=== PATIENT | male | born 1935 | race Caucasian/White ===

== ENCOUNTER 2019-05-18 15:23 | Inpatient (IN) | payer MEDICARE, OTHER ==
[~2019-05-18] VITALS: Ht 170.2 cm; Wt 64.9 kg
[2019-05-18] MEDS ORDERED: Sodium Chloride 2,200 ML IVLG ONE (15:45)
--- NOTE | 2019-05-18 15:45 | Emergency Room Report ---
History of Present Illness General Chief Complaint: Syncope Source: Patient Present Illness HPI Disclaimer: Please note that this report is being documented using DRAGON technology. This can lead to erroneous entry secondary to incorrect interpretation by the dictating instrument. HPI: Patient is an 83-year-old primarily Congolese-speaking male with a reported history of an unknown "blood cancer" presenting for lightheadedness. The patient reports recent cough he states that for the first time today he felt lightheaded while in the bathroom. He nearly lost his balance but was able to catch himself and denies any head injury or full loss of consciousness. He denies recent fever but does report a nonproductive cough and feeling generally weak. He denies any recent vomiting, diarrhea, rash, chest pain, shortness of breath. He denies any swelling, heart disease, kidney or liver issues. Denies any drug or alcohol use. He is somewhat of a poor historian and does not know what medications he is supposed to be taking. He states he gets his medical care for his cancer at [facility]. He has not had any chemotherapy, no radiation, no other treatment for his cancer yet according to him. PMH: Unspecified cancer PSH: Denies Allergies: Denies Social Hx: Denies drug, alcohol or tobacco use Allergies: Coded Allergies: No Known Allergies (Unverified , 05/18/19) Nursing Documentation-PMH Past Medical History: No History, Except For Hx Cardiac Problems: Yes Hx Hypertension: Yes Hx Cancer: Yes - blood cancer Review of Systems All Other Systems: negative except mentioned in HPI Physical Exam Vital Signs Date Time Temp Pulse Resp B/P (MAP) Pulse Ox O2 Delivery O2 Flow Rate FiO2 05/18/19 15:28 98.2 100 18 125/76 (92) 99 Room Air General: Awake and alert, appears fatigued and rundown, afebrile HEENT: NC/AT. EOMI. dry mucous membranes Cardiovascular: Tachycardic. S1 and S2 normal. No murmur appreciated Resp: Tachypnea. Increased in the work of breathing. No cough, wheezing or crackles appreciated Abdomen: Abdomen is soft, nondistended. Nontender Skin: Intact. No abrasions, laceration or rash over the exposed skin MSK: Normal tone and bulk. Moving all extremities. No obvious deformity. No lower extremity edema Neuro: Awake and alert. Mentating appropriately and following commands though is a poor historian Medical Decision Making Diagnostic Impression: Primary Impression: Upper respiratory infection Additional Impressions: Pneumonia Dehydration Electrolyte abnormality CHF (congestive heart failure) ER Course This an 83-year-old male presenting for evaluation of an episode of lightheadedness occurring prior to arrival. He is a poor historian but states he does have a history of cancer and complains of a recent cough without fever or other symptoms. He is currently denying any complaints aside from feeling fatigued and worn out over the past few days. He arrives tachycardic and slightly hypotensive with systolic pressures in the high 80s. He is tachypneic and appears to be having increased work of breathing. I am concerned that there may be a infectious process occurring at this time given his recent fatigue and therefore we will start a broad infectious work-up though we will also send cardiac markers and tox screen. We will attempt to obtain records from [facility] as well. He is somewhat ill-appearing and I believe he require admission. Laboratory Tests Test 05/18/19 15:40 05/18/19 16:17 05/18/19 16:26 White Blood Count 3.2 K/UL (4.8-10.8) L Red Blood Count 3.95 M/UL (4.70-6.10) L Hemoglobin 11.6 G/DL (14.2-18.0) L Hematocrit 33.8 % (42.0-52.0) L Mean Corpuscular Volume 85 FL (80-99) Mean Corpuscular Hemoglobin 29.4 PG (27.0-31.0) Mean Corpuscular Hemoglobin Concent 34.4 G/DL (32.0-36.0) Red Cell Distribution Width 14.0 % (11.6-14.8) Platelet Count 91 K/UL (150-450) L Mean Platelet Volume 6.9 FL (6.5-10.1) Neutrophils (%) (Auto) % (45.0-75.0) Lymphocytes (%) (Auto) % (20.0-45.0) Monocytes (%) (Auto) % (1.0-10.0) Eosinophils (%) (Auto) % (0.0-3.0) Basophils (%) (Auto) % (0.0-2.0) Differential Total Cells Counted 100 Neutrophils % (Manual) 71 % (45-75) Lymphocytes % (Manual) 22 % (20-45) Monocytes % (Manual) 3 % (1-10) Eosinophils % (Manual) 0 % (0-3) Basophils % (Manual) 0 % (0-2) Band Neutrophils 4 % (0-8) Platelet Estimate Decreased L Platelet Morphology Normal Red Blood Cell Morphology Normal Sodium Level 134 MMOL/L (136-145) L Potassium Level 3.2 MMOL/L (3.5-5.1) L Chloride Level 100 MMOL/L (98-107) Carbon Dioxide Level 24 MMOL/L (21-32) Anion Gap 10 mmol/L (5-15) Blood Urea Nitrogen 22 mg/dL (7-18) H Creatinine 1.2 MG/DL (0.55-1.30) Estimate Glomerular Filtration Rate mL/min (>60) Glucose Level 132 MG/DL (74-106) H Lactic Acid Level 2.10 mmol/L (0.4-2.0) H Calcium Level 8.0 MG/DL (8.5-10.1) L Phosphorus Level 1.1 MG/DL (2.5-4.9) L Magnesium Level 1.6 MG/DL (1.8-2.4) L Total Bilirubin 1.2 MG/DL (0.2-1.0) H Direct Bilirubin 0.7 MG/DL (0.0-0.3) H Aspartate Amino Transferase (AST) 81 U/L (15-37) H Alanine Aminotransferase (ALT) 97 U/L (12-78) H Alkaline Phosphatase 363 U/L (46-116) H Total Creatine Kinase 14 U/L (26-308) L Creatine Kinase MB < 0.5 NG/ML (0.0-3.6) Creatine Kinase MB Relative Index 3.5 Troponin I 0.000 ng/mL (0.000-0.056) Pro-B-Type Natriuretic Peptide 2933 pg/mL (0-125) H Total Protein 4.6 G/DL (6.4-8.2) L Albumin 1.9 G/DL (3.4-5.0) L Globulin 2.7 g/dL Albumin/Globulin Ratio 0.7 (1.0-2.7) L Serum Alcohol < 3 mg/dL Arterial Blood pH 7.517 (7.350-7.450) Arterial Blood Partial Pressure CO2 28.4 mmHg (35.0-45.0) L Arterial Blood Partial Pressure O2 74.9 mmHg (75.0-100.0) L Arterial Blood HCO3 22.5 mmol/L (22.0-26.0) Arterial Blood Oxygen Saturation 95.3 % (95-100) Arterial Blood Base Excess 0.3 (-2-2) Mir Test Positive Urine Color Pale yellow Urine Appearance Clear Urine pH 6 (4.5-8.0) Urine Specific [place] 1.005 (1.005-1.035) Urine Protein Negative (NEGATIVE) Urine Glucose (UA) Negative (NEGATIVE) Urine Ketones Negative (NEGATIVE) Urine Blood Negative (NEGATIVE) Urine Nitrite Negative (NEGATIVE) Urine Bilirubin Negative (NEGATIVE) Urine Urobilinogen Normal MG/DL (0.0-1.0) Urine Leukocyte Esterase Negative (NEGATIVE) Urine Opiates Screen Negative (NEGATIVE) Urine Barbiturates Screen Negative (NEGATIVE) Phencyclidine (PCP) Screen Negative (NEGATIVE) Urine Amphetamines Screen Negative (NEGATIVE) Urine Benzodiazepines Screen Negative (NEGATIVE) Urine Cocaine Screen Negative (NEGATIVE) Urine Marijuana (THC) Screen Negative (NEGATIVE) Microbiology Date/Time Source Procedure Growth Status 05/18/19 15:50 Nasal Nares - Final Complete 05/18/19 15:50 Nasal Nares - Final Complete EKG Diagnostic Results EKG Time: 15:58 Rate: tachycardiac Rhythm: NSR ST Segments: no acute changes Other Impression Sinus tachycardia, left axis deviation, normal intervals, no ST segment changes. Rhythm Strip Diag. Results Rhythm Strip Time: 15:58 EP Interpretation: yes Rate: 100s Rhythm: NSR, no PVC's, no ectopy Chest X-Ray Diagnostic Results Chest X-Ray Diagnostic Results : # of Views/Limited/Complete: 1 View Indication: Shortness of Breath EP Interpretation: Yes Interpretation: no effusion, no pneumothorax, other - Possible consolidation of the right lower lobe in the left middle lobe Impression: Other - Bilateral haziness, possible infiltrates Electronically Signed by: Electronically signed by Dr. Terrell Slaughter Reevaluation Time: 18:08 Last Vital Signs Date Time Temp Pulse Resp B/P (MAP) Pulse Ox O2 Delivery O2 Flow Rate FiO2 05/18/19 15:28 98.2 100 18 125/76 (92) 99 Room Air Reevaluation Impression Labs show hyponatremia, hypokalemia, slightly elevated lactate at 2.1, hypomagnesemia and phosphatemia. His peptide is slightly elevated but troponin is negative. Questionable infiltrates on chest x-ray but treated with ceftriaxone and azithromycin. I discussed this with his PMD, Dr. Mcneill, who is requesting the patient be admitted to [facility]. He states that because of his CML he had a similar presentation several months ago where it became septic from severe pneumonia. He was requesting that the patient be transferred to [facility] which we will arrange. He is stable for transfer.. 2100: Could not arrange transfer to [facility]. The patient will be admitted to our center and then possibly transferred as an inpatient. Remains in stable condition will be admitted to telemetry. Disposition: ADMITTED INPATIENT Condition: Serious Terrell Slaughter MD May 18, 2019 15:45
[2019-05-18 15:58] VITALS: BP 89/56
--- NOTE | 2019-05-18 16:00 | NUR ---
ED Nurse Note:pt. was BIBA from home with syncopal epysode today, pt. fell without head injury, A/Ox3 blood and cultures sent to labs, given IV fluids,
[2019-05-18 16:06] LABS: HEMATOCRIT 33.8 % (42.0-52.0); HEMOGLOBIN 11.6 G/DL (14.2-18.0); MEAN CORPUSCULAR VOLUME 85 FL (80-99); PLATELET COUNT 91 K/UL (150-450); RED BLOOD COUNT 3.95 M/UL (4.70-6.10); WHITE BLOOD COUNT 3.2 K/UL (4.8-10.8)
[2019-05-18 16:17] LABS: ANION GAP 10 mmol/L (5-15); BLOOD UREA NITROGEN 22 mg/dL (7-18); CARBON DIOXIDE 24 MMOL/L (21-32); CHLORIDE 100 MMOL/L (98-107); CREATININE 1.2 MG/DL (0.55-1.30); POTASSIUM 3.2 MMOL/L (3.5-5.1); SODIUM 134 MMOL/L (136-145)
[2019-05-18] MEDS ORDERED: SULFAMETHOXAZO1 EAC1 ORAL (16:23)
[2019-05-18] MEDS ORDERED: AVODART0.5 MG ORAL (16:23)
[2019-05-18] MEDS ORDERED: FAMOTIDINE20 MG ORAL (16:23)
[2019-05-18] MEDS ORDERED: FLOMAX0.4 MG ORAL (16:23)
[2019-05-18] MEDS ORDERED: RENA-VITE RX T1 EAC1 PO (16:23)
[2019-05-18] MEDS ORDERED: SODIUM BICARBO650 MG PO (16:23)
[2019-05-18] MEDS ORDERED: NEXIUM40 MG ORAL (16:23)
[2019-05-18 16:24] LABS: PHOSPHORUS 1.1 MG/DL (2.5-4.9)
[2019-05-18 16:33] LABS: ALANINE AMINOTRANSFERASE 97 U/L (12-78); ALBUMIN 1.9 G/DL (3.4-5.0); ALBUMIN/GLOBULIN RATIO 0.7 (1.0-2.7); ALKALINE PHOSPHATASE 363 U/L (46-116); ASPARTATE AMINO TRANSFERASE 81 U/L (15-37); BILIRUBIN,TOTAL 1.2 MG/DL (0.2-1.0); CKMB < 0.5 NG/ML (0.0-3.6); CREATINE KINASE 14 U/L (26-308)
--- NOTE | 2019-05-18 16:33 | NUR ---
ED Nurse Note:urine sent to labs, continue to monitor
[2019-05-18 16:35] VITALS: BP 113/73
[2019-05-18 16:35] LABS: BILIRUBIN,DIRECT 0.7 MG/DL (0.0-0.3)
[2019-05-18 16:53] LABS: APPEARANCE,URINE CLEAR; BILIRUBIN, URINE NEGATIVE (NEGATIVE); COLOR,URINE PALE YELLOW; GLUCOSE, URINE (UA) NEGATIVE (NEGATIVE); KETONES,URINE NEGATIVE (NEGATIVE); LEUKOCYTE ESTERASE ,URINE NEGATIVE (NEGATIVE); NITRITE,URINE NEGATIVE (NEGATIVE); PH,URINE 6 (4.5-8.0); PROTEIN,URINE NEGATIVE (NEGATIVE); UROBILINOGEN,URINE NORMAL MG/DL (0.0-1.0)
--- NOTE | 2019-05-18 17:07 | Diagnostic Imaging Report ---
Indication: Shortness of breath Technique: One view of the chest Comparison: none Findings: There is equivocal minimal interstitial prominence. Lungs and pleural spaces are clear otherwise. The heart size is normal. There is torturous ectatic and calcified. Upper mediastinum is unremarkable. Impression: Equivocal minimal interstitial prominence, could indicate mild interstitial edema. Correlate with clinical findings No acute process otherwise
[2019-05-18] MEDS ORDERED: Azithromycin 500 MG in NS 275 ML IV ONE (17:15)
[2019-05-18] MEDS ORDERED: cefTRIAXone 1 GM in NS 55 ML IVPB ONE (17:15)
--- NOTE | 2019-05-18 18:02 | NUR ---
ED Nurse Note:sent lactic reflax to labs
[2019-05-18 19:12] VITALS: BP 98/60
--- NOTE | 2019-05-18 19:38 | NUR ---
ER Nurse Note: Was reported that repeat lactic acid reflex was hemolyzed by lab; redrew and sent to lab. Pt stable, no signs of distress; calm and resting in bed. SLIV RT AC; patent. Awaiting admission orders; will conitinue to jake.
[2019-05-18 20:43] VITALS: BP 100/58
--- NOTE | 2019-05-18 20:44 | NUR ---
ER Nurse Note: Pt asleep, easily arousable, no signs of distress. Pt VSS, 2L NC at 98% O2, denies pain. SLIV RT AC; patent. All orders completed per ERMD orders. All safety measures met; will continue to montior.
[2019-05-18 23:00] VITALS: BP 110/64
--- NOTE | 2019-05-18 23:00 | NUR ---
ER Nurse Note: Report given to CAITY Sylvester for continuity of care. Pt stable, no signs of distress.
[2019-05-19] VITALS: BP 107/63
--- NOTE | 2019-05-19 00:18 | NUR ---
NURSE NOTES: Received pt from CAITY Perez. Pt awake, alert, and talkative (Icelandic speaking only). Bed in lowest position. Call light within reach. Skin intact. Nova Ratio bottle inspector utilized. Called and left a message with Dr. Lezama, he called back with the following orders: - continue home meds - regular diet - cbc, bmp daily - ekg in am - continue abx from ER - scd dvt proph - troponin - blood culture, urine culture - mg 2gm iv - k phos 60 mv - prn zofran Will input vitals and will continue to monitor.
[2019-05-19] MEDS ORDERED: Potassium Phosphate 30 MM in NS 275 ML IV ONE ×3 (02:30→15:00)
[2019-05-19] MEDS ORDERED: traMADol 50mg tab ORAL PRN (02:30)
[2019-05-19] MEDS: NS w/KCl 20mEq 1000ml 1,000 ML IV SCH ×2 (02:30→15:50)
[2019-05-19] MEDS ORDERED: ASPIR 8181 MG ORAL (02:50)
[2019-05-19 04:00] VITALS: BP 101/58
--- NOTE | 2019-05-19 07:30 | NUR ---
NURSE NOTES: Received report from CAITY bryan. patient aox3 , easlily roused adn breathing easily with no sign of cardiac or respiratory distress. Bed in lowest, locked position and bed alarm on. IVF running. patient reluctant to eat despite family encouragement at bedside and this RN multiple attempts to encourage po fluids and protein. Lung sounds diminished but clear on auscultation and bowel sounds faint but present. Skin intact clean and dry with no signs of breakdown . patient can reposition self, but assisting with turn and position q2Hr for patient skin safety since patient appears sleepy. Call berman and urinal in reach. Spoke with teri at bedside and gave her phone # to CM/SW. This RN spoke with Sue in who stated no transfer orders placed now, therefore patient staying on 2E today.
[2019-05-19 07:32] LABS: HEMATOCRIT 30.2 % (42.0-52.0); HEMOGLOBIN 10.3 G/DL (14.2-18.0); MEAN CORPUSCULAR VOLUME 86 FL (80-99); PLATELET COUNT 93 K/UL (150-450); RED BLOOD COUNT 3.52 M/UL (4.70-6.10); RED CELL DISTRIBUTION WIDTH 15.1 % (11.6-14.8); WHITE BLOOD COUNT 2.9 K/UL (4.8-10.8)
--- NOTE | 2019-05-19 07:50 | NUR ---
HAND-OFF: Report given to CAITY Solano. Pt stable.
[2019-05-19 07:53] LABS: ANION GAP 8 mmol/L (5-15); BLOOD UREA NITROGEN 17 mg/dL (7-18); CALCIUM 7.5 MG/DL (8.5-10.1); CARBON DIOXIDE 25 MMOL/L (21-32); CHLORIDE 104 MMOL/L (98-107); POTASSIUM 3.1 MMOL/L (3.5-5.1); SODIUM 136 MMOL/L (136-145)
[2019-05-19 08:00] VITALS: BP 103/62
[2019-05-19] MEDS: Tamsulosin 0.4mg cap ORAL SCH (09:00)
[2019-05-19] MEDS: Bactrim SS Tab ORAL SCH (09:00)
[2019-05-19] MEDS: Aspirin EC 81mg tab ORAL SCH (09:00)
[2019-05-19] MEDS: Sodium Bicarbonate 650mg Tab ORAL SCH ×2 (09:00→18:00)
[2019-05-19 12:00] VITALS: BP 104/61
--- NOTE | 2019-05-19 14:39 | History & Physical ---
History and Physical History & Physicial DICT # [id number] Greyson Lezama MD May 19, 2019 14:39
--- NOTE | 2019-05-19 14:54 | Infectious Diseases Prog Note ---
Assessment/Plan Problems: (1) Pneumonia Assessment & Plan: with cough productive , will screen him for influenza , place on droplets isolation , continue zithromax and switch ceftriaxone to cefepime , CT chest to further evaluate his lungs (2) H/O pneumocystis pneumonia Assessment & Plan: continue bactrim SS daily for snf suppression since on rituxan , with H/O PCP pneumonia (3) CLL (chronic lymphocytic leukemia) Assessment & Plan: on rituxan monthly , follow up with oncology (4) Dehydration Assessment & Plan: continue IVF , monitor renal function Subjective Allergies: Coded Allergies: No Known Allergies (Unverified , 05/18/19) Objective Vital Signs Last 24 Hour Vital Signs Date Time Temp Pulse Resp B/P (MAP) Pulse Ox O2 Delivery O2 Flow Rate FiO2 05/19/19 12:00 80 05/19/19 12:00 97.2 81 104/61 (75) 95 05/19/19 09:00 Room Air 05/19/19 08:00 97.3 90 103/62 (76) 95 05/19/19 08:00 75 05/19/19 04:00 76 05/19/19 04:00 75 101/58 (72) 94 05/19/19 01:49 Nasal Cannula 2.0 05/19/19 00:00 96.0 60 16 107/63 (78) 97 05/19/19 00:00 79 05/18/19 23:00 98.2 78 21 110/64 97 Nasal Cannula 2.0 05/18/19 23:00 98.2 76 18 110/64 98 Nasal Cannula 2.0 05/18/19 20:43 99.0 81 21 100/58 98 Nasal Cannula 2.0 05/18/19 19:12 86 20 98/60 98 Nasal Cannula 2.0 05/18/19 16:35 99.0 89 25 113/73 99 Room Air 05/18/19 15:58 99.0 97 18 89/56 99 Room Air 05/18/19 15:28 98.2 100 18 125/76 (92) 99 Room Air Height (Feet): 5 Height (Inches): 7.00 Weight (Pounds): 160 Microbiology Date/Time Source Procedure Growth Status 05/18/19 15:50 Nasal Nares - Final Complete 05/18/19 15:50 Nasal Nares - Final Complete Laboratory Tests Test 05/18/19 15:40 05/18/19 16:17 05/18/19 16:26 05/18/19 19:35 White Blood Count 3.2 K/UL (4.8-10.8) L Red Blood Count 3.95 M/UL (4.70-6.10) L Hemoglobin 11.6 G/DL (14.2-18.0) L Hematocrit 33.8 % (42.0-52.0) L Mean Corpuscular Volume 85 FL (80-99) Mean Corpuscular Hemoglobin 29.4 PG (27.0-31.0) Mean Corpuscular Hemoglobin Concent 34.4 G/DL (32.0-36.0) Red Cell Distribution Width 14.0 % (11.6-14.8) Platelet Count 91 K/UL (150-450) L Mean Platelet Volume 6.9 FL (6.5-10.1) Neutrophils (%) (Auto) % (45.0-75.0) Lymphocytes (%) (Auto) % (20.0-45.0) Monocytes (%) (Auto) % (1.0-10.0) Eosinophils (%) (Auto) % (0.0-3.0) Basophils (%) (Auto) % (0.0-2.0) Differential Total Cells Counted 100 Neutrophils % (Manual) 71 % (45-75) Lymphocytes % (Manual) 22 % (20-45) Monocytes % (Manual) 3 % (1-10) Eosinophils % (Manual) 0 % (0-3) Basophils % (Manual) 0 % (0-2) Band Neutrophils 4 % (0-8) Platelet Estimate Decreased L Platelet Morphology Normal Red Blood Cell Morphology Normal Sodium Level 134 MMOL/L (136-145) L Potassium Level 3.2 MMOL/L (3.5-5.1) L Chloride Level 100 MMOL/L (98-107) Carbon Dioxide Level 24 MMOL/L (21-32) Anion Gap 10 mmol/L (5-15) Blood Urea Nitrogen 22 mg/dL (7-18) H Creatinine 1.2 MG/DL (0.55-1.30) Estimat Glomerular Filtration Rate mL/min (>60) Glucose Level 132 MG/DL (74-106) H Lactic Acid Level 2.10 mmol/L (0.4-2.0) H 0.80 mmol/L (0.66-2.22) Calcium Level 8.0 MG/DL (8.5-10.1) L Phosphorus Level 1.1 MG/DL (2.5-4.9) L Magnesium Level 1.6 MG/DL (1.8-2.4) L Total Bilirubin 1.2 MG/DL (0.2-1.0) H Direct Bilirubin 0.7 MG/DL (0.0-0.3) H Aspartate Amino Transf (AST/SGOT) 81 U/L (15-37) H Alanine Aminotransferase (ALT/SGPT) 97 U/L (12-78) H Alkaline Phosphatase 363 U/L (46-116) H Total Creatine Kinase 14 U/L (26-308) L Creatine Kinase MB < 0.5 NG/ML (0.0-3.6) Creatine Kinase MB Relative Index 3.5 Troponin I 0.000 ng/mL (0.000-0.056) Pro-B-Type Natriuretic Peptide 2933 pg/mL (0-125) H Total Protein 4.6 G/DL (6.4-8.2) L Albumin 1.9 G/DL (3.4-5.0) L Globulin 2.7 g/dL Albumin/Globulin Ratio 0.7 (1.0-2.7) L Serum Alcohol < 3 mg/dL Arterial Blood pH 7.517 (7.350-7.450) Arterial Blood Partial Pressure CO2 28.4 mmHg (35.0-45.0) L Arterial Blood Partial Pressure O2 74.9 mmHg (75.0-100.0) L Arterial Blood HCO3 22.5 mmol/L (22.0-26.0) Arterial Blood Oxygen Saturation 95.3 % (95-100) Arterial Blood Base Excess 0.3 (-2-2) Mir Test Positive Urine Color Pale yellow Urine Appearance Clear Urine pH 6 (4.5-8.0) Urine Specific [place] 1.005 (1.005-1.035) Urine Protein Negative (NEGATIVE) Urine Glucose (UA) Negative (NEGATIVE) Urine Ketones Negative (NEGATIVE) Urine Blood Negative (NEGATIVE) Urine Nitrite Negative (NEGATIVE) Urine Bilirubin Negative (NEGATIVE) Urine Urobilinogen Normal MG/DL (0.0-1.0) Urine Leukocyte Esterase Negative (NEGATIVE) Urine Opiates Screen Negative (NEGATIVE) Urine Barbiturates Screen Negative (NEGATIVE) Phencyclidine (PCP) Screen Negative (NEGATIVE) Urine Amphetamines Screen Negative (NEGATIVE) Urine Benzodiazepines Screen Negative (NEGATIVE) Urine Cocaine Screen Negative (NEGATIVE) Urine Marijuana (THC) Screen Negative (NEGATIVE) Test 05/19/19 06:54 White Blood Count 2.9 K/UL (4.8-10.8) L Red Blood Count 3.52 M/UL (4.70-6.10) L Hemoglobin 10.3 G/DL (14.2-18.0) L Hematocrit 30.2 % (42.0-52.0) L Mean Corpuscular Volume 86 FL (80-99) Mean Corpuscular Hemoglobin 29.2 PG (27.0-31.0) Mean Corpuscular Hemoglobin Concent 34.0 G/DL (32.0-36.0) Red Cell Distribution Width 15.1 % (11.6-14.8) H Platelet Count 93 K/UL (150-450) L Mean Platelet Volume 6.6 FL (6.5-10.1) Neutrophils (%) (Auto) % (45.0-75.0) Lymphocytes (%) (Auto) % (20.0-45.0) Monocytes (%) (Auto) % (1.0-10.0) Eosinophils (%) (Auto) % (0.0-3.0) Basophils (%) (Auto) % (0.0-2.0) Differential Total Cells Counted 100 Neutrophils % (Manual) 76 % (45-75) H Lymphocytes % (Manual) 14 % (20-45) L Monocytes % (Manual) 9 % (1-10) Eosinophils % (Manual) 1 % (0-3) Basophils % (Manual) 0 % (0-2) Band Neutrophils 0 % (0-8) Platelet Estimate Decreased L Platelet Morphology Normal Anisocytosis 1+ Sodium Level 136 MMOL/L (136-145) Potassium Level 3.1 MMOL/L (3.5-5.1) L Chloride Level 104 MMOL/L (98-107) Carbon Dioxide Level 25 MMOL/L (21-32) Anion Gap 8 mmol/L (5-15) Blood Urea Nitrogen 17 mg/dL (7-18) Creatinine 1.0 MG/DL (0.55-1.30) Estimat Glomerular Filtration Rate mL/min (>60) Glucose Level 112 MG/DL (74-106) H Calcium Level 7.5 MG/DL (8.5-10.1) L Troponin I 0.018 ng/mL (0.000-0.056) Current Medications Medications (Trade) Dose Ordered Sig/Tony Route PRN Reason Start Time Stop Time Status Last Admin Dose Admin Aspirin (Ecotrin) 81 mg DAILY ORAL 05/19/19 09:00 06/18/19 08:59 05/19/19 09:00 Azithromycin 500 mg/Dextrose 275 ml @ 275 mls/hr Q24HRS IV 05/19/19 17:00 05/25/19 17:59 Ceftriaxone Sodium 1 gm/ Dextrose 55 ml @ 110 mls/hr Q24H IVPB 05/19/19 18:00 05/26/19 17:59 Docusate Sodium (Colace) 100 mg BEDTIME ORAL 05/19/19 21:00 06/18/19 20:59 Famotidine (Pepcid) 20 mg DAILY ORAL 05/19/19 09:00 06/18/19 08:59 05/19/19 09:00 Finasteride (Proscar) 5 mg DAILY ORAL 05/19/19 09:00 06/18/19 08:59 05/19/19 09:00 Ondansetron HCl (Zofran) 4 mg Q6H PRN IVP Nausea & Vomiting 05/19/19 03:15 06/18/19 03:14 Potassium Chloride/Sodium Chloride 1,000 ml @ 75 mls/hr [id number] IV 05/19/19 02:30 06/18/19 02:29 05/19/19 02:30 Potassium Phosphate 30 mm/ Sodium Chloride 285 ml @ 47.5 mls/hr ONCE ONCE IV 05/19/19 15:00 05/19/19 20:59 Sodium Bicarbonate (NaHCO3) 650 mg BID ORAL 05/19/19 09:00 06/18/19 08:59 05/19/19 09:00 Tamsulosin HCl (Flomax) 0.4 mg DAILY ORAL 05/19/19 09:00 06/18/19 08:59 05/19/19 09:00 Tramadol HCl (Ultram) 50 mg Q6H PRN ORAL for pain 05/19/19 02:30 05/26/19 02:29 Trimethoprim/ Sulfamethoxazole (Bactrim Single Strength) 1 tab DAILY ORAL 05/19/19 09:00 05/26/19 08:59 05/19/19 09:[address] M.D. May 19, 2019 14:54
[2019-05-19 15:50] LABS: ALANINE AMINOTRANSFERASE 89 U/L (12-78); ALBUMIN 1.5 G/DL (3.4-5.0); ALBUMIN/GLOBULIN RATIO 0.7 (1.0-2.7); ALKALINE PHOSPHATASE 314 U/L (46-116); ANION GAP 11 mmol/L (5-15); ASPARTATE AMINO TRANSFERASE 68 U/L (15-37); BLOOD UREA NITROGEN 16 mg/dL (7-18); CALCIUM 7.3 MG/DL (8.5-10.1); CARBON DIOXIDE 21 MMOL/L (21-32); CHLORIDE 106 MMOL/L (98-107); CREATININE 0.9 MG/DL (0.55-1.30); POTASSIUM 4.1 MMOL/L (3.5-5.1); SODIUM 138 MMOL/L (136-145)
[2019-05-19 16:00] VITALS: BP 119/72
[2019-05-19] MEDS: Cefepime HCl 2 GM in D5W 55 ML IVPB SCH ×2 (16:00→23:09)
--- NOTE | 2019-05-19 16:02 | NUR ---
Social Service Note SW spoke with patient's step-dgt Dr. Danay Santiago [phone]. Step-dgt is requesting transfer to [facility] as this is where patient has received all medical care. SW explained process of transfer. SW also address impending dc plan. Family is requesting dc to [facility]. SW notified Dr. Calderon. Will continue to monitor and assist as needed.
[2019-05-19] MEDS: Azithromycin 500 MG in D5W 275 ML IV SCH (17:00)
--- NOTE | 2019-05-19 17:11 | Cardiology Report ---
APPROVED REPORT EXAM: Two-dimensional and M-mode echocardiogram with Doppler and color Doppler. INDICATION Dyspnea M-Mode DIMENSIONS IVSd1.1 (0.7-1.1cm) LVDd3.5 (3.5-5.6cm) PWd1.0 (0.7-1.1cm) IVSs1.6 cm LVDs2.3 (2.5-4.0cm) PWs1.2 cm Technically difficult study due to poor acoustical windows. Study quality precludes accurate assessment of regional wall motion and or valve pathology Normal left ventricular chamber size, systolic function and wall motion to extent visualized. Left ventricular ejection fraction estimated to be 55-60%. No evidence left ventricular hypertrophy. No pericardial effusion. All other cardiac chamber sizes are within normal limits. Aortic valve calcification with normal cusp excursion . Mildly thickened mitral valve leaflets with normal excursion. Mild mitral annulus and aortic root calcification. Pulmonic valve not well visualized. IVC at normal size with physiologic collapse . A color flow and spectral Doppler study was performed and revealed: No aortic insufficiency . Mitral diastolic velocities suggest reduced left ventricular relaxation c/w mild LV diastolic dysfunction (Grade I ) Trace mitral regurgitation. Mild tricuspid regurgitation. Tricuspid systolic velocities suggests peak right ventricular systolic pressure of 20mmHg.
[2019-05-19] MEDS ORDERED: Phospha 250 Neutral tab ORAL SCH (17:45)
--- NOTE | 2019-05-19 17:47 | Cardiology Report ---
APPROVED REPORT EKG Measurement Heart [id number] Sinus rhythm with premature supraventricular complexes and with occasional premature ventricular complexes Low voltage QRS Prolonged QT Abnormal ECG
--- NOTE | 2019-05-19 17:51 | Cardiology Report ---
APPROVED REPORT EKG Measurement Heart [id number] Normal sinus rhythm Nonspecific ST abnormality Abnormal ECG
[2019-05-19] MEDS ORDERED: cefTRIAXone 1 GM in D5W 55 ML IVPB SCH (18:00)
--- NOTE | 2019-05-19 19:02 | Cardiology Progress Note ---
Assessment/Plan Assessment/Plan [id number] Objective Last 24 Hour Vital Signs Date Time Temp Pulse Resp B/P (MAP) Pulse Ox O2 Delivery O2 Flow Rate FiO2 05/19/19 16:00 98.4 88 119/72 (88) 95 05/19/19 12:00 80 05/19/19 12:00 97.2 81 104/61 (75) 95 05/19/19 09:00 Room Air 05/19/19 08:00 97.3 90 103/62 (76) 95 05/19/19 08:00 75 05/19/19 04:00 76 05/19/19 04:00 75 101/58 (72) 94 05/19/19 01:49 Nasal Cannula 2.0 05/19/19 00:00 96.0 60 16 107/63 (78) 97 05/19/19 00:00 79 05/18/19 23:00 98.2 78 21 110/64 97 Nasal Cannula 2.0 05/18/19 23:00 98.2 76 18 110/64 98 Nasal Cannula 2.0 05/18/19 20:43 99.0 81 21 100/58 98 Nasal Cannula 2.0 05/18/19 19:12 86 20 98/60 98 Nasal Cannula 2.0 Intake and Output 05/18/19 05/19/19 19:00 07:00 Intake Total 2530 ml Output Total 100 ml Balance 2430 ml IV Total 2530 ml Output Urine Total 100 ml # Voids 1 Laboratory Tests Test 05/18/19 19:35 05/19/19 06:54 05/19/19 14:20 Lactic Acid Level 0.80 mmol/L (0.66-2.22) White Blood Count 2.9 K/UL (4.8-10.8) L Red Blood Count 3.52 M/UL (4.70-6.10) L Hemoglobin 10.3 G/DL (14.2-18.0) L Hematocrit 30.2 % (42.0-52.0) L Mean Corpuscular Volume 86 FL (80-99) Mean Corpuscular Hemoglobin 29.2 PG (27.0-31.0) Mean Corpuscular Hemoglobin Concent 34.0 G/DL (32.0-36.0) Red Cell Distribution Width 15.1 % (11.6-14.8) H Platelet Count 93 K/UL (150-450) L Mean Platelet Volume 6.6 FL (6.5-10.1) Neutrophils (%) (Auto) % (45.0-75.0) Lymphocytes (%) (Auto) % (20.0-45.0) Monocytes (%) (Auto) % (1.0-10.0) Eosinophils (%) (Auto) % (0.0-3.0) Basophils (%) (Auto) % (0.0-2.0) Differential Total Cells Counted 100 Neutrophils % (Manual) 76 % (45-75) H Lymphocytes % (Manual) 14 % (20-45) L Monocytes % (Manual) 9 % (1-10) Eosinophils % (Manual) 1 % (0-3) Basophils % (Manual) 0 % (0-2) Band Neutrophils 0 % (0-8) Platelet Estimate Decreased L Platelet Morphology Normal Anisocytosis 1+ Sodium Level 136 MMOL/L (136-145) 138 MMOL/L (136-145) Potassium Level 3.1 MMOL/L (3.5-5.1) L 4.1 MMOL/L (3.5-5.1) Chloride Level 104 MMOL/L (98-107) 106 MMOL/L (98-107) Carbon Dioxide Level 25 MMOL/L (21-32) 21 MMOL/L (21-32) Anion Gap 8 mmol/L (5-15) 11 mmol/L (5-15) Blood Urea Nitrogen 17 mg/dL (7-18) 16 mg/dL (7-18) Creatinine 1.0 MG/DL (0.55-1.30) 0.9 MG/DL (0.55-1.30) Estimat Glomerular Filtration Rate mL/min (>60) mL/min (>60) Glucose Level 112 MG/DL (74-106) H 119 MG/DL (74-106) H Calcium Level 7.5 MG/DL (8.5-10.1) L 7.3 MG/DL (8.5-10.1) L Troponin I 0.018 ng/mL (0.000-0.056) Total Bilirubin 1.0 MG/DL (0.2-1.0) Aspartate Amino Transf (AST/SGOT) 68 U/L (15-37) H Alanine Aminotransferase (ALT/SGPT) 89 U/L (12-78) H Alkaline Phosphatase 314 U/L (46-116) H Total Protein 3.6 G/DL (6.4-8.2) L Albumin 1.5 G/DL (3.4-5.0) L Globulin 2.1 g/dL Albumin/Globulin Ratio 0.7 (1.0-2.7) L Thyroid Stimulating Hormone (TSH) 1.332 uiU/mL (0.358-3.740) Microbiology Date/Time Source Procedure Growth Status 05/18/19 15:50 Nasal Nares - Final Complete 05/18/19 15:50 Nasal Nares - Final Complete Frank Alaniz MD May 19, 2019 19:02
--- NOTE | 2019-05-19 19:30 | NUR ---
NURSE NOTES: Received patient from CAITY Gaitan. Patient resting in bed comfortably, no signs of distress or pain noted. Patient is Gambian speaking and able to make needs known. IV sit checked, patent and intact, no signs of redness, bleeding, or infiltration. Bed in lowest position, brakes on, side rails up x2, and call light within reach. Will continue with plan of care.
[2019-05-19 20:00] VITALS: BP 103/67
--- NOTE | 2019-05-19 20:12 | NUR ---
NURSE NOTES: Report given to CAITY Grey.
--- NOTE | 2019-05-19 20:30 | History and Physical Report ---
DATE OF ADMISSION: 05/18/2019 REASON FOR ADMISSION: Lightheadedness. HISTORY OF PRESENT ILLNESS: The patient is an 83-year-old male with history of CKD stage 3, chronic urinary retention with indwelling Mandujano catheter, CLL, PCP pneumonia in the past, septic shock, CHF with systolic dysfunction, prior enterococcal UTI, CAD, GERD who presented with lightheadedness. No loss of consciousness. No fall. No chest pain. No fevers or chills. No nausea, vomiting, diarrhea, or constipation. In the ER, his temperature was 99. His vitals were stable though they transiently dropped to 80s and he has been saturating well on room air at 2 L. Laboratory evaluation was significant for baseline pancytopenia. ABG was 7.51/28/74/92/95, and troponin was negative initially and then 0.018. Urinalysis was unremarkable. Urine tox screen was unremarkable and the remainder of the laboratory workup was unremarkable except for mild transaminitis and elevated alkaline phosphatase. The patient himself feels markedly improved, but per report, he is eating minimal, though he denies this. PAST MEDICAL HISTORY: 1. CLL. 2. CAD. 3. CKD. 4. GERD. 5. PCP pneumonia in the past. 6. BPH. 7. Chronic indwelling Mandujano catheter. 8. History of septic shock in the past with glabrata fungemia. 9. History of multiple UTIs in the past. ALLERGIES: No known drug allergies. MEDICATIONS: Prior to admission medications reviewed. Current medications reviewed. SOCIAL HISTORY: He was at rehabilitation center until recently, now he is at home. No tobacco, alcohol, or drug use. FAMILY HISTORY: Noncontributory. REVIEW OF SYSTEMS: Negative on history of present illness. PHYSICAL EXAMINATION: VITAL SIGNS: Temperature 97.3, pulse 90, blood pressure 103/62, respiratory rate 20. GENERAL: He is well-developed, well-nourished, elderly male, in no acute distress. Awake, alert, and oriented x3. HEENT: Normocephalic and atraumatic. Oropharynx is clear with moist mucous membranes. NECK: Supple without lymphadenopathy or jugular venous distention. CHEST: Clear to auscultation bilaterally. HEART: Regular rate and rhythm. ABDOMEN: Soft, nontender, and nondistended. EXTREMITIES: No cyanosis, clubbing, or edema ANCILLARY DATA: Sodium 134, potassium 3.2, chloride 100, bicarb 20, BUN 22, creatinine 1.2, glucose 132. Lactic acid initially 2.1 and then 0.8, calcium 8, phosphorus 1.1, magnesium 1.6. Total bilirubin 1.2, direct bilirubin 0.7, AST 81, ALT , alkaline phosphatase 363. CK 14. Troponin 0.00 and then 0.018. BNP 2933. Total protein 4.6, albumin 1.9. Urinalysis negative. Urine tox negative. Alcohol negative. Rapid flu negative. Chest x-ray in the emergency department shows some mild interstitial prominence, otherwise ASSESSMENT: The patient is an 83-year-old male with a history of CAD, CKD, GERD, CLL, prior PCP pneumonia, BPH, urinary Mandujano, protein-calorie malnutrition, deconditioning, presenting with a presyncopal episode and concern initially for sepsis, now hemodynamically stable. PROBLEM LIST: 1. Presyncopal episode, possibly vasovagal versus dehydration. 2. Lactic acidosis, resolved. 3. Possible underlying infectious process, though no obvious source. 4. Abnormal LFTs. 5. History of PCP pneumonia in the past. 6. CAD. 7. CKD. 8. GERD. 9. CLL. 10. Pancytopenia. TREATMENT PLAN: 1. Continue telemetry. 2. Check echo, CT brain, carotid duplex. 3. Monitor volumes and renal function, maintenance IV fluids, replete electrolytes, renal evaluation. 4. Continue Rocephin and azithromycin for now (day 2), follow up cultures, though I doubt the patient is infected and with likely curtailed in next 1 to 2 days, Infectious Diseases evaluation. 5. Monitor LFTs, check lipase, check abdominal ultrasound. 6. Continue Bactrim for PCP prophylaxis. 7. Continue prior to admission medications. 8. DVT prophylaxis, SCDs. 9. The patient is a Full Code. 10. Continue to discuss goals of care. 11. PT/OT. Greyson Lezama M.D. DR: Brian JOB#: [id number] CC:
[2019-05-19] MEDS: Docusate 100mg cap ORAL SCH (21:37)
[2019-05-19] MEDS: Potassium Phosphate 15 MEQ in 1/2 NS 1000ml 1,000 ML IV SCH (21:37)
--- NOTE | 2019-05-19 22:30 | Consultation ---
DATE OF CONSULTATION: 05/19/2019 INFECTIOUS DISEASE CONSULTATION CONSULTING PHYSICIAN: Lionel Lane M.D. REQUESTING PHYSICIAN: Greyson Lezama M.D. REASON FOR CONSULTATION: Pneumonia in an immunocompromised patient, who is on Rituxan for his CLL. Recommendation for antibiotics treatment with history of recent fungemia. HISTORY OF PRESENT ILLNESS: The patient is an 83-year-old, [place] Verdean speaking male with past medical history significant for CLL on monthly Rituxan, PCP pneumonia in December of 2018, septic shock due to Earline glabrata fungemia from infected Port-A-Cath in January of 2019, status post removal of Port-A-Cath, and E. faecalis urinary tract infection in January of 2019, presented to [facility] emergency room with syncopal episode and productive cough. His cough has been there for 7 days almost was dry at the beginning, now productive of phlegm, unclear what color his phlegm is, but no blood in his sputum. Denied any recent travel or sick contact. Denied any shortness of breath or chest pain. The patient has been taking his Bactrim and daily suppression dose since he was diagnosed with PCP pneumonia since December of this year as per his report. In the emergency room, chest x-ray showed interstitial infiltration concerning for pneumonia. So, he was started on ceftriaxone and Zithromax and admitted to the medical/tele monitor unit and an Infectious Disease consultation was requested for antibiotics guidance and further management. As of note, the patient is a Cape Verdean speaker mainly. History was obtained by [place] Verdean assembling inspector at the bedside. REVIEW OF SYSTEM: A 14-point of system reviewed were all negative apart from the one I mentioned above in my History and Physical. PAST MEDICAL HISTORY: Significant for CLL, PCP pneumonia, anemia due to infected Port-A-Cath status post removal, and urinary tract infection due to E. faecalis. PAST SURGICAL HISTORY: He has a Port-A-Cath placement and removal in January of this year due to fungemia. MEDICATIONS: The patient is currently on, 1. Ceftriaxone 1 g IV q.24 hours. 2. Azithromycin 500 mg q.24 hours. 3. Bactrim single-strength 1 tablet oral daily. For the rest of his medication, please refer to MARs. ALLERGIES: He has no known drug allergy. SOCIAL HISTORY: The patient lives at home with family. Denied using any drugs, tobacco, or alcohol. LABORATORY DATA: Laboratories showed white count of 2.9, hemoglobin of 10.3, hematocrit of 30.2, and platelet count of 93,000. BUN of 17 and creatinine of 1. AST of 81 and ALT of 97 with alkaline phosphatase of 363. Urinalysis negative for infection. IMAGING: Chest x-ray showed equivocal minimal interstitial prominence, could indicate mild interstitial edema. PHYSICAL EXAMINATION: VITAL SIGNS: Temperature 97.2, pulse 80, respirations 16, blood pressure 104/61, and saturation 95% on room air. GENERAL: An elderly male, lying in bed, awake, alert, oriented, and hard of hearing. Cape Verdean speaker mainly not in acute distress. HEENT: Normocephalic and atraumatic. Pupils are reactive to light equally. Pale sclerae. Dry oral mucosa. No exudate or thrush. No ulceration. NECK: Supple. No lymphadenopathy. CARDIOVASCULAR: Regular rate and rhythm. No murmur. No gallop. LUNGS: He had diminished breathing sounds at the bases with mild wheezing. No rales. No crackles. Normal in respiratory efforts. ABDOMEN: Soft, nontender, and nondistended. Normal bowel sounds. No hepatosplenomegaly or ascites. EXTREMITY: No edema or cyanosis. SKIN: No rash. No hives. GENITOURINARY: Normal inspection. No Mandujano. ASSESSMENT AND RECOMMENDATIONS: 1. Pneumonia with productive cough and interstitial infiltration. We will screen the patient for influenza and place him on droplet isolation for now. Continue Zithromax and switch ceftriaxone to cefepime empiric coverage for now. We will order CT chest to further evaluate his lungs and to rule out other pathology. We will send sputum for culture. 2. History of Pneumocystis pneumonia. Continue Bactrim single strength daily for long-term suppression since he is on Rituxan with history of PCP pneumonia in the past. 3. CLL. On Rituxan monthly. Followup with oncology. He was previously on steroid, but that was discontinued. 4. History of Earline glabrata fungemia due to infected Port-A-Cath status post micafungin treatment and removal of his Port-A-Cath in January of 2019. 5. Dehydration. Continue intravenous fluids. Monitor renal function. Thank you for the consult. ID will continue to follow. Please feel free to call with any question. Lionel Lane M.D. DR: NILA JOB#: [id number] CC:
--- NOTE | 2019-05-19 23:00 | Consultation ---
DATE OF CONSULTATION: 05/19/2019 CARDIOLOGY CONSULTATION CONSULTING PHYSICIAN: Frank Alaniz M.D. REFERRING PHYSICIAN: Greyson Lezama M.D. REASON FOR REFERRAL: Syncope. HISTORY OF PRESENT ILLNESS: This is an elderly gentleman who is Sudanese-speaking only. Unfortunately, no Sudanese lock maintenance supervisor is available at the present time and I have tried to contact the patient's family members and I have not been able to get a hold of anybody that speaks Sudanese. In either case, information is obtained from review of the patient's present chart and at [facility] as well as my examination of the patient. The emergency room physician indicates a history of the patient presenting with lightheadedness . States that for the first time today, he felt lightheaded while in the bathroom. He nearly lost his balance, but was able to catch himself. Denied any head injury or loss of consciousness. He denied any recent fevers, but reported that he has a nonproductive cough and feeling generally weak. Denied any vomiting, diarrhea, rash, chest pain, or shortness of breath. He denied any swelling either. The patient is admitted to the hospital. It was told by the emergency room physician that the patient was somewhat of a poor historian and did not know his medications either. His records from [facility], which I had a chance to review. He is usually followed by Dr. Oakes. PAST MEDICAL HISTORY: Positive for physical deconditioning, chronic urinary retention with an indwelling Mandujano catheter, benign prostatic hypertrophy, history of PCP pneumonia that he has recently completed therapy, has chronic systolic heart failure, chronic kidney disease stage 3, coronary artery disease, gastroesophageal reflux disease, chronic lymphocytic leukemia, sepsis secondary to Earline fungemia that resolved, history of urinary tract infection, acute toxic metabolic encephalopathy, and respiratory failure are listed as diagnoses. He also carries a diagnoses of sensory hearing loss, tympanosclerosis, laryngopharyngeal reflux disease, respiratory failure, lung infiltrates, septic shock, abnormal liver function tests. He has had a history of lumbar kyphoplasty. He has had pulmonary fiberoptic bronchoscopy. ALLERGIES: He is not allergic to any medications. SOCIAL HISTORY: He is . Never smoked. No alcohol use. REVIEW OF SYSTEMS: Really not able to obtain because of the language barrier. PHYSICAL EXAMINATION: VITAL SIGNS: Blood pressure is anywhere between 101/58 to 119/72, heart rates in the 70s to 80s range, temperature maximum he has been documented here is 99 degrees when he was in the first 3 hours of his admission. GENERAL: Shows to be elderly gentleman, in no respiratory distress. NECK: Supple. No jugular venous distention. LUNGS: Some crackles on the left base. CARDIAC: Regular rate and rhythm. No heaves or thrills noted. ABDOMEN: Soft, nontender. Positive bowel sounds. LABORATORY VALUES: His laboratories, his white count is 2.9 down from 3.2 with hemoglobin 10.3, and platelet count of 93,000. Blood gases pH of 7.5, pCO2 of 28, pO2 of 75, bicarb of 23. Sodium 138, potassium 4.1, chloride 106, bicarb 21, BUN of 16, creatinine 0.9, glucose of 112 to 119. Lactic acid level was 2.1 on admission and subsequently 0.8. His calcium is 7.3. Liver function tests - AST and ALT minimally elevated at 68 and 89 and alkaline phosphatase elevated at 314. Troponin 0.00 and subsequently 0.018. His albumin is 1.5. TSH of 1.32. Tox screen is negative. Urinalysis is fairly unremarkable. Chest x-ray shows equivocal minimal atelectasis, interstitial prominence, could be mild interstitial edema. Clinical correlation is recommended. An echocardiogram was performed today. It is a technically difficult study with ejection fraction of 55 to 60% to the extent visualized. No significant valvular regurgitation was noted. His echocardiogram at [facility] had shown mildly depressed EF of 41% previously back in January of 2019 and mild diastolic relaxation abnormalities at that time. His telemetry data shows sinus rhythm, some premature ventricular complexes are noted. No significant bradycardia or tachycardia. EKG showed sinus rhythm, normal QRS axis, and some premature ventricular complexes are noted on that EKG as well. EKG from home shows no evidence of bradycardia either. ASSESSMENT AND PLAN: 1. Near syncopal episode. 2. Questionable pneumonia. 3. Benign prostatic hypertrophy with urinary retention. 4. History of recent pneumonia back in January of 2019. 5. Chronic kidney disease. 6. Chronic systolic heart failure. 7. Reported history of coronary artery disease. 8. Gastroesophageal reflux disease. 9. Chronic lymphocytic leukemia. This patient was admitted to the hospital because of near syncopal episode. His laboratory values are significantly abnormal. His hemoglobin level of 11.6 down to 10.3 with some hydration and his bicarb was 25, now 21. A set of orthostatic vitals will be performed. His echocardiogram was technically difficult. The ejection fraction estimated was normal here as compared to the one that he had at [facility] in January of 2019. Liver function tests are mildly abnormal. His IVC was not significantly dilated suggestive of passive congestion. Other etiology to be evaluated. Further recommendations if more detailed information about the episode of near syncope becomes available. For his CLL, he is taking Rituxan at home and is followed by Dr. San on chronic basis. He has some low levels of thrombocytopenia, which is likely secondary to CLL, otherwise no other significant abnormalities noted. We will continue to monitor on telemetry. Provide necessary recommendations as needed. Frank Alaniz M.D. DR: BRONSON JOB#: [id number] CC:
--- NOTE | 2019-05-19 23:30 | Consultation ---
DATE OF CONSULTATION: 05/19/2019 NEPHROLOGY CONSULTATION CONSULTING PHYSICIAN: Edmar Gutiérrez M.D. REASON FOR CONSULTATION: Electrolyte imbalance. HISTORY OF PRESENT ILLNESS: The patient presented to the hospital on 05/18/2019 with syncope. Apparently, there was some dizziness and lightheadedness, but no full loss of consciousness. He is a poor historian. There is a history of chronic lymphocytic leukemia and prior electrolyte imbalance. ALLERGIES: None known. MEDICATIONS: From the computer database include aspirin 81 mg daily, Avodart 0.5 mg daily, Nexium 40 mg daily, famotidine 20 mg daily, sodium bicarbonate 650 t.i.d., Bactrim single strength b.i.d., Flomax 0.4 daily, vitamin B complex daily. Not clear of the above. SURGERIES: He denies prior surgeries. SYSTEM REVIEW: HEAD, EYES, EARS, NOSE, AND THROAT: He states his vision and hearing is good. ENDOCRINE: He is not aware of any diabetes or thyroid disease. PULMONARY: No current shortness of breath. Apparently he had a nonproductive cough that was reported. CARDIAC: He denies chest pain or palpitations, but he is concerned there maybe some sort of heart problem. He cannot identify. GASTROINTESTINAL: No nausea, vomiting, or diarrhea. GENITOURINARY: No dysuria or difficulty voiding, but he is taking prostate medicines. MUSCULOSKELETAL: No history of severe arthritis. PHYSICAL EXAMINATION: GENERAL: The patient is alert man, lying in bed, in no acute distress. VITAL SIGNS: Temperature 98.4, pulse 88, blood pressure 119/72. HEAD, EYES, EARS, NOSE, AND THROAT: Sclerae are nonicteric. Ocular motions intact in all directions. Oral mucosa slightly dry. NECK: No adenopathy or thyroid enlargement. LUNGS: Clear. HEART: Regular rhythm. I hear no murmur. ABDOMEN: Soft without organomegaly or masses. EXTREMITIES: No edema, cyanosis, or clubbing. NEUROLOGIC: He is alert and responsive. Ocular motions intact in all directions. Smile symmetric. Tongue is midline. He moves all extremities. PERTINENT LABORATORY DATA: On initial of labs 05/18/2019, sodium 134, potassium 3.2, BUN 22, and creatinine 1.2. Bilirubin 1.2. AST 81, ALT 97. CK 14. BNP 2933. Albumin of 1.9. Repeat sodium 138, potassium 4.1, albumin is 1.5. The urine dipstick negative. CBC shows a white count of 2.9, hemoglobin 10.3, 14% lymphocytes, 76% neutrophils, and platelets of 93. Drug screen is negative. A chest x-ray shows no acute process, equivocal minimal interstitial prominence. IMPRESSION: 1. Hypokalemia, etiology unclear, possibly from medications, which may not be a complete accurate outpatient list, possible GI losses. 2. Hyponatremia, mild. 3. Questionable chronic lymphocytic leukemia versus other hematologic disease. 4. History of taking medications for BPH. 5. History of taking sodium bicarbonate, presumably for metabolic acidosis, which is not present currently. PLAN: We will observe the patient and recheck electrolytes. May need further potassium replacement. I will try to review records from [facility] to get further information as he is unable to provide detailed history. Edmar Gutiérrez M.D. DR: ROBB JOB#: [id number] CC:
[2019-05-20] VITALS: BP 103/60
[2019-05-20 04:00] VITALS: BP 102/80
--- NOTE | 2019-05-20 07:15 | NUR ---
HAND-OFF: Report given to CAITY Oneal. PLan of care endorsed.
[2019-05-20 07:24] LABS: HEMATOCRIT 29.7 % (42.0-52.0); HEMOGLOBIN 10.2 G/DL (14.2-18.0); MEAN CORPUSCULAR VOLUME 85 FL (80-99); PLATELET COUNT 92 K/UL (150-450); RED BLOOD COUNT 3.48 M/UL (4.70-6.10); RED CELL DISTRIBUTION WIDTH 15.3 % (11.6-14.8); WHITE BLOOD COUNT 3.1 K/UL (4.8-10.8)
[2019-05-20 07:42] LABS: ANION GAP 10 mmol/L (5-15); BLOOD UREA NITROGEN 19 mg/dL (7-18); CALCIUM 7.5 MG/DL (8.5-10.1); CARBON DIOXIDE 22 MMOL/L (21-32); CHLORIDE 104 MMOL/L (98-107); CREATININE 1.1 MG/DL (0.55-1.30); POTASSIUM 3.6 MMOL/L (3.5-5.1); SODIUM 136 MMOL/L (136-145)
[2019-05-20 08:00] VITALS: BP 119/72
[2019-05-20 08:04] LABS: PHOSPHORUS 2.6 MG/DL (2.5-4.9)
[2019-05-20] MEDS: Tamsulosin 0.4mg cap ORAL SCH (09:00)
[2019-05-20] MEDS: Cefepime HCl 2 GM in D5W 55 ML IVPB SCH ×2 (09:44→21:21)
[2019-05-20] MEDS: Bactrim SS Tab ORAL SCH (09:46)
[2019-05-20] MEDS: Aspirin EC 81mg tab ORAL SCH (09:46)
[2019-05-20] MEDS: Magnesium Oxide 400mg tab ORAL SCH ×3 (09:46→18:00)
[2019-05-20] MEDS: Sodium Bicarbonate 650mg Tab ORAL SCH ×2 (09:46→18:00)
--- NOTE | 2019-05-20 10:12 | Pulmonology Progress Note ---
Assessment/Plan Assessment/Plan Pulmonary Progress Note. 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 No loss of consciousness. No fall. No chest pain. No fevers or chills. No nausea, vomiting, diarrhea, or constipation. Laboratory evaluation was significant for baseline pancytopenia. ABG was 7.51/28/74/92/95, and troponin was negative initially and then 0.018. Urinalysis was unremarkable. Urine tox screen was unremarkable and the remainder of the laboratory workup was unremarkable except for mild transaminitis and elevated alkaline phosphatase. The patient feels markedly improved PAST MEDICAL HISTORY: 1. CLL. 2. CAD. 3. CKD. 4. GERD. 5. PCP pneumonia in the past. 6. BPH. 7. Chronic indwelling Mandujano catheter. 8. History of septic shock in the past with glabrata fungemia. 9. History of multiple UTIs in the past. ALLERGIES: No known drug allergies. MEDICATIONS: Prior to admission medications reviewed. Current medications reviewed. SOCIAL HISTORY: He was at rehabilitation center until recently, now he is at home. No tobacco, alcohol, or drug use. FAMILY HISTORY: Noncontributory. REVIEW OF SYSTEMS: Negative on history of present illness. PHYSICAL EXAMINATION: VITAL SIGNS NOTED: GENERAL: He is well-developed, well-nourished, elderly male, in no acute distress. Awake, alert, and oriented x3. HEENT: Normocephalic and atraumatic. Oropharynx is clear with moist mucous membranes. NECK: Supple without lymphadenopathy or jugular venous distention. CHEST: Clear to auscultation bilaterally. HEART: Regular rate and rhythm. ABDOMEN: Soft, nontender, and nondistended. EXTREMITIES: No cyanosis, clubbing, or edema ANCILLARY DATA: Sodium 134, potassium 3.2, chloride 100, bicarb 20, BUN 22, creatinine 1.2, glucose 132. Lactic acid initially 2.1 and then 0.8, calcium 8, phosphorus 1.1, magnesium 1.6. Total bilirubin 1.2, direct bilirubin 0.7, AST 81, alkaline phosphatase 363. CK 14. Troponin 0.00 and then 0.018. BNP 2933. Total protein 4.6, albumin 1.9. Urinalysis negative. Urine tox negative. Alcohol negative. Rapid flu negative. Chest x-ray in the emergency department shows some mild interstitial prominence ASSESSMENT: The patient is an 83-year-old male with a history of CAD, CKD, GERD, CLL, prior PCP pneumonia, BPH, urinary Mandujano, protein-calorie malnutrition, deconditioning, presenting with a presyncopal episode and concern initially for sepsis, now hemodynamically stable. 1. Presyncopal episode, possibly vasovagal versus dehydration. 2. Lactic acidosis, resolved. 3. Possible underlying infectious process, though no obvious source. 4. Abnormal LFTs. 5. History of PCP pneumonia in the past. 6. CAD. 7. CKD. 8. GERD. 9. CLL. 10. Pancytopenia. PLAN: 1. Continue telemetry. 2. Check echo, CT brain, carotid duplex. 3. Monitor volumes and renal function, maintenance IV fluids, replete electrolytes, renal evaluation. 4. Continue Rocephin and azithromycin for now (day 2), follow up cultures, though I doubt the patient is infected and with likely curtailed in next 1 to 2 days, Infectious Diseases evaluation. 5. Monitor LFTs, check lipase, check abdominal ultrasound. 6. Continue Bactrim for PCP prophylaxis. 7. Continue prior to admission medications. 8. DVT prophylaxis, SCDs. 9. The patient is a Full Code. 10. Continue to discuss goals of care. 11. PT/OT. Subjective ROS Limited/Unobtainable: No Allergies: Coded Allergies: No Known Allergies (Unverified , 05/18/19) Objective Last 24 Hour Vital Signs Date Time Temp Pulse Resp B/P (MAP) Pulse Ox O2 Delivery O2 Flow Rate FiO2 05/20/19 04:00 80 05/20/19 04:00 97.3 99 20 102/80 (87) 100 05/20/19 00:00 97.0 92 21 103/60 (74) 91 05/20/19 00:00 94 05/19/19 21:00 92 100 122 05/19/19 21:00 Room Air 05/19/19 20:00 87 05/19/19 20:00 97.3 91 20 103/67 (79) 92 05/19/19 16:00 98.4 88 119/72 (88) 95 05/19/19 16:00 76 05/19/19 12:00 80 05/19/19 12:00 97.2 81 104/61 (75) 95 Intake and Output 05/19/19 05/20/19 19:00 07:00 Intake Total 660 ml 575 ml Output Total 400 ml Balance 660 ml 175 ml Intake Oral 660 ml 120 ml IV Total 455 ml Output Urine Total 400 ml # Voids 2 Microbiology Date/Time Source Procedure Growth Status 05/18/19 15:55 Blood Blood Culture - Preliminary NO GROWTH AFTER 24 HOURS Resulted 05/18/19 15:35 Blood Blood Culture - Preliminary NO GROWTH AFTER 24 HOURS Resulted 05/18/19 15:50 Nasal Nares - Final Complete 05/18/19 15:50 Nasal Nares - Final Complete 05/19/19 06:15 Urine,Clean Catch Urine Culture - Preliminary Mixed Gram Positive Organism Resulted Laboratory Tests 05/19/19 14:20: Sodium Level 138, Potassium Level 4.1, Chloride Level 106, Carbon Dioxide Level 21, Anion Gap 11, Blood Urea Nitrogen 16, Creatinine 0.9, Estimat Glomerular Filtration Rate , Glucose Level 119H, Calcium Level 7.3L, Total Bilirubin 1.0, Aspartate Amino Transf (AST/SGOT) 68H, Alanine Aminotransferase (ALT/SGPT) 89H, Alkaline Phosphatase 314H, Total Protein 3.6L, Albumin 1.5L, Globulin 2.1, Albumin/Globulin Ratio 0.7L, Thyroid Stimulating Hormone (TSH) 1.332 05/20/19 06:07: Sodium Level 136, Potassium Level 3.6, Chloride Level 104, Carbon Dioxide Level 22, Anion Gap 10, Blood Urea Nitrogen 19H, Creatinine 1.1, Estimat Glomerular Filtration Rate , Glucose Level 108H, Calcium Level 7.5L, White Blood Count 3.1L , Red Blood Count 3.48L, Hemoglobin 10.2L, Hematocrit 29.7L, Mean Corpuscular Volume 85, Mean Corpuscular Hemoglobin 29.4, Mean Corpuscular Hemoglobin Concent 34.3, Red Cell Distribution Width 15.3H, Platelet Count 92L, Mean Platelet Volume 5.7L, Neutrophils (%) (Auto) , Lymphocytes (%) (Auto) , Monocytes (%) (Auto) , Eosinophils (%) (Auto) , Basophils (%) (Auto) , Differential Total Cells Counted 100, Neutrophils % (Manual) 76H, Lymphocytes % (Manual) 7L, Monocytes % (Manual) 17H, Eosinophils % (Manual) 0, Basophils % ( Manual) 0, Band Neutrophils 0, Platelet Estimate DecreasedL, Platelet Morphology Normal, Phosphorus Level 2.6, Magnesium Level 2.1, Troponin I 0.016, Pro-B-Type Natriuretic Peptide 3300H Current Medications Medications (Trade) Dose Ordered Sig/Tony Route PRN Reason Start Time Stop Time Status Last Admin Dose Admin Aspirin (Ecotrin) 81 mg DAILY ORAL 05/19/19 09:00 06/18/19 08:59 05/20/19 09:46 Azithromycin 500 mg/Dextrose 275 ml @ 275 mls/hr Q24HRS IV 05/19/19 17:00 05/25/19 17:59 05/19/19 17:00 Cefepime HCl 2 gm/ Dextrose 55 ml @ 110 mls/hr EVERY 12 HOURS IVPB 05/19/19 16:00 05/26/19 15:59 05/20/19 09:44 Docusate Sodium (Colace) 100 mg BEDTIME ORAL 05/19/19 21:00 06/18/19 20:59 05/19/19 21:37 Famotidine (Pepcid) 20 mg DAILY ORAL 05/19/19 09:00 06/18/19 08:59 05/20/19 09:46 Finasteride (Proscar) 5 mg DAILY ORAL 05/19/19 09:00 06/18/19 08:59 05/20/19 09:45 Magnesium Oxide (Mag-Ox 400mg) 400 mg THREE TIMES A DAY ORAL 05/20/19 09:00 06/19/19 08:59 05/20/19 09:46 Ondansetron HCl (Zofran) 4 mg Q6H PRN IVP Nausea & Vomiting 05/19/19 03:15 06/18/19 03:14 Potassium Phosphate 15 meq/ Sodium Chloride 1,003.4091 ml @ 50 mls/hr Q20H5M IV 05/19/19 20:30 06/18/19 20:29 05/19/19 21:37 Sodium Bicarbonate (NaHCO3) 650 mg BID ORAL 05/19/19 09:00 06/18/19 08:59 05/20/19 09:46 Tamsulosin HCl (Flomax) 0.4 mg DAILY ORAL 05/19/19 09:00 06/18/19 08:59 05/19/19 09:00 Tramadol HCl (Ultram) 50 mg Q6H PRN ORAL for pain 05/19/19 02:30 05/26/19 02:29 Trimethoprim/ Sulfamethoxazole (Bactrim Single Strength) 1 tab DAILY ORAL 05/19/19 09:00 05/26/19 08:59 05/20/19 09:46 Anthony Mitchell MD May 20, 2019 10:12
--- NOTE | 2019-05-20 11:07 | Diagnostic Imaging Report ---
CT CHEST WITHOUT CONTRAST INDICATION: Shortness of breath TECHNIQUE: Continuous helical transaxial imaging of the chest was obtained. Coronal 2-D reformats were also obtained. Study obtained in a Siemens sensation [address] Automatic Exposure Control was utilized. Total Dose length Product (DLP): 741.[address] Dose Index Volume (CTDIvol): 16.1 mGy COMPARISON: Chest radiograph dated 05/18/2019 FINDINGS: Lungs and pleura: There is interstitial edema with patchy mosaic attenuation. There is diffuse pericardial thickening. There is patchy right lower lobe peribronchial consolidation. Moderate bilateral pleural effusions with associated compressive atelectasis. Heart and mediastinum: Thyroid is unremarkable. Heart is normal in size. There is a small pericardial effusion. Aortic valve is calcified. There is severe coronary artery atherosclerotic calcification. Airway: Patent. Lymph nodes: Prominent mediastinal lymph nodes. Right hilar lymph node measures up to 2 cm but is incompletely evaluated the absence of intravenous contrast. There is ill-defined right infrahilar soft tissue density posterior to the left atrium extending to the cranial to the ania measuring 4 x 4.1 cm. Vasculature: Vasculature is incompletely evaluated in the absence of intravenous contrast. Ascending aorta is enlarged, measuring up to 4.2 cm with aneurysmal dilatation extending to the arch, where measures 3.8 cm. Main pulmonary artery is normal in caliber. Upper abdomen: Splenomegaly. There is a 1.9 x 1.4 cm hypodensity in the medial aspect of the spleen. There is incompletely evaluated ascites. Gallbladder is decompressed with pericholecystic fluid. Bones and soft tissue:Bones are diffusely demineralized. There are multilevel discogenic degenerative changes of the visualized spine. IMPRESSION: 1. Right infrahilar airspace consolidation suspicious for pneumonia. 2. Pulmonary edema with bilateral moderate pleural effusions. 3. Right infrahilar/subcarinal soft tissue mass which may represent reactive subcarinal lymphadenopathy; however, evaluation is limited in the absence of intravenous contrast and neoplastic etiologies such as metastatic disease, primary pulmonary neoplasm, or esophageal neoplasm cannot be excluded. 4. Right hilar lymphadenopathy, incompletely evaluated in the absence of intravenous contrast. 5. Ascending and arch aortic aneurysms. 6. Splenomegaly with hypodense splenic lesion which is nonspecific but may represent lymphocele or hemangioma. 7. Ascites. The CT scanner at [facility] is accredited by the [employer] and the scans are performed using protocols designed to limit radiation exposure to as low as reasonably achievable to attain images of sufficient resolution adequate for diagnostic evaluation
--- NOTE | 2019-05-20 11:14 | Diagnostic Imaging Report ---
CT HEAD WITHOUT CONTRAST INDICATION: Reason For Exam: [facility] Technique: Continuous helical CT scanning of the head was performed without intravenous contrast material. Axial and coronal 5 mm sections were generated. Radiation dose was minimized using automated exposure control DOSE: Total Dose Length Product - DLP 1175.[address] Dose Index - CTDIvol(s) 62.7 mGy. COMPARISON: None available FINDINGS: There is no acute intracranial hemorrhage, mass effect or cortical edema. There are patchy periventricular and subcortical white matter hypodensities likely representing chronic ischemic microvascular disease. There is moderate cortical atrophy with commensurate dilatation of the ventricles. No hydrocephalus or cisternal effacement. The mastoid air cells and paranasal sinuses are unremarkable. No focal lesions of the bony calvarium or soft tissues of the scalp are seen. There is calcified and intracranial carotid arteries. IMPRESSION: No evidence of acute intracranial hemorrhage, mass effect or cortical edema. MRI may be obtained for more sensitive evaluation as clinically indicated. The CT scanner at [facility] is accredited by the [employer] and the scans are performed using protocols designed to limit radiation exposure to as low as reasonably achievable to attain images of sufficient resolution adequate for diagnostic evaluation.
--- NOTE | 2019-05-20 11:23 | Diagnostic Imaging Report ---
ABDOMINAL ULTRASOUND - COMPLETE INDICATION: Abdominal pain. TECHNIQUE: Multiplanar ultrasound examination of the abdomen with greyscale and doppler imaging. COMPARISON: CT chest dated 05/20/2019 FINDINGS: Liver: The liver is normal in size and demonstrates increased echogenicity. No focal abnormalities are noted. No intrahepatic biliary ductal dilatation. Gallbladder: There is no cholelithiasis. Gallbladder wall is thickened. There is no sonographic Luevano sign. Common bile duct: Normal in size, measuring 4.1 cm. Pancreas: The visualized portion of pancreas is normal in echogenicity. There are no masses. Kidneys: The kidneys are normal in size and echogenicity. There is no hydronephrosis. Spleen: The spleen is normal in size and echogenicity. Focal medial lesion seen on comparison CT chest is not visualized. Aorta: The aorta is mildly dilated, measuring approximately 2.4 cm proximally. Other findings: Bilateral pleural effusions. There is small volume ascites IMPRESSION: 1. Gallbladder wall thickening which may be reactive due to underlying ascites or systemic process as there are no other sonographic indications of acute cholecystitis. 2. Bilateral pleural effusions. Hepatic steatosis.
[2019-05-20 12:00] VITALS: BP 121/68
[2019-05-20 16:00] VITALS: BP 116/72
--- NOTE | 2019-05-20 16:18 | Infectious Diseases Prog Note ---
Assessment/Plan Problems: (1) Pneumonia Assessment & Plan: with cough productive , and right infrahilar infiltrates on CT scan suggestive of pneumonia , screening for influenza is negative , continue zithromax and cefepime empirically , aspiration precaution, swallow eval (2) H/O pneumocystis pneumonia Assessment & Plan: continue bactrim SS daily for fdc suppression since on rituxan , with H/O PCP pneumonia (3) CLL (chronic lymphocytic leukemia) Assessment & Plan: on rituxan monthly , follow up with oncology (4) Dehydration Assessment & Plan: continue IVF , monitor renal function Subjective Constitutional: Reports: fatigue HEENT: Reports: no symptoms Respiratory: Reports: dry cough Breasts: Reports: no symptoms Cardiovascular: Reports: no symptoms Gastrointestinal/Abdominal: Reports: no symptoms Genitourinary: Reports: no symptoms Neurologic: Reports: no symptoms Psychiatric: Reports: no symptoms Skin: Reports: no symptoms Endocrine: Reports: no symptoms Hematologic: Reports: no symptoms Musculoskeletal: Reports: no symptoms Allergies: Coded Allergies: No Known Allergies (Unverified , 05/18/19) Objective Vital Signs Last 24 Hour Vital Signs Date Time Temp Pulse Resp B/P (MAP) Pulse Ox O2 Delivery O2 Flow Rate FiO2 05/20/19 12:00 82 05/20/19 09:00 Room Air 05/20/19 08:00 88 05/20/19 04:00 80 05/20/19 04:00 97.3 99 20 102/80 (87) 100 05/20/19 00:00 97.0 92 21 103/60 (74) 91 05/20/19 00:00 94 05/19/19 21:00 92 100 122 05/19/19 21:00 Room Air 05/19/19 20:00 87 05/19/19 20:00 97.3 91 20 103/67 (79) 92 Height (Feet): 5 Height (Inches): 7.00 Weight (Pounds): 143 General Appearance: WD/WN, no acute distress HEENT: normocephalic, atraumatic, anicteric, mucous membranes moist, PERRL Respiratory/Chest: chest wall non-tender, no respiratory distress, no accessory muscle use, decreased breath sounds Cardiovascular: normal peripheral pulses, normal rate, regular rhythm, no gallop/murmur, no JVD Abdomen: normal bowel sounds, soft, non tender, no organomegaly, non distended , no mass, no scars Genitourinary: normal external genitalia Extremities: no cyanosis, no clubbing Skin: no rash, no lesions, no ulcers Neurologic/Psychiatric: devil tender II-XII grossly normal, alert, responsive Microbiology Date/Time Source Procedure Growth Status 05/18/19 15:55 Blood Blood Culture - Preliminary NO GROWTH AFTER 24 HOURS Resulted 05/18/19 15:35 Blood Blood Culture - Preliminary NO GROWTH AFTER 24 HOURS Resulted 05/18/19 15:50 Nasal Nares - Final Complete 05/18/19 15:50 Nasal Nares - Final Complete 05/19/19 06:15 Urine,Clean Catch Urine Culture - Preliminary Mixed Gram Positive Organism Resulted Laboratory Tests Test 05/20/19 06:07 White Blood Count 3.1 K/UL (4.8-10.8) L Red Blood Count 3.48 M/UL (4.70-6.10) L Hemoglobin 10.2 G/DL (14.2-18.0) L Hematocrit 29.7 % (42.0-52.0) L Mean Corpuscular Volume 85 FL (80-99) Mean Corpuscular Hemoglobin 29.4 PG (27.0-31.0) Mean Corpuscular Hemoglobin Concent 34.3 G/DL (32.0-36.0) Red Cell Distribution Width 15.3 % (11.6-14.8) H Platelet Count 92 K/UL (150-450) L Mean Platelet Volume 5.7 FL (6.5-10.1) L Neutrophils (%) (Auto) % (45.0-75.0) Lymphocytes (%) (Auto) % (20.0-45.0) Monocytes (%) (Auto) % (1.0-10.0) Eosinophils (%) (Auto) % (0.0-3.0) Basophils (%) (Auto) % (0.0-2.0) Differential Total Cells Counted 100 Neutrophils % (Manual) 76 % (45-75) H Lymphocytes % (Manual) 7 % (20-45) L Monocytes % (Manual) 17 % (1-10) H Eosinophils % (Manual) 0 % (0-3) Basophils % (Manual) 0 % (0-2) Band Neutrophils 0 % (0-8) Platelet Estimate Decreased L Platelet Morphology Normal Sodium Level 136 MMOL/L (136-145) Potassium Level 3.6 MMOL/L (3.5-5.1) Chloride Level 104 MMOL/L (98-107) Carbon Dioxide Level 22 MMOL/L (21-32) Anion Gap 10 mmol/L (5-15) Blood Urea Nitrogen 19 mg/dL (7-18) H Creatinine 1.1 MG/DL (0.55-1.30) Estimat Glomerular Filtration Rate mL/min (>60) Glucose Level 108 MG/DL (74-106) H Calcium Level 7.5 MG/DL (8.5-10.1) L Phosphorus Level 2.6 MG/DL (2.5-4.9) Magnesium Level 2.1 MG/DL (1.8-2.4) Troponin I 0.016 ng/mL (0.000-0.056) Pro-B-Type Natriuretic Peptide 3300 pg/mL (0-125) H Current Medications Medications (Trade) Dose Ordered Sig/Tony Route PRN Reason Start Time Stop Time Status Last Admin Dose Admin Aspirin (Ecotrin) 81 mg DAILY ORAL 05/19/19 09:00 06/18/19 08:59 05/20/19 09:46 Azithromycin 500 mg/Dextrose 275 ml @ 275 mls/hr Q24HRS IV 05/19/19 17:00 05/25/19 17:59 05/19/19 17:00 Cefepime HCl 2 gm/ Dextrose 55 ml @ 110 mls/hr EVERY 12 HOURS IVPB 05/19/19 16:00 05/26/19 15:59 05/20/19 09:44 Docusate Sodium (Colace) 100 mg BEDTIME ORAL 05/19/19 21:00 06/18/19 20:59 05/19/19 21:37 Famotidine (Pepcid) 20 mg DAILY ORAL 05/19/19 09:00 06/18/19 08:59 05/20/19 09:46 Finasteride (Proscar) 5 mg DAILY ORAL 05/19/19 09:00 06/18/19 08:59 05/20/19 09:45 Magnesium Oxide (Mag-Ox 400mg) 400 mg THREE TIMES A DAY ORAL 05/20/19 09:00 06/19/19 08:59 05/20/19 13:10 Ondansetron HCl (Zofran) 4 mg Q6H PRN IVP Nausea & Vomiting 05/19/19 03:15 06/18/19 03:14 Potassium Phosphate 15 meq/ Sodium Chloride 1,003.4091 ml @ 50 mls/hr Q20H5M IV 05/19/19 20:30 06/18/19 20:29 05/19/19 21:37 Sodium Bicarbonate (NaHCO3) 650 mg BID ORAL 05/19/19 09:00 06/18/19 08:59 05/20/19 09:46 Tamsulosin HCl (Flomax) 0.4 mg DAILY ORAL 05/19/19 09:00 06/18/19 08:59 05/20/19 09:00 Tramadol HCl (Ultram) 50 mg Q6H PRN ORAL for pain 05/19/19 02:30 05/26/19 02:29 Trimethoprim/ Sulfamethoxazole (Bactrim Single Strength) 1 tab DAILY ORAL 05/19/19 09:00 05/26/19 08:59 05/20/19 09:[address] M.D. May 20, 2019 16:18
[2019-05-20] MEDS: Potassium Phosphate 15 MEQ in 1/2 NS 1000ml 1,000 ML IV SCH (16:58)
[2019-05-20] MEDS: Azithromycin 500 MG in D5W 275 ML IV SCH (17:02)
--- NOTE | 2019-05-20 18:02 | Nephrology Progress Note ---
Assessment/Plan Problem List: (1) Hypokalemia (2) Hypomagnesemia (3) Hypophosphatemia (4) Electrolyte abnormality (5) Dehydration (6) Pneumonia (7) CLL (chronic lymphocytic leukemia) Plan phos still low 2.6, replace, abnormal lab could be from meds for CLL Subjective Constitutional: Reports: weakness HEENT: Reports: no symptoms Genitourinary: Reports: no symptoms Neurologic/Psychiatric: Reports: no symptoms Objective Objective Last 24 Hour Vital Signs Date Time Temp Pulse Resp B/P (MAP) Pulse Ox O2 Delivery O2 Flow Rate FiO2 05/20/19 16:00 84 05/20/19 12:00 82 05/20/19 09:00 Room Air 05/20/19 09:00 88 94 106 05/20/19 08:00 88 05/20/19 04:00 80 05/20/19 04:00 97.3 99 20 102/80 (87) 100 05/20/19 00:00 97.0 92 21 103/60 (74) 91 05/20/19 00:00 94 05/19/19 21:00 92 100 122 05/19/19 21:00 Room Air 05/19/19 20:00 87 05/19/19 20:00 97.3 91 20 103/67 (79) 92 Intake and Output 05/19/19 05/20/19 19:00 07:00 Intake Total 660 ml 575 ml Output Total 400 ml Balance 660 ml 175 ml Intake Oral 660 ml 120 ml IV Total 455 ml Output Urine Total 400 ml # Voids 2 Laboratory Tests 05/20/19 06:07: White Blood Count 3.1L, Red Blood Count 3.48L, Hemoglobin 10.2L, Hematocrit 29.7L, Mean Corpuscular Volume 85, Mean Corpuscular Hemoglobin 29.4, Mean Corpuscular Hemoglobin Concent 34.3, Red Cell Distribution Width 15.3H, Platelet Count 92L, Mean Platelet Volume 5.7L, Neutrophils (%) (Auto) , Lymphocytes (%) (Auto) , Monocytes (%) (Auto) , Eosinophils (%) (Auto) , Basophils (%) (Auto) , Differential Total Cells Counted 100, Neutrophils % ( Manual) 76H, Lymphocytes % (Manual) 7L, Monocytes % (Manual) 17H, Eosinophils % (Manual) 0, Basophils % (Manual) 0, Band Neutrophils 0, Platelet Estimate DecreasedL, Platelet Morphology Normal, Sodium Level 136, Potassium Level 3.6, Chloride Level 104, Carbon Dioxide Level 22, Anion Gap 10, Blood Urea Nitrogen 19H, Creatinine 1.1, Estimat Glomerular Filtration Rate , Glucose Level 108H, Calcium Level 7.5L, Phosphorus Level 2.6, Magnesium Level 2.1, Troponin I 0.016 , Pro-B-Type Natriuretic Peptide 3300H Height (Feet): 5 Height (Inches): 7.00 Weight (Pounds): 143 General Appearance: no apparent distress, alert EENT: normal ENT inspection Neck: normal alignment Cardiovascular: normal rate, regular rhythm Respiratory/Chest: lungs clear Abdomen: non tender, soft Extremities: no edema Neurologic: assembler unit II-XII grossly normal Edmar Gutiérrez MD May 20, 2019 18:02
[2019-05-20] MEDS: Phospha 250 Neutral tab ORAL SCH (18:15)
[2019-05-20 20:00] VITALS: BP 100/62
--- NOTE | 2019-05-20 20:42 | Cardiology Progress Note ---
Assessment/Plan Assessment/Plan 1. Near syncopal episode. 2. Questionable pneumonia. 3. Benign prostatic hypertrophy with urinary retention. 4. History of recent pneumonia back in January of 2019. 5. Chronic kidney disease. 6. Chronic systolic heart failure. 7. Reported history of coronary artery disease. 8. Gastroesophageal reflux disease. 9. Chronic lymphocytic leukemia tele neg bp is on the lower side cannot find results fo orthostatic vitals will reorder near syncoep likely volume related ct noed abx per primary team Subjective Cardiovascular: Denies: chest pain, lightheadedness Respiratory: Denies: shortness of breath Gastrointestinal/Abdominal: Denies: abdominal pain Objective Last 24 Hour Vital Signs Date Time Temp Pulse Resp B/P (MAP) Pulse Ox O2 Delivery O2 Flow Rate FiO2 05/20/19 20:00 98.9 93 18 100/62 (75) 97 05/20/19 16:00 84 05/20/19 16:00 98.1 86 18 116/72 (87) 95 05/20/19 12:00 82 05/20/19 12:00 97.8 82 18 121/68 (85) 95 05/20/19 09:00 Room Air 05/20/19 09:00 88 94 106 05/20/19 08:00 88 05/20/19 08:00 98.4 88 18 119/72 (88) 95 05/20/19 04:00 80 05/20/19 04:00 97.3 99 20 102/80 (87) 100 05/20/19 00:00 97.0 92 21 103/60 (74) 91 05/20/19 00:00 94 05/19/19 21:00 92 100 122 05/19/19 21:00 Room Air General Appearance: no apparent distress, alert Neck: supple Cardiovascular: normal rate, regular rhythm Respiratory/Chest: lungs clear, normal breath sounds Abdomen: normal bowel sounds, non tender, soft Extremities: no swelling Intake and Output 05/19/19 05/20/19 19:00 07:00 Intake Total 660 ml 575 ml Output Total 400 ml Balance 660 ml 175 ml Intake Oral 660 ml 120 ml IV Total 455 ml Output Urine Total 400 ml # Voids 2 Laboratory Tests Test 05/20/19 06:07 White Blood Count 3.1 K/UL (4.8-10.8) L Red Blood Count 3.48 M/UL (4.70-6.10) L Hemoglobin 10.2 G/DL (14.2-18.0) L Hematocrit 29.7 % (42.0-52.0) L Mean Corpuscular Volume 85 FL (80-99) Mean Corpuscular Hemoglobin 29.4 PG (27.0-31.0) Mean Corpuscular Hemoglobin Concent 34.3 G/DL (32.0-36.0) Red Cell Distribution Width 15.3 % (11.6-14.8) H Platelet Count 92 K/UL (150-450) L Mean Platelet Volume 5.7 FL (6.5-10.1) L Neutrophils (%) (Auto) % (45.0-75.0) Lymphocytes (%) (Auto) % (20.0-45.0) Monocytes (%) (Auto) % (1.0-10.0) Eosinophils (%) (Auto) % (0.0-3.0) Basophils (%) (Auto) % (0.0-2.0) Differential Total Cells Counted 100 Neutrophils % (Manual) 76 % (45-75) H Lymphocytes % (Manual) 7 % (20-45) L Monocytes % (Manual) 17 % (1-10) H Eosinophils % (Manual) 0 % (0-3) Basophils % (Manual) 0 % (0-2) Band Neutrophils 0 % (0-8) Platelet Estimate Decreased L Platelet Morphology Normal Sodium Level 136 MMOL/L (136-145) Potassium Level 3.6 MMOL/L (3.5-5.1) Chloride Level 104 MMOL/L (98-107) Carbon Dioxide Level 22 MMOL/L (21-32) Anion Gap 10 mmol/L (5-15) Blood Urea Nitrogen 19 mg/dL (7-18) H Creatinine 1.1 MG/DL (0.55-1.30) Estimat Glomerular Filtration Rate mL/min (>60) Glucose Level 108 MG/DL (74-106) H Calcium Level 7.5 MG/DL (8.5-10.1) L Phosphorus Level 2.6 MG/DL (2.5-4.9) Magnesium Level 2.1 MG/DL (1.8-2.4) Troponin I 0.016 ng/mL (0.000-0.056) Pro-B-Type Natriuretic Peptide 3300 pg/mL (0-125) H Microbiology Date/Time Source Procedure Growth Status 05/18/19 15:55 Blood Blood Culture - Preliminary NO GROWTH AFTER 24 HOURS Resulted 05/18/19 15:35 Blood Blood Culture - Preliminary NO GROWTH AFTER 24 HOURS Resulted 05/18/19 15:50 Nasal Nares - Final Complete 05/18/19 15:50 Nasal Nares - Final Complete 05/19/19 06:15 Urine,Clean Catch Urine Culture - Preliminary Mixed Gram Positive Organism Resulted Frank Alaniz MD May 20, 2019 20:42
[2019-05-20] MEDS: Docusate 100mg cap ORAL SCH (21:21)
[2019-05-21] VITALS: BP 111/69
[2019-05-21 04:00] VITALS: BP 113/73
[2019-05-21 07:19] LABS: HEMOGLOBIN 10.3 G/DL (14.2-18.0); MEAN CORPUSCULAR VOLUME 85 FL (80-99); PLATELET COUNT 104 K/UL (150-450); RED BLOOD COUNT 3.53 M/UL (4.70-6.10); RED CELL DISTRIBUTION WIDTH 15.8 % (11.6-14.8); WHITE BLOOD COUNT 3.4 K/UL (4.8-10.8)
[2019-05-21 07:47] LABS: ANION GAP 7 mmol/L (5-15); BLOOD UREA NITROGEN 18 mg/dL (7-18); CALCIUM 7.2 MG/DL (8.5-10.1); CARBON DIOXIDE 23 MMOL/L (21-32); CHLORIDE 103 MMOL/L (98-107); POTASSIUM 3.4 MMOL/L (3.5-5.1); SODIUM 133 MMOL/L (136-145)
[2019-05-21 08:00] VITALS: BP 103/59
--- NOTE | 2019-05-21 08:00 | NUR ---
NURSE NOTES: Pt awake/alert, breathing easily on room air, denies SOB and denies pain at this time. Vital signs stable with SR @ 81 on monitor. IV access LW flushed with 10 ml NS and locked. SCD in place and running. Bed left in low position, side rails up x 2 and call light left near pt's hand.
[2019-05-21] MEDS: Cefepime HCl 2 GM in D5W 55 ML IVPB SCH ×2 (09:02→21:25)
[2019-05-21] MEDS: Bactrim SS Tab ORAL SCH (09:03)
[2019-05-21] MEDS: Sodium Bicarbonate 650mg Tab ORAL SCH ×2 (09:03→18:41)
[2019-05-21] MEDS: Phospha 250 Neutral tab ORAL SCH ×3 (09:03→18:41)
[2019-05-21] MEDS: Tamsulosin 0.4mg cap ORAL SCH (09:03)
[2019-05-21] MEDS: Magnesium Oxide 400mg tab ORAL SCH ×3 (09:03→18:40)
[2019-05-21] MEDS: Aspirin EC 81mg tab ORAL SCH (09:03)
--- NOTE | 2019-05-21 10:53 | Pulmonology Progress Note ---
Assessment/Plan Assessment/Plan Pulmonary Progress Note. 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 No loss of consciousness. No fall. No chest pain. No fevers or chills. No nausea, vomiting, diarrhea, or constipation. Laboratory evaluation was significant for baseline pancytopenia. ABG was 7.51/28/74/92/95, and troponin was negative initially and then 0.018. Urinalysis was unremarkable. Urine tox screen was unremarkable and the remainder of the laboratory workup was unremarkable except for mild transaminitis and elevated alkaline phosphatase. No new complaints CT confirms Pneumonia, [address] LN PAST MEDICAL HISTORY: 1. CLL. 2. CAD. 3. CKD. 4. GERD. 5. PCP pneumonia in the past. 6. BPH. 7. Chronic indwelling Mandujano catheter. 8. History of septic shock in the past with glabrata fungemia. 9. History of multiple UTIs in the past. ALLERGIES: No known drug allergies. MEDICATIONS: Prior to admission medications reviewed. Current medications reviewed. SOCIAL HISTORY: He was at rehabilitation center until recently, now he is at home. No tobacco, alcohol, or drug use. FAMILY HISTORY: Noncontributory. REVIEW OF SYSTEMS: Negative on history of present illness. PHYSICAL EXAMINATION: VITAL SIGNS NOTED: GENERAL: He is well-developed, well-nourished, elderly male, in no acute distress. Awake, alert, and oriented x3. HEENT: Normocephalic and atraumatic. Oropharynx is clear with moist mucous membranes. NECK: Supple without lymphadenopathy or jugular venous distention. CHEST: Clear to auscultation bilaterally. HEART: Regular rate and rhythm. ABDOMEN: Soft, nontender, and nondistended. EXTREMITIES: No cyanosis, clubbing, or edema ANCILLARY DATA: Sodium 134, potassium 3.2, chloride 100, bicarb 20, BUN 22, creatinine 1.2, glucose 132. Lactic acid initially 2.1 and then 0.8, calcium 8, phosphorus 1.1, magnesium 1.6. Total bilirubin 1.2, direct bilirubin 0.7, AST 81, alkaline phosphatase 363. CK 14. Troponin 0.00 and then 0.018. BNP 2933. Total protein 4.6, albumin 1.9. Urinalysis negative. Urine tox negative. Alcohol negative. Rapid flu negative. Chest x-ray in the emergency department shows some mild interstitial prominence ASSESSMENT: The patient is an 83-year-old male with a history of CAD, CKD, GERD, CLL, prior PCP pneumonia, BPH, urinary Mandujano, protein-calorie malnutrition, deconditioning, presenting with a presyncopal episode and concern initially for sepsis, now hemodynamically stable. 1. Presyncopal episode, possibly vasovagal versus dehydration. 2. Lactic acidosis, resolved. 3. Possible underlying infectious process, though no obvious source. 4. Abnormal LFTs. 5. History of PCP pneumonia in the past. 6. CAD. 7. CKD. 8. GERD. 9. CLL. 10. Pancytopenia. PLAN: 1. Continue telemetry. 2. Check echo, CT brain, carotid duplex. 3. Monitor volumes and renal function, maintenance IV fluids, replete electrolytes, renal evaluation. 4. Continue Rocephin and azithromycin for now (day 2), follow up cultures, though I doubt the patient is infected and with likely curtailed in next 1 to 2 days, Infectious Diseases evaluation. 5. Monitor LFTs, check lipase, check abdominal ultrasound. 6. Continue Bactrim for PCP prophylaxis. 7. Continue prior to admission medications. 8. DVT prophylaxis, SCDs. 9. The patient is a Full Code. 10. Continue to discuss goals of care. 11. PT/OT. Subjective ROS Limited/Unobtainable: No Allergies: Coded Allergies: No Known Allergies (Unverified , 05/18/19) Objective Last 24 Hour Vital Signs Date Time Temp Pulse Resp B/P (MAP) Pulse Ox O2 Delivery O2 Flow Rate FiO2 05/21/19 08:05 Room Air 05/21/19 08:00 87 05/21/19 08:00 97.5 81 16 103/59 (74) 98 05/21/19 04:00 97.3 94 18 113/73 (86) 95 05/21/19 04:00 84 05/21/19 00:00 98.0 93 18 111/69 (83) 95 05/21/19 00:00 90 05/20/19 21:00 Room Air 05/20/19 20:00 98.9 93 18 100/62 (75) 97 05/20/19 20:00 102 05/20/19 16:00 84 05/20/19 16:00 98.1 86 18 116/72 (87) 95 05/20/19 12:00 82 05/20/19 12:00 97.8 82 18 121/68 (85) 95 Intake and Output 05/20/19 05/21/19 19:00 07:00 Intake Total 1000 ml Output Total 600 ml Balance 400 ml Intake Oral 1000 ml Output Urine Total 600 ml # Voids 3 Microbiology Date/Time Source Procedure Growth Status 05/18/19 15:55 Blood Blood Culture - Preliminary NO GROWTH AFTER 48 HOURS Resulted 05/18/19 15:35 Blood Blood Culture - Preliminary NO GROWTH AFTER 48 HOURS Resulted 05/18/19 21:40 Nasal Nares MRSA Culture - Final NO METHICILLIN RESISTANT STAPH AUREUS... Complete 05/18/19 15:50 Nasal Nares - Final Complete 05/18/19 15:50 Nasal Nares - Final Complete 05/19/19 06:15 Urine,Clean Catch Urine Culture - Final Mixed Gram Positive Organism Complete 05/18/19 21:40 Rectum - Final NO CARBAPENEM-RESISTANT ENTEROBACTERI... Complete 05/18/19 21:40 Rectum VRE Culture - Final Enterococcus Faecalis - Vre Complete Laboratory Tests 05/21/19 06:14: White Blood Count 3.4L, Red Blood Count 3.53L, Hemoglobin 10.3L, Hematocrit 30.0L, Mean Corpuscular Volume 85, Mean Corpuscular Hemoglobin 29.2, Mean Corpuscular Hemoglobin Concent 34.3, Red Cell Distribution Width 15.8H, Platelet Count 104L, Mean Platelet Volume 6.5, Neutrophils (%) (Auto) , Lymphocytes (%) (Auto) , Monocytes (%) (Auto) , Eosinophils (%) (Auto) , Basophils (%) (Auto) , Differential Total Cells Counted 100, Neutrophils % ( Manual) 67, Lymphocytes % (Manual) 18L, Monocytes % (Manual) 11H, Eosinophils % (Manual) 2, Basophils % (Manual) 0, Band Neutrophils 2, Platelet Estimate DecreasedL, Platelet Morphology Normal, Anisocytosis 1+, Sodium Level 133L, Potassium Level 3.4L, Chloride Level 103, Carbon Dioxide Level 23, Anion Gap 7, Blood Urea Nitrogen 18, Creatinine 1.0, Estimat Glomerular Filtration Rate , Glucose Level 94, Calcium Level 7.2L, Phosphorus Level 2.2L, Troponin I 0.017 Current Medications Medications (Trade) Dose Ordered Sig/Tony Route PRN Reason Start Time Stop Time Status Last Admin Dose Admin Aspirin (Ecotrin) 81 mg DAILY ORAL 05/19/19 09:00 06/18/19 08:59 05/21/19 09:03 Azithromycin 500 mg/Dextrose 275 ml @ 275 mls/hr Q24HRS IV 05/19/19 17:00 05/25/19 17:59 05/20/19 17:02 Cefepime HCl 2 gm/ Dextrose 55 ml @ 110 mls/hr EVERY 12 HOURS IVPB 05/19/19 16:00 05/26/19 15:59 05/21/19 09:02 Docusate Sodium (Colace) 100 mg BEDTIME ORAL 05/19/19 21:00 06/18/19 20:59 05/20/19 21:21 Famotidine (Pepcid) 20 mg DAILY ORAL 05/19/19 09:00 06/18/19 08:59 05/21/19 09:03 Finasteride (Proscar) 5 mg DAILY ORAL 05/19/19 09:00 06/18/19 08:59 05/21/19 09:03 Magnesium Oxide (Mag-Ox 400mg) 400 mg THREE TIMES A DAY ORAL 05/20/19 09:00 06/19/19 08:59 05/21/19 09:03 Ondansetron HCl (Zofran) 4 mg Q6H PRN IVP Nausea & Vomiting 05/19/19 03:15 06/18/19 03:14 Phosphorus (Phospha 250 Neutral) 250 mg THREE TIMES A DAY ORAL 05/20/19 18:15 06/19/19 18:14 05/21/19 09:03 Sodium Bicarbonate (NaHCO3) 650 mg BID ORAL 05/19/19 09:00 06/18/19 08:59 05/21/19 09:03 Tamsulosin HCl (Flomax) 0.4 mg DAILY ORAL 05/19/19 09:00 06/18/19 08:59 05/21/19 09:03 Tramadol HCl (Ultram) 50 mg Q6H PRN ORAL for pain 05/19/19 02:30 05/26/19 02:29 Trimethoprim/ Sulfamethoxazole (Bactrim Single Strength) 1 tab DAILY ORAL 05/19/19 09:00 05/26/19 08:59 05/21/19 09:03 Anthony Mitchell MD May 21, 2019 10:53
[2019-05-21 12:00] VITALS: BP_SYST 115; BP_SYST 92; BP_DIAS 64; BP_DIAS 73
--- NOTE | 2019-05-21 12:36 | NUR ---
NURSE NOTES: Pt dislodged IV access, will attempt to establish another.
--- NOTE | 2019-05-21 14:20 | Nephrology Progress Note ---
Assessment/Plan Problem List: (1) Hypokalemia (2) Hypomagnesemia (3) Hypophosphatemia (4) Electrolyte abnormality (5) Dehydration (6) Pneumonia (7) CLL (chronic lymphocytic leukemia) Plan phos still low 2.2, replace, abnormal lab could be from meds for CLL K still low Subjective Constitutional: Reports: weakness HEENT: Reports: no symptoms Genitourinary: Reports: no symptoms Neurologic/Psychiatric: Reports: no symptoms Objective Objective Last 24 Hour Vital Signs Date Time Temp Pulse Resp B/P (MAP) Pulse Ox O2 Delivery O2 Flow Rate FiO2 05/21/19 12:00 97.2 94 18 115/73 (87) 95 05/21/19 12:00 97.2 82 20 92/64 (73) 95 05/21/19 12:00 84 05/21/19 09:00 84 80 83 05/21/19 08:05 Room Air 05/21/19 08:00 87 05/21/19 08:00 97.5 81 16 103/59 (74) 98 05/21/19 04:00 97.3 94 18 113/73 (86) 95 05/21/19 04:00 84 05/21/19 00:00 98.0 93 18 111/69 (83) 95 05/21/19 00:00 90 05/20/19 21:00 Room Air 05/20/19 20:00 98.9 93 18 100/62 (75) 97 05/20/19 20:00 102 05/20/19 16:00 84 05/20/19 16:00 98.1 86 18 116/72 (87) 95 Intake and Output 05/20/19 05/21/19 18:59 06:59 Intake Total 1000 ml Output Total 600 ml Balance 400 ml Intake Oral 1000 ml Output Urine Total 600 ml # Voids 3 Laboratory Tests 05/21/19 06:14: White Blood Count 3.4L, Red Blood Count 3.53L, Hemoglobin 10.3L, Hematocrit 30.0L, Mean Corpuscular Volume 85, Mean Corpuscular Hemoglobin 29.2, Mean Corpuscular Hemoglobin Concent 34.3, Red Cell Distribution Width 15.8H, Platelet Count 104L, Mean Platelet Volume 6.5, Neutrophils (%) (Auto) , Lymphocytes (%) (Auto) , Monocytes (%) (Auto) , Eosinophils (%) (Auto) , Basophils (%) (Auto) , Differential Total Cells Counted 100, Neutrophils % ( Manual) 67, Lymphocytes % (Manual) 18L, Monocytes % (Manual) 11H, Eosinophils % (Manual) 2, Basophils % (Manual) 0, Band Neutrophils 2, Platelet Estimate DecreasedL, Platelet Morphology Normal, Anisocytosis 1+, Sodium Level 133L, Potassium Level 3.4L, Chloride Level 103, Carbon Dioxide Level 23, Anion Gap 7, Blood Urea Nitrogen 18, Creatinine 1.0, Estimat Glomerular Filtration Rate , Glucose Level 94, Calcium Level 7.2L, Phosphorus Level 2.2L, Troponin I 0.017 Height (Feet): 5 Height (Inches): 7.00 Weight (Pounds): 143 General Appearance: no apparent distress, alert EENT: normal ENT inspection Neck: normal alignment Cardiovascular: normal rate, regular rhythm Respiratory/Chest: lungs clear, normal breath sounds Abdomen: non tender, soft Extremities: no edema Neurologic: relay tester II-XII grossly normal Edmar Gutiérrez MD May 21, 2019 14:20
--- NOTE | 2019-05-21 15:14 | Infectious Diseases Prog Note ---
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 , with H/O PCP pneumonia (3) CLL (chronic lymphocytic leukemia) Assessment & Plan: on rituxan monthly , follow up with oncology (4) Dehydration Assessment & Plan: continue IVF , monitor renal function Subjective Constitutional: Reports: no symptoms HEENT: Reports: no symptoms Respiratory: Reports: dry cough Breasts: Reports: no symptoms Cardiovascular: Reports: no symptoms Gastrointestinal/Abdominal: Reports: no symptoms Genitourinary: Reports: no symptoms Neurologic: Reports: no symptoms Psychiatric: Reports: no symptoms Skin: Reports: no symptoms Endocrine: Reports: no symptoms Hematologic: Reports: no symptoms Musculoskeletal: Reports: no symptoms Allergies: Coded Allergies: No Known Allergies (Unverified , 05/18/19) Objective Vital Signs Last 24 Hour Vital Signs Date Time Temp Pulse Resp B/P (MAP) Pulse Ox O2 Delivery O2 Flow Rate FiO2 05/21/19 12:00 97.2 94 18 115/73 (87) 95 05/21/19 12:00 97.2 82 20 92/64 (73) 95 05/21/19 12:00 84 05/21/19 09:00 84 80 83 05/21/19 08:05 Room Air 05/21/19 08:00 87 05/21/19 08:00 97.5 81 16 103/59 (74) 98 05/21/19 04:00 97.3 94 18 113/73 (86) 95 05/21/19 04:00 84 05/21/19 00:00 98.0 93 18 111/69 (83) 95 05/21/19 00:00 90 05/20/19 21:00 Room Air 05/20/19 20:00 98.9 93 18 100/62 (75) 97 05/20/19 20:00 102 05/20/19 16:00 84 05/20/19 16:00 98.1 86 18 116/72 (87) 95 Height (Feet): 5 Height (Inches): 7.00 Weight (Pounds): 143 General Appearance: WD/WN, no acute distress HEENT: normocephalic, atraumatic, anicteric, mucous membranes moist, PERRL Respiratory/Chest: chest wall non-tender, no respiratory distress, no accessory muscle use, decreased breath sounds, crackles/rales Cardiovascular: normal peripheral pulses, normal rate, regular rhythm, no gallop/murmur, no JVD Abdomen: normal bowel sounds, soft, non tender, no organomegaly, non distended , no mass, no scars Extremities: no cyanosis, no clubbing Skin: no rash, no lesions, no ulcers Neurologic/Psychiatric: alert, oriented x 3, responsive Lymphatic: no neck adenopathy, no groin adenopathy Musculoskeletal: normal muscle bulk, no effusion Microbiology Date/Time Source Procedure Growth Status 05/18/19 15:55 Blood Blood Culture - Preliminary NO GROWTH AFTER 48 HOURS Resulted 05/18/19 15:35 Blood Blood Culture - Preliminary NO GROWTH AFTER 48 HOURS Resulted 05/18/19 21:40 Nasal Nares MRSA Culture - Final NO METHICILLIN RESISTANT STAPH AUREUS... Complete 05/18/19 15:50 Nasal Nares - Final Complete 05/18/19 15:50 Nasal Nares - Final Complete 05/19/19 06:15 Urine,Clean Catch Urine Culture - Final Mixed Gram Positive Organism Complete 05/18/19 21:40 Rectum - Final NO CARBAPENEM-RESISTANT ENTEROBACTERI... Complete 05/18/19 21:40 Rectum VRE Culture - Final Enterococcus Faecalis - Vre Complete Laboratory Tests Test 05/21/19 06:14 White Blood Count 3.4 K/UL (4.8-10.8) L Red Blood Count 3.53 M/UL (4.70-6.10) L Hemoglobin 10.3 G/DL (14.2-18.0) L Hematocrit 30.0 % (42.0-52.0) L Mean Corpuscular Volume 85 FL (80-99) Mean Corpuscular Hemoglobin 29.2 PG (27.0-31.0) Mean Corpuscular Hemoglobin Concent 34.3 G/DL (32.0-36.0) Red Cell Distribution Width 15.8 % (11.6-14.8) H Platelet Count 104 K/UL (150-450) L Mean Platelet Volume 6.5 FL (6.5-10.1) Neutrophils (%) (Auto) % (45.0-75.0) Lymphocytes (%) (Auto) % (20.0-45.0) Monocytes (%) (Auto) % (1.0-10.0) Eosinophils (%) (Auto) % (0.0-3.0) Basophils (%) (Auto) % (0.0-2.0) Differential Total Cells Counted 100 Neutrophils % (Manual) 67 % (45-75) Lymphocytes % (Manual) 18 % (20-45) L Monocytes % (Manual) 11 % (1-10) H Eosinophils % (Manual) 2 % (0-3) Basophils % (Manual) 0 % (0-2) Band Neutrophils 2 % (0-8) Platelet Estimate Decreased L Platelet Morphology Normal Anisocytosis 1+ Sodium Level 133 MMOL/L (136-145) L Potassium Level 3.4 MMOL/L (3.5-5.1) L Chloride Level 103 MMOL/L (98-107) Carbon Dioxide Level 23 MMOL/L (21-32) Anion Gap 7 mmol/L (5-15) Blood Urea Nitrogen 18 mg/dL (7-18) Creatinine 1.0 MG/DL (0.55-1.30) Estimat Glomerular Filtration Rate mL/min (>60) Glucose Level 94 MG/DL (74-106) Calcium Level 7.2 MG/DL (8.5-10.1) L Phosphorus Level 2.2 MG/DL (2.5-4.9) L Troponin I 0.017 ng/mL (0.000-0.056) Current Medications Medications (Trade) Dose Ordered Sig/Tony Route PRN Reason Start Time Stop Time Status Last Admin Dose Admin Aspirin (Ecotrin) 81 mg DAILY ORAL 05/19/19 09:00 06/18/19 08:59 05/21/19 09:03 Azithromycin 500 mg/Dextrose 275 ml @ 275 mls/hr Q24HRS IV 05/19/19 17:00 05/25/19 17:59 05/20/19 17:02 Cefepime HCl 2 gm/ Dextrose 55 ml @ 110 mls/hr EVERY 12 HOURS IVPB 05/19/19 16:00 05/26/19 15:59 05/21/19 09:02 Docusate Sodium (Colace) 100 mg BEDTIME ORAL 05/19/19 21:00 06/18/19 20:59 05/20/19 21:21 Famotidine (Pepcid) 20 mg DAILY ORAL 05/19/19 09:00 06/18/19 08:59 05/21/19 09:03 Finasteride (Proscar) 5 mg DAILY ORAL 05/19/19 09:00 06/18/19 08:59 05/21/19 09:03 Magnesium Oxide (Mag-Ox 400mg) 400 mg THREE TIMES A DAY ORAL 05/20/19 09:00 06/19/19 08:59 05/21/19 12:17 Ondansetron HCl (Zofran) 4 mg Q6H PRN IVP Nausea & Vomiting 05/19/19 03:15 06/18/19 03:14 Phosphorus (Phospha 250 Neutral) 250 mg THREE TIMES A DAY ORAL 05/20/19 18:15 06/19/19 18:14 05/21/19 12:16 Potassium Chloride (K-Dur) 40 meq ONCE ORAL 05/21/19 14:29 05/21/19 15:30 Sodium Bicarbonate (NaHCO3) 650 mg BID ORAL 05/19/19 09:00 06/18/19 08:59 05/21/19 09:03 Tamsulosin HCl (Flomax) 0.4 mg DAILY ORAL 05/19/19 09:00 06/18/19 08:59 05/21/19 09:03 Tramadol HCl (Ultram) 50 mg Q6H PRN ORAL for pain 05/19/19 02:30 05/26/19 02:29 Trimethoprim/ Sulfamethoxazole (Bactrim Single Strength) 1 tab DAILY ORAL 05/19/19 09:00 05/26/19 08:59 05/21/19 09:[address] M.D. May 21, 2019 15:14
[2019-05-21 16:00] VITALS: BP 103/65
[2019-05-21] MEDS: Azithromycin 250mg tab ORAL SCH (16:00)
--- NOTE | 2019-05-21 19:40 | NUR ---
NURSE NOTES: Received patient from Jm [place]. Patient in bed, on room air, no signs of respiratory distress. Bed in low position, locked, bed alarm on, call light within reach. Left forearm 24 gauge iv intact, patent.
[2019-05-21 20:00] VITALS: BP 95/58
[2019-05-21] MEDS: Docusate 100mg cap ORAL SCH (21:26)
[2019-05-22] VITALS (9 sets, daily range): BP systolic 75–100; BP diastolic 50–67
--- NOTE | 2019-05-22 04:44 | NUR ---
NURSE NOTES: Left message with Dr. Lezama regarding patient's fluctuating low bp throughout the shift.
--- NOTE | 2019-05-22 06:01 | NUR ---
NURSE NOTES: Received call back from covering MD DR. Mitchell, notified him of patient's condition and low BP. Received orders for IVF and daily labs.
--- NOTE | 2019-05-22 07:42 | NUR ---
NURSE NOTES: Received report from CAITY Solis. Patient in bed resting, no active s/s cardiac, respiratory distress noticed at this time. Patient on room air, SR with HR 80. Endorsed patient was running low blood pressure, MD made aware, IVF running as prescribed rate. IV on left FA 24G, asymptomatic, patent, intact. Bed in lowest position, side rails upx3, call light within reach, bed alarm on. Will continue to monitor.
[2019-05-22 07:45] LABS: ANION GAP 4 mmol/L (5-15); BLOOD UREA NITROGEN 15 mg/dL (7-18); CALCIUM 7.7 MG/DL (8.5-10.1); CARBON DIOXIDE 24 MMOL/L (21-32); CHLORIDE 104 MMOL/L (98-107); CREATININE 1.1 MG/DL (0.55-1.30); POTASSIUM 4.1 MMOL/L (3.5-5.1); SODIUM 131 MMOL/L (136-145)
[2019-05-22 07:49] LABS: BASOPHILS % (AUTO) 1.7 % (0.0-2.0); EOSINOPHILS % (AUTO) 0.6 % (0.0-3.0); HEMATOCRIT 28.8 % (42.0-52.0); HEMOGLOBIN 9.8 G/DL (14.2-18.0); LYMPHOCYTES % (AUTO) 13.9 % (20.0-45.0); MEAN CORPUSCULAR VOLUME 85 FL (80-99); MONOCYTES % (AUTO) 13.1 % (1.0-10.0); NEUTROPHILS % (AUTO) 70.8 % (45.0-75.0); PLATELET COUNT 114 K/UL (150-450); RED BLOOD COUNT 3.38 M/UL (4.70-6.10); RED CELL DISTRIBUTION WIDTH 15.9 % (11.6-14.8); WHITE BLOOD COUNT 3.6 K/UL (4.8-10.8)
--- NOTE | 2019-05-22 08:50 | NUR ---
PT EVALUATION NOTE Patient seen for initial evaluation, see complete evaluation for details. Patient presents with generalized weakness and impaired balance which affects patient's ability to perform mobility tasks safely. Patient required min assist for bed mobility and CGA for transfers with FWW. Patient ambulated 30 ft with FWW and CGA, slightly unsteady during ambulation. Patient will benefit from skilled inpatient PT intervention to address strength, safety and balance for improved level of functional mobility. Recommend home with assistance vs SNF once medically cleared by MD as patient lives alone and is a fall risk. Patient has a SPC and FWW at home, further DME needs to be determined. Addendum: 05/22/19 at 1255 by ELLIOTT HERNANDEZ PT Amended: Links added.
[2019-05-22] MEDS: Cefepime HCl 2 GM in D5W 55 ML IVPB SCH ×2 (09:08→20:44)
[2019-05-22] MEDS: Azithromycin 250mg tab ORAL SCH (09:09)
[2019-05-22] MEDS: Tamsulosin 0.4mg cap ORAL SCH (09:09)
[2019-05-22] MEDS: Phospha 250 Neutral tab ORAL SCH ×3 (09:09→17:24)
[2019-05-22] MEDS: Bactrim SS Tab ORAL SCH (09:09)
[2019-05-22] MEDS: Magnesium Oxide 400mg tab ORAL SCH ×3 (09:09→17:24)
[2019-05-22] MEDS: Aspirin EC 81mg tab ORAL SCH (09:09)
[2019-05-22] MEDS: Sodium Bicarbonate 650mg Tab ORAL SCH ×2 (09:09→17:24)
--- NOTE | 2019-05-22 12:10 | NUR ---
[facility]NA[facility] NURSING SI: DEHYDRATION,ELEVATED TROPONIN T. 97.9 HR 83 RR 18 B/P 95/58 NA 131 TROP 0.029 IS: CEFEPIME IV IVF NS @ 100ML/HR BACTRIM PO AZITHROMAX PO TELE STATUS
--- NOTE | 2019-05-22 18:59 | Nephrology Progress Note ---
Assessment/Plan Problem List: (1) Hypokalemia (2) Hypomagnesemia (3) Hypophosphatemia (4) Electrolyte abnormality (5) Dehydration (6) Pneumonia (7) CLL (chronic lymphocytic leukemia) Plan phos still low 2.5, replace, abnormal lab could be from meds for CLL K better, hydration good, stop iv fluid Subjective Constitutional: Reports: weakness HEENT: Reports: no symptoms Genitourinary: Reports: no symptoms Neurologic/Psychiatric: Reports: no symptoms Objective Objective Last 24 Hour Vital Signs Date Time Temp Pulse Resp B/P (MAP) Pulse Ox O2 Delivery O2 Flow Rate FiO2 05/22/19 16:00 96.8 76 18 97/67 (77) 97 05/22/19 16:00 79 05/22/19 12:00 76 05/22/19 12:00 96.8 76 18 100/66 (77) 98 05/22/19 09:00 87 95 111 05/22/19 09:00 Room Air 05/22/19 08:00 97.9 83 18 98/62 (74) 95 05/22/19 08:00 87 05/22/19 04:32 80 95/58 (70) 05/22/19 04:01 98.0 82 20 86/54 (65) 95 05/22/19 04:00 98.0 82 20 75/50 (58) 95 05/22/19 04:00 82 05/22/19 01:50 80 99/50 (66) 05/22/19 00:00 88 05/22/19 00:00 98.3 84 19 86/56 (66) 93 05/21/19 23:30 92 98 113 05/21/19 21:00 Room Air 05/21/19 20:00 89 05/21/19 20:00 98.2 85 18 95/58 (70) 98 Intake and Output 05/21/19 05/22/19 18:59 06:59 Intake Total 300 ml 55 ml Balance 300 ml 55 ml Intake Oral 300 ml IV Total 55 ml # Voids 1 Laboratory Tests 05/22/19 05:40: White Blood Count 3.6L, Red Blood Count 3.38L, Hemoglobin 9.8L, Hematocrit 28.8L , Mean Corpuscular Volume 85, Mean Corpuscular Hemoglobin 29.0, Mean Corpuscular Hemoglobin Concent 34.0, Red Cell Distribution Width 15.9H, Platelet Count 114L, Mean Platelet Volume 6.7, Neutrophils (%) (Auto) 70.8, Lymphocytes (%) (Auto) 13.9L, Monocytes (%) (Auto) 13.1H, Eosinophils (%) (Auto ) 0.6, Basophils (%) (Auto) 1.7, Sodium Level 131L, Potassium Level 4.1, Chloride Level 104, Carbon Dioxide Level 24, Anion Gap 4L, Blood Urea Nitrogen 15, Creatinine 1.1, Estimat Glomerular Filtration Rate , Glucose Level 104, Calcium Level 7.7L, Phosphorus Level 2.5, Troponin I 0.029 Height (Feet): 5 Height (Inches): 7.00 Weight (Pounds): 143 General Appearance: no apparent distress EENT: normal ENT inspection Neck: normal alignment Cardiovascular: regular rhythm Respiratory/Chest: lungs clear, normal breath sounds Abdomen: non tender, soft Extremities: no edema 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
--- NOTE | 2019-05-22 19:25 | NUR ---
HAND-OFF: Report given to CAITY Marshall.
--- NOTE | 2019-05-22 19:36 | Cardiology Progress Note ---
Assessment/Plan Assessment/Plan 1. Near syncopal episode. 2. Questionable pneumonia. 3. Benign prostatic hypertrophy with urinary retention. 4. History of recent pneumonia back in January of 2019. 5. Chronic kidney disease. 6. Chronic systolic heart failure. 7. Reported history of coronary artery disease. 8. Gastroesophageal reflux disease. 9. Chronic lymphocytic leukemia tele neg bp is on the lower side still check cortisol is on ivf tele neg near syncoep likely volume related abx per primary team Subjective ROS Limited/Unobtainable: Yes Objective Last 24 Hour Vital Signs Date Time Temp Pulse Resp B/P (MAP) Pulse Ox O2 Delivery O2 Flow Rate FiO2 05/22/19 16:00 96.8 76 18 97/67 (77) 97 05/22/19 16:00 79 05/22/19 12:00 76 05/22/19 12:00 96.8 76 18 100/66 (77) 98 05/22/19 09:00 87 95 111 05/22/19 09:00 Room Air 05/22/19 08:00 97.9 83 18 98/62 (74) 95 05/22/19 08:00 87 05/22/19 04:32 80 95/58 (70) 05/22/19 04:01 98.0 82 20 86/54 (65) 95 05/22/19 04:00 98.0 82 20 75/50 (58) 95 05/22/19 04:00 82 05/22/19 01:50 80 99/50 (66) 05/22/19 00:00 88 05/22/19 00:00 98.3 84 19 86/56 (66) 93 05/21/19 23:30 92 98 113 05/21/19 21:00 Room Air 05/21/19 20:00 89 05/21/19 20:00 98.2 85 18 95/58 (70) 98 General Appearance: no apparent distress, alert Intake and Output 05/21/19 05/22/19 18:59 06:59 Intake Total 300 ml 55 ml Balance 300 ml 55 ml Intake Oral 300 ml IV Total 55 ml # Voids 1 Laboratory Tests Test 05/22/19 05:40 White Blood Count 3.6 K/UL (4.8-10.8) L Red Blood Count 3.38 M/UL (4.70-6.10) L Hemoglobin 9.8 G/DL (14.2-18.0) L Hematocrit 28.8 % (42.0-52.0) L Mean Corpuscular Volume 85 FL (80-99) Mean Corpuscular Hemoglobin 29.0 PG (27.0-31.0) Mean Corpuscular Hemoglobin Concent 34.0 G/DL (32.0-36.0) Red Cell Distribution Width 15.9 % (11.6-14.8) H Platelet Count 114 K/UL (150-450) L Mean Platelet Volume 6.7 FL (6.5-10.1) Neutrophils (%) (Auto) 70.8 % (45.0-75.0) Lymphocytes (%) (Auto) 13.9 % (20.0-45.0) L Monocytes (%) (Auto) 13.1 % (1.0-10.0) H Eosinophils (%) (Auto) 0.6 % (0.0-3.0) Basophils (%) (Auto) 1.7 % (0.0-2.0) Sodium Level 131 MMOL/L (136-145) L Potassium Level 4.1 MMOL/L (3.5-5.1) Chloride Level 104 MMOL/L (98-107) Carbon Dioxide Level 24 MMOL/L (21-32) Anion Gap 4 mmol/L (5-15) L Blood Urea Nitrogen 15 mg/dL (7-18) Creatinine 1.1 MG/DL (0.55-1.30) Estimat Glomerular Filtration Rate mL/min (>60) Glucose Level 104 MG/DL (74-106) Calcium Level 7.7 MG/DL (8.5-10.1) L Phosphorus Level 2.5 MG/DL (2.5-4.9) Troponin I 0.029 ng/mL (0.000-0.056) Frank Alaniz MD May 22, 2019 19:36
--- NOTE | 2019-05-22 19:38 | Pulmonology Progress Note ---
Assessment/Plan Assessment/Plan Pulmonary Progress Note. 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 No loss of consciousness. No fall. No chest pain. No fevers or chills. No nausea, vomiting, diarrhea, or constipation. Laboratory evaluation was significant for baseline pancytopenia. ABG was 7.51/28/74/92/95, and troponin was negative initially and then 0.018. Urinalysis was unremarkable. Urine tox screen was unremarkable and the remainder of the laboratory workup was unremarkable except for mild transaminitis and elevated alkaline phosphatase. No new complaints CT confirms Pneumonia, [address] LN PAST MEDICAL HISTORY: 1. CLL. 2. CAD. 3. CKD. 4. GERD. 5. PCP pneumonia in the past. 6. BPH. 7. Chronic indwelling Mandujano catheter. 8. History of septic shock in the past with glabrata fungemia. 9. History of multiple UTIs in the past. ALLERGIES: No known drug allergies. MEDICATIONS: Prior to admission medications reviewed. Current medications reviewed. SOCIAL HISTORY: He was at rehabilitation center until recently, now he is at home. No tobacco, alcohol, or drug use. FAMILY HISTORY: Noncontributory. REVIEW OF SYSTEMS: Negative on history of present illness. PHYSICAL EXAMINATION: VITAL SIGNS NOTED: GENERAL: He is well-developed, well-nourished, elderly male, in no acute distress. Awake, alert, and oriented x3. HEENT: Normocephalic and atraumatic. Oropharynx is clear with moist mucous membranes. NECK: Supple without lymphadenopathy or jugular venous distention. CHEST: Clear to auscultation bilaterally. HEART: Regular rate and rhythm. ABDOMEN: Soft, nontender, and nondistended. EXTREMITIES: No cyanosis, clubbing, or edema ANCILLARY DATA: Sodium 134, potassium 3.2, chloride 100, bicarb 20, BUN 22, creatinine 1.2, glucose 132. Lactic acid initially 2.1 and then 0.8, calcium 8, phosphorus 1.1, magnesium 1.6. Total bilirubin 1.2, direct bilirubin 0.7, AST 81, alkaline phosphatase 363. CK 14. Troponin 0.00 and then 0.018. BNP 2933. Total protein 4.6, albumin 1.9. Urinalysis negative. Urine tox negative. Alcohol negative. Rapid flu negative. Chest x-ray in the emergency department shows some mild interstitial prominence ASSESSMENT: The patient is an 83-year-old male with a history of CAD, CKD, GERD, CLL, prior PCP pneumonia, BPH, urinary Mandujano, protein-calorie malnutrition, deconditioning, presenting with a presyncopal episode and concern initially for sepsis, now hemodynamically stable. 1. Presyncopal episode, possibly vasovagal versus dehydration. 2. Lactic acidosis, resolved. 3. Possible underlying infectious process, though no obvious source. 4. Abnormal LFTs. 5. History of PCP pneumonia in the past. 6. CAD. 7. CKD. 8. GERD. 9. CLL. 10. Pancytopenia. PLAN: 1. Continue telemetry. 2. Check echo, CT brain, carotid duplex. 3. Monitor volumes and renal function, maintenance IV fluids, replete electrolytes, renal evaluation. 4. Continue Rocephin and azithromycin for now (day 2), follow up cultures, though I doubt the patient is infected and with likely curtailed in next 1 to 2 days, Infectious Diseases evaluation. 5. Monitor LFTs, check lipase, check abdominal ultrasound. 6. Continue Bactrim for PCP prophylaxis. 7. Continue prior to admission medications. 8. DVT prophylaxis, SCDs. 9. The patient is a Full Code. 10. Continue to discuss goals of care. 11. PT/OT. Subjective ROS Limited/Unobtainable: No Allergies: Coded Allergies: No Known Allergies (Unverified , 05/18/19) Objective Last 24 Hour Vital Signs Date Time Temp Pulse Resp B/P (MAP) Pulse Ox O2 Delivery O2 Flow Rate FiO2 05/22/19 16:00 96.8 76 18 97/67 (77) 97 05/22/19 16:00 79 05/22/19 12:00 76 05/22/19 12:00 96.8 76 18 100/66 (77) 98 05/22/19 09:00 87 95 111 05/22/19 09:00 Room Air 05/22/19 08:00 97.9 83 18 98/62 (74) 95 05/22/19 08:00 87 05/22/19 04:32 80 95/58 (70) 05/22/19 04:01 98.0 82 20 86/54 (65) 95 05/22/19 04:00 98.0 82 20 75/50 (58) 95 05/22/19 04:00 82 05/22/19 01:50 80 99/50 (66) 05/22/19 00:00 88 05/22/19 00:00 98.3 84 19 86/56 (66) 93 05/21/19 23:30 92 98 113 05/21/19 21:00 Room Air 05/21/19 20:00 89 05/21/19 20:00 98.2 85 18 95/58 (70) 98 Intake and Output 05/21/19 05/22/19 18:59 06:59 Intake Total 300 ml 55 ml Balance 300 ml 55 ml Intake Oral 300 ml IV Total 55 ml # Voids 1 Laboratory Tests 05/22/19 05:40: White Blood Count 3.6L, Red Blood Count 3.38L, Hemoglobin 9.8L, Hematocrit 28.8L , Mean Corpuscular Volume 85, Mean Corpuscular Hemoglobin 29.0, Mean Corpuscular Hemoglobin Concent 34.0, Red Cell Distribution Width 15.9H, Platelet Count 114L, Mean Platelet Volume 6.7, Neutrophils (%) (Auto) 70.8, Lymphocytes (%) (Auto) 13.9L, Monocytes (%) (Auto) 13.1H, Eosinophils (%) (Auto ) 0.6, Basophils (%) (Auto) 1.7, Sodium Level 131L, Potassium Level 4.1, Chloride Level 104, Carbon Dioxide Level 24, Anion Gap 4L, Blood Urea Nitrogen 15, Creatinine 1.1, Estimat Glomerular Filtration Rate , Glucose Level 104, Calcium Level 7.7L, Phosphorus Level 2.5, Troponin I 0.029 Current Medications Medications (Trade) Dose Ordered Sig/Tony Route PRN Reason Start Time Stop Time Status Last Admin Dose Admin Aspirin (Ecotrin) 81 mg DAILY ORAL 05/19/19 09:00 06/18/19 08:59 05/22/19 09:09 Azithromycin (Zithromax) 500 mg DAILY ORAL 05/21/19 16:00 05/25/19 08:59 05/22/19 09:09 Cefepime HCl 2 gm/ Dextrose 55 ml @ 110 mls/hr EVERY 12 HOURS IVPB 05/19/19 16:00 05/26/19 15:59 05/22/19 09:08 Docusate Sodium (Colace) 100 mg BEDTIME ORAL 05/19/19 21:00 06/18/19 20:59 05/21/19 21:26 Famotidine (Pepcid) 20 mg DAILY ORAL 05/19/19 09:00 06/18/19 08:59 05/22/19 09:09 Finasteride (Proscar) 5 mg DAILY ORAL 05/19/19 09:00 06/18/19 08:59 05/22/19 09:09 Magnesium Oxide (Mag-Ox 400mg) 400 mg THREE TIMES A DAY ORAL 05/20/19 09:00 06/19/19 08:59 05/22/19 17:24 Ondansetron HCl (Zofran) 4 mg Q6H PRN IVP Nausea & Vomiting 05/19/19 03:15 06/18/19 03:14 Phosphorus (Phospha 250 Neutral) 250 mg THREE TIMES A DAY ORAL 05/20/19 18:15 06/19/19 18:14 05/22/19 17:24 Sodium Bicarbonate (NaHCO3) 650 mg BID ORAL 05/19/19 09:00 06/18/19 08:59 05/22/19 17:24 Tamsulosin HCl (Flomax) 0.4 mg DAILY ORAL 05/19/19 09:00 06/18/19 08:59 05/22/19 09:09 Tramadol HCl (Ultram) 50 mg Q6H PRN ORAL for pain 05/19/19 02:30 05/26/19 02:29 Trimethoprim/ Sulfamethoxazole (Bactrim Single Strength) 1 tab DAILY ORAL 05/19/19 09:00 05/26/19 08:59 05/22/19 09:09 Anthony Mitchell MD May 22, 2019 19:38
--- NOTE | 2019-05-22 20:11 | Infectious Diseases Prog Note ---
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 , with H/O PCP pneumonia (3) CLL (chronic lymphocytic leukemia) Assessment & Plan: on rituxan monthly , follow up with oncology Subjective Constitutional: Reports: no symptoms HEENT: Reports: no symptoms Respiratory: Reports: dry cough Breasts: Reports: no symptoms Cardiovascular: Reports: no symptoms Gastrointestinal/Abdominal: Reports: no symptoms Genitourinary: Reports: no symptoms Neurologic: Reports: no symptoms Psychiatric: Reports: no symptoms Skin: Reports: no symptoms Endocrine: Reports: no symptoms Hematologic: Reports: no symptoms Musculoskeletal: Reports: no symptoms Allergies: Coded Allergies: No Known Allergies (Unverified , 05/18/19) Objective Vital Signs Last 24 Hour Vital Signs Date Time Temp Pulse Resp B/P (MAP) Pulse Ox O2 Delivery O2 Flow Rate FiO2 05/22/19 16:00 96.8 76 18 97/67 (77) 97 05/22/19 16:00 79 05/22/19 12:00 76 05/22/19 12:00 96.8 76 18 100/66 (77) 98 05/22/19 09:00 87 95 111 05/22/19 09:00 Room Air 05/22/19 08:00 97.9 83 18 98/62 (74) 95 05/22/19 08:00 87 05/22/19 04:32 80 95/58 (70) 05/22/19 04:01 98.0 82 20 86/54 (65) 95 05/22/19 04:00 98.0 82 20 75/50 (58) 95 05/22/19 04:00 82 05/22/19 01:50 80 99/50 (66) 05/22/19 00:00 88 05/22/19 00:00 98.3 84 19 86/56 (66) 93 05/21/19 23:30 92 98 113 05/21/19 21:00 Room Air Height (Feet): 5 Height (Inches): 7.00 Weight (Pounds): 143 General Appearance: WD/WN, no acute distress HEENT: normocephalic, atraumatic, anicteric, mucous membranes moist, PERRL Respiratory/Chest: chest wall non-tender, normal breath sounds, no respiratory distress, no accessory muscle use, decreased breath sounds Cardiovascular: normal peripheral pulses, normal rate, regular rhythm, no gallop/murmur, no JVD Abdomen: normal bowel sounds, soft, non tender, no organomegaly, non distended , no mass, no scars Genitourinary: normal external genitalia Extremities: no cyanosis, no clubbing Skin: no rash, no lesions, no ulcers 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, no motor/sensory deficits, alert, oriented x 3, responsive Lymphatic: no neck adenopathy, no groin adenopathy Musculoskeletal: normal muscle bulk, no effusion Laboratory Tests Test 05/22/19 05:40 White Blood Count 3.6 K/UL (4.8-10.8) L Red Blood Count 3.38 M/UL (4.70-6.10) L Hemoglobin 9.8 G/DL (14.2-18.0) L Hematocrit 28.8 % (42.0-52.0) L Mean Corpuscular Volume 85 FL (80-99) Mean Corpuscular Hemoglobin 29.0 PG (27.0-31.0) Mean Corpuscular Hemoglobin Concent 34.0 G/DL (32.0-36.0) Red Cell Distribution Width 15.9 % (11.6-14.8) H Platelet Count 114 K/UL (150-450) L Mean Platelet Volume 6.7 FL (6.5-10.1) Neutrophils (%) (Auto) 70.8 % (45.0-75.0) Lymphocytes (%) (Auto) 13.9 % (20.0-45.0) L Monocytes (%) (Auto) 13.1 % (1.0-10.0) H Eosinophils (%) (Auto) 0.6 % (0.0-3.0) Basophils (%) (Auto) 1.7 % (0.0-2.0) Sodium Level 131 MMOL/L (136-145) L Potassium Level 4.1 MMOL/L (3.5-5.1) Chloride Level 104 MMOL/L (98-107) Carbon Dioxide Level 24 MMOL/L (21-32) Anion Gap 4 mmol/L (5-15) L Blood Urea Nitrogen 15 mg/dL (7-18) Creatinine 1.1 MG/DL (0.55-1.30) Estimat Glomerular Filtration Rate mL/min (>60) Glucose Level 104 MG/DL (74-106) Calcium Level 7.7 MG/DL (8.5-10.1) L Phosphorus Level 2.5 MG/DL (2.5-4.9) Troponin I 0.029 ng/mL (0.000-0.056) Current Medications Medications (Trade) Dose Ordered Sig/Tony Route PRN Reason Start Time Stop Time Status Last Admin Dose Admin Aspirin (Ecotrin) 81 mg DAILY ORAL 05/19/19 09:00 06/18/19 08:59 05/22/19 09:09 Azithromycin (Zithromax) 500 mg DAILY ORAL 05/21/19 16:00 05/25/19 08:59 05/22/19 09:09 Cefepime HCl 2 gm/ Dextrose 55 ml @ 110 mls/hr EVERY 12 HOURS IVPB 05/19/19 16:00 05/26/19 15:59 05/22/19 09:08 Docusate Sodium (Colace) 100 mg BEDTIME ORAL 05/19/19 21:00 06/18/19 20:59 05/21/19 21:26 Famotidine (Pepcid) 20 mg DAILY ORAL 05/19/19 09:00 06/18/19 08:59 05/22/19 09:09 Finasteride (Proscar) 5 mg DAILY ORAL 05/19/19 09:00 06/18/19 08:59 05/22/19 09:09 Magnesium Oxide (Mag-Ox 400mg) 400 mg THREE TIMES A DAY ORAL 05/20/19 09:00 06/19/19 08:59 05/22/19 17:24 Ondansetron HCl (Zofran) 4 mg Q6H PRN IVP Nausea & Vomiting 05/19/19 03:15 06/18/19 03:14 Phosphorus (Phospha 250 Neutral) 250 mg THREE TIMES A DAY ORAL 05/20/19 18:15 06/19/19 18:14 05/22/19 17:24 Sodium Bicarbonate (NaHCO3) 650 mg BID ORAL 05/19/19 09:00 06/18/19 08:59 05/22/19 17:24 Tamsulosin HCl (Flomax) 0.4 mg DAILY ORAL 05/19/19 09:00 06/18/19 08:59 05/22/19 09:09 Tramadol HCl (Ultram) 50 mg Q6H PRN ORAL for pain 05/19/19 02:30 05/26/19 02:29 Trimethoprim/ Sulfamethoxazole (Bactrim Single Strength) 1 tab DAILY ORAL 05/19/19 09:00 05/26/19 08:59 05/22/19 09:[address] M.D. May 22, 2019 20:11
[2019-05-22] MEDS: Docusate 100mg cap ORAL SCH (20:42)
[2019-05-23] VITALS: BP 95/66
[2019-05-23 04:00] VITALS: BP 95/100
--- NOTE | 2019-05-23 04:35 | NUR ---
NURSE NOTES: RECEIVED PT. FROM NURSE Beny ANGELO.PT. DENIES PAIN OR DISCOMFORT.VS.STABLE. TELE SR.
--- NOTE | 2019-05-23 06:48 | NUR ---
HAND-OFF: Report given to neftali Solo PT.resting in the bed denies discomfot..
--- NOTE | 2019-05-23 07:30 | NUR ---
NURSE NOTES: Received report from Farheen. Pt in bed awake and oriented and able to make needs known. pt Ethiopian speaking. No c/o pain. Bed in lowest position and locked. No acute distress noted. IV site in LFA 24G SL patent and asymptomatic. Bed in its lowest position and locked. Urinal at the bedside. Side rails x3 up for safety. Will continue to plan of care.
[2019-05-23 08:00] VITALS: BP 91/60
[2019-05-23] MEDS: Bactrim SS Tab ORAL SCH (08:57)
[2019-05-23] MEDS: Sodium Bicarbonate 650mg Tab ORAL SCH ×2 (08:57→17:53)
[2019-05-23] MEDS: Tamsulosin 0.4mg cap ORAL SCH (08:57)
[2019-05-23] MEDS: Cefepime HCl 2 GM in D5W 55 ML IVPB SCH (08:57)
[2019-05-23] MEDS: Magnesium Oxide 400mg tab ORAL SCH ×3 (08:57→17:53)
[2019-05-23] MEDS: Aspirin EC 81mg tab ORAL SCH (08:57)
[2019-05-23] MEDS: Phospha 250 Neutral tab ORAL SCH ×4 (08:57→20:53)
[2019-05-23] MEDS: Azithromycin 250mg tab ORAL SCH (08:57)
[2019-05-23 09:22] LABS: BASOPHILS % (AUTO) 2.2 % (0.0-2.0); EOSINOPHILS % (AUTO) 0.3 % (0.0-3.0); HEMATOCRIT 30.7 % (42.0-52.0); HEMOGLOBIN 10.4 G/DL (14.2-18.0); LYMPHOCYTES % (AUTO) 15.1 % (20.0-45.0); MEAN CORPUSCULAR VOLUME 86 FL (80-99); MONOCYTES % (AUTO) 10.4 % (1.0-10.0); NEUTROPHILS % (AUTO) 71.9 % (45.0-75.0); PLATELET COUNT 122 K/UL (150-450); RED BLOOD COUNT 3.55 M/UL (4.70-6.10); RED CELL DISTRIBUTION WIDTH 16.9 % (11.6-14.8); WHITE BLOOD COUNT 3.9 K/UL (4.8-10.8)
[2019-05-23 09:55] LABS: ANION GAP 11 mmol/L (5-15); BLOOD UREA NITROGEN 15 mg/dL (7-18); CALCIUM 7.8 MG/DL (8.5-10.1); CARBON DIOXIDE 23 MMOL/L (21-32); CHLORIDE 105 MMOL/L (98-107); CREATININE 1.1 MG/DL (0.55-1.30); POTASSIUM 3.7 MMOL/L (3.5-5.1); SODIUM 138 MMOL/L (136-145)
--- NOTE | 2019-05-23 11:03 | Nephrology Progress Note ---
Assessment/Plan Problem List: (1) Hypokalemia (2) Hypomagnesemia (3) Hypophosphatemia (4) Electrolyte abnormality (5) Dehydration (6) Pneumonia (7) CLL (chronic lymphocytic leukemia) Plan phos still low 2.2, replace orally abnormal lab could be from meds for CLL K better, hydration good, stop iv fluid watch po intake Subjective ROS Limited/Unobtainable: Yes Objective Objective Last 24 Hour Vital Signs Date Time Temp Pulse Resp B/P (MAP) Pulse Ox O2 Delivery O2 Flow Rate FiO2 05/23/19 09:00 Room Air 05/23/19 08:00 97.8 80 18 91/60 (70) 96 05/23/19 08:00 95 05/23/19 04:00 98.4 20 95/100 (98) 96 05/23/19 04:00 75 05/23/19 00:00 97.6 20 95/66 (76) 96 05/23/19 00:00 79 05/22/19 21:00 20 97 05/22/19 21:00 83 100 110 05/22/19 21:00 Room Air 05/22/19 20:00 97.9 82 20 97 05/22/19 20:00 98.0 82 20 95/62 (73) 97 82 05/22/19 20:00 76 05/22/19 16:00 96.8 76 18 97/67 (77) 97 05/22/19 16:00 79 05/22/19 12:00 76 05/22/19 12:00 96.8 76 18 100/66 (77) 98 Intake and Output 05/22/19 05/23/19 19:00 07:00 Intake Total 580 ml Output Total 1000 ml 1000 ml Balance -420 ml -1000 ml Intake Oral 480 ml IV Total 100 ml Output Urine Total 1000 ml 1000 ml # Voids 5 Laboratory Tests 05/23/19 08:22: White Blood Count 3.9L, Red Blood Count 3.55L, Hemoglobin 10.4L, Hematocrit 30.7L, Mean Corpuscular Volume 86, Mean Corpuscular Hemoglobin 29.3, Mean Corpuscular Hemoglobin Concent 33.9, Red Cell Distribution Width 16.9H, Platelet Count 122L, Mean Platelet Volume 6.3L, Neutrophils (%) (Auto) 71.9, Lymphocytes (%) (Auto) 15.1L, Monocytes (%) (Auto) 10.4H, Eosinophils (%) (Auto ) 0.3, Basophils (%) (Auto) 2.2H, Sodium Level 138, Potassium Level 3.7, Chloride Level 105, Carbon Dioxide Level 23, Anion Gap 11, Blood Urea Nitrogen 15, Creatinine 1.1, Estimat Glomerular Filtration Rate , Glucose Level 111H, Calcium Level 7.8L, Phosphorus Level 2.2L, Cortisol AM Sample [Pending] Height (Feet): 5 Height (Inches): 7.00 Weight (Pounds): 143 General Appearance: no apparent distress, alert EENT: normal ENT inspection Neck: normal alignment Cardiovascular: normal rate, regular rhythm Respiratory/Chest: lungs clear Abdomen: non tender Extremities: no edema Neurologic: no motor/sensory deficits Edmar Gutiérrez MD May 23, 2019 11:03
[2019-05-23 12:00] VITALS: BP 99/62
--- NOTE | 2019-05-23 13:17 | Pulmonology Progress Note ---
Assessment/Plan Assessment/Plan Pulmonary Progress Note. 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 No loss of consciousness. No fall. No chest pain. No fevers or chills. No nausea, vomiting, diarrhea, or constipation. Laboratory evaluation was significant for baseline pancytopenia. ABG was 7.51/28/74/92/95, and troponin was negative initially and then 0.018. Urinalysis was unremarkable. Urine tox screen was unremarkable and the remainder of the laboratory workup was unremarkable except for mild transaminitis and elevated alkaline phosphatase. No new complaints, Renal and Cardiology following CT confirms Pneumonia, Hilar LN PAST MEDICAL HISTORY: 1. CLL. 2. CAD. 3. CKD. 4. GERD. 5. PCP pneumonia in the past. 6. BPH. 7. Chronic indwelling Mandujano catheter. 8. History of septic shock in the past with glabrata fungemia. 9. History of multiple UTIs in the past. ALLERGIES: No known drug allergies. MEDICATIONS: Prior to admission medications reviewed. Current medications reviewed. SOCIAL HISTORY: He was at rehabilitation center until recently, now he is at home. No tobacco, alcohol, or drug use. FAMILY HISTORY: Noncontributory. REVIEW OF SYSTEMS: Negative on history of present illness. PHYSICAL EXAMINATION: VITAL SIGNS NOTED: GENERAL: He is well-developed, well-nourished, elderly male, in no acute distress. Awake, alert, and oriented x3. HEENT: Normocephalic and atraumatic. Oropharynx is clear with moist mucous membranes. NECK: Supple without lymphadenopathy or jugular venous distention. CHEST: Clear to auscultation bilaterally. HEART: Regular rate and rhythm. ABDOMEN: Soft, nontender, and nondistended. EXTREMITIES: No cyanosis, clubbing, or edema Labs noted Chest x-ray in the emergency department shows some mild interstitial prominence ASSESSMENT: The patient is an 83-year-old male with a history of CAD, CKD, GERD, CLL, prior PCP pneumonia, BPH, urinary Mandujano, protein-calorie malnutrition, deconditioning, presenting with a presyncopal episode and concern initially for sepsis, now hemodynamically stable. 1. Presyncopal episode, possibly vasovagal versus dehydration. 2. Lactic acidosis, resolved. 3. Possible underlying infectious process, though no obvious source. 4. Abnormal LFTs. 5. History of PCP pneumonia in the past. 6. CAD. 7. CKD. 8. GERD. 9. CLL. 10. Pancytopenia. PLAN: 1. Continue telemetry. 2. Check echo, CT brain, carotid duplex. 3. Monitor volumes and renal function, maintenance IV fluids, replete electrolytes, renal evaluation. 4. Continue Rocephin and azithromycin for now (day 2), follow up cultures, though I doubt the patient is infected and with likely curtailed in next 1 to 2 days, Infectious Diseases evaluation. 5. Monitor LFTs, check lipase, check abdominal ultrasound. 6. Continue Bactrim for PCP prophylaxis. 7. Continue prior to admission medications. 8. DVT prophylaxis, SCDs. 9. The patient is a Full Code. 10. Continue to discuss goals of care. 11. PT/OT. CT Chest: 1. Right infrahilar airspace consolidation suspicious for pneumonia. 2. Pulmonary edema with bilateral moderate pleural effusions. 3. Right infrahilar/subcarinal soft tissue mass which may represent reactive subcarinal lymphadenopathy; however, evaluation is limited in the absence of intravenous contrast and neoplastic etiologies such as metastatic disease, primary pulmonary neoplasm, or esophageal neoplasm cannot be excluded. 4. Right hilar lymphadenopathy, incompletely evaluated in the absence of intravenous contrast. 5. Ascending and arch aortic aneurysms. 6. Splenomegaly with hypodense splenic lesion which is nonspecific but may represent lymphocele or hemangioma. 7. Ascites. Subjective ROS Limited/Unobtainable: No Allergies: Coded Allergies: No Known Allergies (Unverified , 05/18/19) Objective Last 24 Hour Vital Signs Date Time Temp Pulse Resp B/P (MAP) Pulse Ox O2 Delivery O2 Flow Rate FiO2 05/23/19 09:00 Room Air 05/23/19 08:00 97.8 80 18 91/60 (70) 96 05/23/19 08:00 95 05/23/19 04:00 98.4 20 95/100 (98) 96 05/23/19 04:00 75 05/23/19 00:00 97.6 20 95/66 (76) 96 05/23/19 00:00 79 05/22/19 21:00 20 97 10/25/19 21:00 83 100 110 05/22/19 21:00 Room Air 05/22/19 20:00 97.9 82 20 97 05/22/19 20:00 98.0 82 20 95/62 (73) 97 82 05/22/19 20:00 76 05/22/19 16:00 96.8 76 18 97/67 (77) 97 05/22/19 16:00 79 Intake and Output 05/22/19 05/23/19 19:00 07:00 Intake Total 580 ml Output Total 1000 ml 1000 ml Balance -420 ml -1000 ml Intake Oral 480 ml IV Total 100 ml Output Urine Total 1000 ml 1000 ml # Voids 5 Laboratory Tests 05/23/19 08:22: White Blood Count 3.9L, Red Blood Count 3.55L, Hemoglobin 10.4L, Hematocrit 30.7L, Mean Corpuscular Volume 86, Mean Corpuscular Hemoglobin 29.3, Mean Corpuscular Hemoglobin Concent 33.9, Red Cell Distribution Width 16.9H, Platelet Count 122L, Mean Platelet Volume 6.3L, Neutrophils (%) (Auto) 71.9, Lymphocytes (%) (Auto) 15.1L, Monocytes (%) (Auto) 10.4H, Eosinophils (%) (Auto ) 0.3, Basophils (%) (Auto) 2.2H, Sodium Level 138, Potassium Level 3.7, Chloride Level 105, Carbon Dioxide Level 23, Anion Gap 11, Blood Urea Nitrogen 15, Creatinine 1.1, Estimat Glomerular Filtration Rate , Glucose Level 111H, Calcium Level 7.8L, Phosphorus Level 2.2L, Cortisol AM Sample [Pending] Current Medications Medications (Trade) Dose Ordered Sig/Tony Route PRN Reason Start Time Stop Time Status Last Admin Dose Admin Aspirin (Ecotrin) 81 mg DAILY ORAL 05/19/19 09:00 06/18/19 08:59 05/23/19 08:57 Azithromycin (Zithromax) 500 mg DAILY ORAL 05/21/19 16:00 05/25/19 08:59 05/23/19 08:57 Cefepime HCl 2 gm/ Dextrose 55 ml @ 110 mls/hr EVERY 12 HOURS IVPB 05/19/19 16:00 05/26/19 15:59 05/23/19 08:57 Docusate Sodium (Colace) 100 mg BEDTIME ORAL 05/19/19 21:00 06/18/19 20:59 05/22/19 20:42 Famotidine (Pepcid) 20 mg DAILY ORAL 05/19/19 09:00 06/18/19 08:59 05/23/19 08:57 Finasteride (Proscar) 5 mg DAILY ORAL 05/19/19 09:00 06/18/19 08:59 05/23/19 08:57 Magnesium Oxide (Mag-Ox 400mg) 400 mg THREE TIMES A DAY ORAL 05/20/19 09:00 06/19/19 08:59 05/23/19 13:13 Ondansetron HCl (Zofran) 4 mg Q6H PRN IVP Nausea & Vomiting 05/19/19 03:15 06/18/19 03:14 Phosphorus (Phospha 250 Neutral) 250 mg QID ORAL 05/23/19 13:00 06/22/19 12:59 05/23/19 13:13 Sodium Bicarbonate (NaHCO3) 650 mg BID ORAL 05/19/19 09:00 06/18/19 08:59 05/23/19 08:57 Tamsulosin HCl (Flomax) 0.4 mg DAILY ORAL 05/19/19 09:00 06/18/19 08:59 05/23/19 08:57 Tramadol HCl (Ultram) 50 mg Q6H PRN ORAL for pain 05/19/19 02:30 05/26/19 02:29 Trimethoprim/ Sulfamethoxazole (Bactrim Single Strength) 1 tab DAILY ORAL 05/19/19 09:00 05/26/19 08:59 05/23/19 08:57 Anthony Mitchell MD May 23, 2019 13:17
--- NOTE | 2019-05-23 14:47 | Infectious Diseases Prog Note ---
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 , with H/O PCP pneumonia (3) CLL (chronic lymphocytic leukemia) Assessment & Plan: on rituxan monthly , follow up with oncology (4) Weakness Assessment & Plan: PT/OT eval Subjective Constitutional: Reports: no symptoms HEENT: Reports: no symptoms Respiratory: Reports: no symptoms, dry cough Breasts: Reports: no symptoms Cardiovascular: Reports: no symptoms Gastrointestinal/Abdominal: Reports: no symptoms Genitourinary: Reports: no symptoms Neurologic: Reports: weakness Psychiatric: Reports: no symptoms Skin: Reports: no symptoms Endocrine: Reports: no symptoms Hematologic: Reports: no symptoms Musculoskeletal: Reports: no symptoms Allergies: Coded Allergies: No Known Allergies (Unverified , 05/18/19) Objective Vital Signs Last 24 Hour Vital Signs Date Time Temp Pulse Resp B/P (MAP) Pulse Ox O2 Delivery O2 Flow Rate FiO2 05/23/19 09:00 Room Air 05/23/19 08:00 97.8 80 18 91/60 (70) 96 05/23/19 08:00 95 05/23/19 04:00 98.4 20 95/100 (98) 96 05/23/19 04:00 75 05/23/19 00:00 97.6 20 95/66 (76) 96 05/23/19 00:00 79 05/22/19 21:00 20 97 05/22/19 21:00 83 100 110 05/22/19 21:00 Room Air 05/22/19 20:00 97.9 82 20 97 05/22/19 20:00 98.0 82 20 95/62 (73) 97 82 05/22/19 20:00 76 05/22/19 16:00 96.8 76 18 97/67 (77) 97 05/22/19 16:00 79 Height (Feet): 5 Height (Inches): 7.00 Weight (Pounds): 143 General Appearance: WD/WN, no acute distress HEENT: normocephalic, atraumatic, anicteric, mucous membranes moist, PERRL, EOMI, pharynx normal, supple, no JVD Respiratory/Chest: chest wall non-tender, lungs clear, normal breath sounds, no respiratory distress, no accessory muscle use Cardiovascular: normal peripheral pulses, normal rate, regular rhythm, no gallop/murmur, no JVD Abdomen: normal bowel sounds, soft, non tender, no organomegaly, non distended , no mass, no scars Genitourinary: normal external genitalia Extremities: no cyanosis, no clubbing Skin: no rash, no lesions, no ulcers 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, no motor/sensory deficits, alert, oriented x 3, responsive Lymphatic: no neck adenopathy, no groin adenopathy Musculoskeletal: normal muscle bulk, no effusion Laboratory Tests Test 05/23/19 08:22 White Blood Count 3.9 K/UL (4.8-10.8) L Red Blood Count 3.55 M/UL (4.70-6.10) L Hemoglobin 10.4 G/DL (14.2-18.0) L Hematocrit 30.7 % (42.0-52.0) L Mean Corpuscular Volume 86 FL (80-99) Mean Corpuscular Hemoglobin 29.3 PG (27.0-31.0) Mean Corpuscular Hemoglobin Concent 33.9 G/DL (32.0-36.0) Red Cell Distribution Width 16.9 % (11.6-14.8) H Platelet Count 122 K/UL (150-450) L Mean Platelet Volume 6.3 FL (6.5-10.1) L Neutrophils (%) (Auto) 71.9 % (45.0-75.0) Lymphocytes (%) (Auto) 15.1 % (20.0-45.0) L Monocytes (%) (Auto) 10.4 % (1.0-10.0) H Eosinophils (%) (Auto) 0.3 % (0.0-3.0) Basophils (%) (Auto) 2.2 % (0.0-2.0) H Sodium Level 138 MMOL/L (136-145) Potassium Level 3.7 MMOL/L (3.5-5.1) Chloride Level 105 MMOL/L (98-107) Carbon Dioxide Level 23 MMOL/L (21-32) Anion Gap 11 mmol/L (5-15) Blood Urea Nitrogen 15 mg/dL (7-18) Creatinine 1.1 MG/DL (0.55-1.30) Estimat Glomerular Filtration Rate mL/min (>60) Glucose Level 111 MG/DL (74-106) H Calcium Level 7.8 MG/DL (8.5-10.1) L Phosphorus Level 2.2 MG/DL (2.5-4.9) L Cortisol AM Sample Pending Current Medications Medications (Trade) Dose Ordered Sig/Tony Route PRN Reason Start Time Stop Time Status Last Admin Dose Admin Aspirin (Ecotrin) 81 mg DAILY ORAL 05/19/19 09:00 06/18/19 08:59 05/23/19 08:57 Azithromycin (Zithromax) 500 mg DAILY ORAL 05/21/19 16:00 05/25/19 08:59 05/23/19 08:57 Cefepime HCl 2 gm/ Dextrose 55 ml @ 110 mls/hr DAILY IVPB 05/24/19 09:00 05/26/19 11:00 Docusate Sodium (Colace) 100 mg BEDTIME ORAL 05/19/19 21:00 06/18/19 20:59 05/22/19 20:42 Famotidine (Pepcid) 20 mg DAILY ORAL 05/19/19 09:00 06/18/19 08:59 05/23/19 08:57 Finasteride (Proscar) 5 mg DAILY ORAL 05/19/19 09:00 06/18/19 08:59 05/23/19 08:57 Magnesium Oxide (Mag-Ox 400mg) 400 mg THREE TIMES A DAY ORAL 05/20/19 09:00 06/19/19 08:59 05/23/19 13:13 Ondansetron HCl (Zofran) 4 mg Q6H PRN IVP Nausea & Vomiting 05/19/19 03:15 06/18/19 03:14 Phosphorus (Phospha 250 Neutral) 250 mg QID ORAL 05/23/19 13:00 06/22/19 12:59 05/23/19 13:13 Sodium Bicarbonate (NaHCO3) 650 mg BID ORAL 05/19/19 09:00 06/18/19 08:59 05/23/19 08:57 Tamsulosin HCl (Flomax) 0.4 mg DAILY ORAL 05/19/19 09:00 06/18/19 08:59 05/23/19 08:57 Tramadol HCl (Ultram) 50 mg Q6H PRN ORAL for pain 05/19/19 02:30 05/26/19 02:29 Trimethoprim/ Sulfamethoxazole (Bactrim Single Strength) 1 tab DAILY ORAL 05/19/19 09:00 05/26/19 08:59 05/23/19 08:[address] M.D. May 23, 2019 14:47
[2019-05-23 15:51] VITALS: BP 96/65
[2019-05-23] MEDS ORDERED: NS 500ML ONE (16:28)
[2019-05-23] MEDS ORDERED: NS 275ml ONE (16:28)
--- NOTE | 2019-05-23 19:20 | NUR ---
HAND-OFF: Report given to Will CAROL[place]. Pt remains stable.
[2019-05-23 20:00] VITALS: BP 101/66
--- NOTE | 2019-05-23 20:30 | NUR ---
NURSE NOTES: Received patient from Min RN. Patient in bed, on room air, no s/s of respiratory distress. Bed in low position, locked, bed alarm on, call light with reach.
[2019-05-23] MEDS: Docusate 100mg cap ORAL SCH (20:53)
--- NOTE | 2019-05-23 22:40 | Cardiology Progress Note ---
Assessment/Plan Assessment/Plan The patient is stable from cardiac standpoint, his work up was negative Subjective Subjective The patient is resting in his bed. he denies chest pain, has mild weakness Objective Last 24 Hour Vital Signs Date Time Temp Pulse Resp B/P (MAP) Pulse Ox O2 Delivery O2 Flow Rate FiO2 05/23/19 16:00 82 05/23/19 15:51 97.8 79 18 96/65 (75) 95 05/23/19 12:00 98.2 82 18 99/62 (74) 96 05/23/19 12:00 83 05/23/19 09:00 88 84 83 05/23/19 09:00 Room Air 05/23/19 08:00 97.8 80 18 91/60 (70) 96 05/23/19 08:00 95 05/23/19 04:00 98.4 20 95/100 (98) 96 05/23/19 04:00 75 05/23/19 00:00 97.6 20 95/66 (76) 96 05/23/19 00:00 79 General Appearance: no apparent distress EENT: normal ENT inspection Neck: no JVD Rhythm: SB, PVCs Cardiovascular: regular rhythm, arrhythmia Respiratory/Chest: lungs clear Extremities: non-tender Intake and Output 05/22/19 05/23/19 18:59 06:59 Intake Total 580 ml Output Total 1000 ml 1000 ml Balance -420 ml -1000 ml Intake Oral 480 ml IV Total 100 ml Output Urine Total 1000 ml 1000 ml # Voids 5 Laboratory Tests Test 05/23/19 08:22 White Blood Count 3.9 K/UL (4.8-10.8) L Red Blood Count 3.55 M/UL (4.70-6.10) L Hemoglobin 10.4 G/DL (14.2-18.0) L Hematocrit 30.7 % (42.0-52.0) L Mean Corpuscular Volume 86 FL (80-99) Mean Corpuscular Hemoglobin 29.3 PG (27.0-31.0) Mean Corpuscular Hemoglobin Concent 33.9 G/DL (32.0-36.0) Red Cell Distribution Width 16.9 % (11.6-14.8) H Platelet Count 122 K/UL (150-450) L Mean Platelet Volume 6.3 FL (6.5-10.1) L Neutrophils (%) (Auto) 71.9 % (45.0-75.0) Lymphocytes (%) (Auto) 15.1 % (20.0-45.0) L Monocytes (%) (Auto) 10.4 % (1.0-10.0) H Eosinophils (%) (Auto) 0.3 % (0.0-3.0) Basophils (%) (Auto) 2.2 % (0.0-2.0) H Sodium Level 138 MMOL/L (136-145) Potassium Level 3.7 MMOL/L (3.5-5.1) Chloride Level 105 MMOL/L (98-107) Carbon Dioxide Level 23 MMOL/L (21-32) Anion Gap 11 mmol/L (5-15) Blood Urea Nitrogen 15 mg/dL (7-18) Creatinine 1.1 MG/DL (0.55-1.30) Estimat Glomerular Filtration Rate mL/min (>60) Glucose Level 111 MG/DL (74-106) H Calcium Level 7.8 MG/DL (8.5-10.1) L Phosphorus Level 2.2 MG/DL (2.5-4.9) L Cortisol AM Sample Pending Deborah Zhang MD May 23, 2019 22:40
[2019-05-24] VITALS: BP 105/64
[2019-05-24 04:00] VITALS: BP 95/56
--- NOTE | 2019-05-24 07:20 | NUR ---
NURSE NOTES: Received report from Will [place]. Patient awake and orientedx3 and uruguayan speaking only. Able to make needs known. No c/o pain or no acute distress noted. Bed in it's lowest position and locked. No c/o pain. No acute distress noted. On contact isolation for VRE rectum. Call light within easy reach. Will continue to plan of care.
[2019-05-24 07:44] LABS: BASOPHILS % (AUTO) 1.6 % (0.0-2.0); EOSINOPHILS % (AUTO) 0.5 % (0.0-3.0); HEMATOCRIT 29.1 % (42.0-52.0); LYMPHOCYTES % (AUTO) 16.1 % (20.0-45.0); MEAN CORPUSCULAR VOLUME 86 FL (80-99); MONOCYTES % (AUTO) 11.8 % (1.0-10.0); NEUTROPHILS % (AUTO) 69.9 % (45.0-75.0); PLATELET COUNT 122 K/UL (150-450); RED BLOOD COUNT 3.38 M/UL (4.70-6.10); RED CELL DISTRIBUTION WIDTH 16.5 % (11.6-14.8); WHITE BLOOD COUNT 3.5 K/UL (4.8-10.8)
[2019-05-24 08:00] VITALS: BP 110/68
[2019-05-24 08:22] LABS: ANION GAP 9 mmol/L (5-15); BLOOD UREA NITROGEN 18 mg/dL (7-18); CALCIUM 7.8 MG/DL (8.5-10.1); CARBON DIOXIDE 24 MMOL/L (21-32); CHLORIDE 106 MMOL/L (98-107); CREATININE 1.2 MG/DL (0.55-1.30); POTASSIUM 3.8 MMOL/L (3.5-5.1); SODIUM 139 MMOL/L (136-145)
[2019-05-24] MEDS: Tamsulosin 0.4mg cap ORAL SCH (08:32)
[2019-05-24] MEDS: Magnesium Oxide 400mg tab ORAL SCH ×3 (08:32→17:03)
[2019-05-24] MEDS: Aspirin EC 81mg tab ORAL SCH (08:32)
[2019-05-24] MEDS: Azithromycin 250mg tab ORAL SCH (08:32)
[2019-05-24] MEDS: Bactrim SS Tab ORAL SCH (08:32)
[2019-05-24] MEDS: Sodium Bicarbonate 650mg Tab ORAL SCH ×2 (08:32→17:03)
[2019-05-24] MEDS: Phospha 250 Neutral tab ORAL SCH ×4 (08:32→20:57)
[2019-05-24] MEDS: Cefepime HCl 2 GM in D5W 55 ML IVPB SCH (08:34)
--- NOTE | 2019-05-24 10:36 | Nephrology Progress Note ---
Assessment/Plan Problem List: (1) Hypokalemia (2) Hypomagnesemia (3) Hypophosphatemia (4) Electrolyte abnormality (5) Dehydration (6) Pneumonia (7) CLL (chronic lymphocytic leukemia) Plan phos still low 2.2, now 2.8 , Mg oxide for Mg replacement replace orally abnormal lab could be from meds for CLL K better, hydration good, stop iv fluid watch po intake Subjective ROS Limited/Unobtainable: Yes Objective Objective Last 24 Hour Vital Signs Date Time Temp Pulse Resp B/P (MAP) Pulse Ox O2 Delivery O2 Flow Rate FiO2 05/24/19 09:00 Room Air 05/24/19 08:00 97.7 70 19 110/68 (82) 97 05/24/19 08:00 91 05/24/19 04:00 80 05/24/19 04:00 97.6 79 18 95/56 (69) 95 05/24/19 00:00 85 05/24/19 00:00 97.9 88 18 105/64 (78) 95 05/23/19 21:00 Room Air 05/23/19 20:00 97.6 89 18 101/66 (78) 94 05/23/19 20:00 86 101 106 05/23/19 20:00 83 05/23/19 16:00 82 05/23/19 15:51 97.8 79 18 96/65 (75) 95 05/23/19 12:00 98.2 82 18 99/62 (74) 96 05/23/19 12:00 83 Intake and Output 05/23/19 05/24/19 19:00 07:00 Intake Total 480 ml 120 ml Output Total 600 ml 200 ml Balance -120 ml -80 ml Intake Oral 480 ml 120 ml Output Urine Total 600 ml 200 ml # Voids 2 2 Laboratory Tests 05/24/19 05:05: White Blood Count 3.5L, Red Blood Count 3.38L, Hemoglobin 10.0L, Hematocrit 29.1L, Mean Corpuscular Volume 86, Mean Corpuscular Hemoglobin 29.5, Mean Corpuscular Hemoglobin Concent 34.3, Red Cell Distribution Width 16.5H, Platelet Count 122L, Mean Platelet Volume 6.9, Neutrophils (%) (Auto) 69.9, Lymphocytes (%) (Auto) 16.1L, Monocytes (%) (Auto) 11.8H, Eosinophils (%) (Auto ) 0.5, Basophils (%) (Auto) 1.6, Sodium Level 139, Potassium Level 3.8, Chloride Level 106, Carbon Dioxide Level 24, Anion Gap 9, Blood Urea Nitrogen 18 , Creatinine 1.2, Estimat Glomerular Filtration Rate , Glucose Level 93, Calcium Level 7.8L, Phosphorus Level 2.8 Height (Feet): 5 Height (Inches): 7.00 Weight (Pounds): 143 General Appearance: no apparent distress EENT: normal ENT inspection Neck: normal alignment Cardiovascular: normal rate Respiratory/Chest: lungs clear Abdomen: non tender Extremities: no edema 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
[2019-05-24 12:00] VITALS: BP 96/63
--- NOTE | 2019-05-24 13:46 | Pulmonology Progress Note ---
Assessment/Plan Assessment/Plan Pulmonary Progress Note. 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 No loss of consciousness. No fall. No chest pain. No fevers or chills. No nausea, vomiting, diarrhea, or constipation. Laboratory evaluation was significant for baseline pancytopenia. ABG was 7.51/28/74/92/95, and troponin was negative initially and then 0.018. Urinalysis was unremarkable. Urine tox screen was unremarkable and the remainder of the laboratory workup was unremarkable except for mild transaminitis and elevated alkaline phosphatase. No new complaints, Renal and Cardiology following CT confirms Pneumonia, Hilar LN PAST MEDICAL HISTORY: 1. CLL. 2. CAD. 3. CKD. 4. GERD. 5. PCP pneumonia in the past. 6. BPH. 7. Chronic indwelling Mandujano catheter. 8. History of septic shock in the past with glabrata fungemia. 9. History of multiple UTIs in the past. ALLERGIES: No known drug allergies. MEDICATIONS: Prior to admission medications reviewed. Current medications reviewed. SOCIAL HISTORY: He was at rehabilitation center until recently, now he is at home. No tobacco, alcohol, or drug use. FAMILY HISTORY: Noncontributory. REVIEW OF SYSTEMS: Negative on history of present illness. PHYSICAL EXAMINATION: VITAL SIGNS NOTED: GENERAL: He is well-developed, well-nourished, elderly male, in no acute distress. Awake, alert, and oriented x3. HEENT: Normocephalic and atraumatic. Oropharynx is clear with moist mucous membranes. NECK: Supple without lymphadenopathy or jugular venous distention. CHEST: Clear to auscultation bilaterally. HEART: Regular rate and rhythm. ABDOMEN: Soft, nontender, and nondistended. EXTREMITIES: No cyanosis, clubbing, or edema Labs noted Chest x-ray in the emergency department shows some mild interstitial prominence ASSESSMENT: The patient is an 83-year-old male with a history of CAD, CKD, GERD, CLL, prior PCP pneumonia, BPH, urinary Mandujano, protein-calorie malnutrition, deconditioning, presenting with a presyncopal episode and concern initially for sepsis, now hemodynamically stable. 1. Presyncopal episode, possibly vasovagal versus dehydration. 2. Lactic acidosis, resolved. 3. Possible underlying infectious process, though no obvious source. 4. Abnormal LFTs. 5. History of PCP pneumonia in the past. 6. CAD. 7. CKD. 8. GERD. 9. CLL. 10. Pancytopenia. PLAN: 1. Continue telemetry. 2. Check echo, CT brain, carotid duplex. 3. Monitor volumes and renal function, maintenance IV fluids, replete electrolytes, renal evaluation. 4. Continue Rocephin and azithromycin for now (day 2), follow up cultures, though I doubt the patient is infected and with likely curtailed in next 1 to 2 days, Infectious Diseases evaluation. 5. Monitor LFTs, check lipase, check abdominal ultrasound. 6. Continue Bactrim for PCP prophylaxis. 7. Continue prior to admission medications. 8. DVT prophylaxis, SCDs. 9. The patient is a Full Code. 10. Continue to discuss goals of care. 11. PT/OT. CT Chest: 1. Right infrahilar airspace consolidation suspicious for pneumonia. 2. Pulmonary edema with bilateral moderate pleural effusions. 3. Right infrahilar/subcarinal soft tissue mass which may represent reactive subcarinal lymphadenopathy; however, evaluation is limited in the absence of intravenous contrast and neoplastic etiologies such as metastatic disease, primary pulmonary neoplasm, or esophageal neoplasm cannot be excluded. 4. Right hilar lymphadenopathy, incompletely evaluated in the absence of intravenous contrast. 5. Ascending and arch aortic aneurysms. 6. Splenomegaly with hypodense splenic lesion which is nonspecific but may represent lymphocele or hemangioma. 7. Ascites. Subjective ROS Limited/Unobtainable: No Allergies: Coded Allergies: No Known Allergies (Unverified , 05/18/19) Objective Last 24 Hour Vital Signs Date Time Temp Pulse Resp B/P (MAP) Pulse Ox O2 Delivery O2 Flow Rate FiO2 05/24/19 12:00 97.9 79 20 96/63 (74) 97 05/24/19 12:00 87 05/24/19 09:00 79 96 114 05/24/19 09:00 Room Air 05/24/19 08:00 97.7 70 19 110/68 (82) 97 05/24/19 08:00 91 05/24/19 04:00 80 05/24/19 04:00 97.6 79 18 95/56 (69) 95 05/24/19 00:00 85 05/24/19 00:00 97.9 88 18 105/64 (78) 95 05/23/19 21:00 Room Air 05/23/19 20:00 97.6 89 18 101/66 (78) 94 05/23/19 20:00 86 101 106 05/23/19 20:00 83 05/23/19 16:00 82 05/23/19 15:51 97.8 79 18 96/65 (75) 95 Intake and Output 05/23/19 05/24/19 19:00 07:00 Intake Total 480 ml 120 ml Output Total 600 ml 200 ml Balance -120 ml -80 ml Intake Oral 480 ml 120 ml Output Urine Total 600 ml 200 ml # Voids 2 2 Laboratory Tests 05/24/19 05:05: White Blood Count 3.5L, Red Blood Count 3.38L, Hemoglobin 10.0L, Hematocrit 29.1L, Mean Corpuscular Volume 86, Mean Corpuscular Hemoglobin 29.5, Mean Corpuscular Hemoglobin Concent 34.3, Red Cell Distribution Width 16.5H, Platelet Count 122L, Mean Platelet Volume 6.9, Neutrophils (%) (Auto) 69.9, Lymphocytes (%) (Auto) 16.1L, Monocytes (%) (Auto) 11.8H, Eosinophils (%) (Auto ) 0.5, Basophils (%) (Auto) 1.6, Sodium Level 139, Potassium Level 3.8, Chloride Level 106, Carbon Dioxide Level 24, Anion Gap 9, Blood Urea Nitrogen 18 , Creatinine 1.2, Estimat Glomerular Filtration Rate , Glucose Level 93, Calcium Level 7.8L, Phosphorus Level 2.8 Current Medications Medications (Trade) Dose Ordered Sig/Tony Route PRN Reason Start Time Stop Time Status Last Admin Dose Admin Aspirin (Ecotrin) 81 mg DAILY ORAL 05/19/19 09:00 06/18/19 08:59 05/24/19 08:32 Azithromycin (Zithromax) 500 mg DAILY ORAL 05/21/19 16:00 05/25/19 08:59 05/24/19 08:32 Cefepime HCl 2 gm/ Dextrose 55 ml @ 110 mls/hr DAILY IVPB 05/24/19 09:00 05/26/19 11:00 05/24/19 08:34 Docusate Sodium (Colace) 100 mg BEDTIME ORAL 05/19/19 21:00 06/18/19 20:59 05/23/19 20:53 Famotidine (Pepcid) 20 mg DAILY ORAL 05/19/19 09:00 06/18/19 08:59 05/24/19 08:32 Finasteride (Proscar) 5 mg DAILY ORAL 05/19/19 09:00 06/18/19 08:59 05/24/19 08:32 Magnesium Oxide (Mag-Ox 400mg) 400 mg THREE TIMES A DAY ORAL 05/20/19 09:00 06/19/19 08:59 05/24/19 13:05 Ondansetron HCl (Zofran) 4 mg Q6H PRN IVP Nausea & Vomiting 05/19/19 03:15 06/18/19 03:14 Phosphorus (Phospha 250 Neutral) 250 mg QID ORAL 05/23/19 13:00 06/22/19 12:59 05/24/19 13:05 Sodium Bicarbonate (NaHCO3) 650 mg BID ORAL 05/19/19 09:00 06/18/19 08:59 05/24/19 08:32 Tamsulosin HCl (Flomax) 0.4 mg DAILY ORAL 05/19/19 09:00 06/18/19 08:59 05/24/19 08:32 Tramadol HCl (Ultram) 50 mg Q6H PRN ORAL for pain 05/19/19 02:30 05/26/19 02:29 Trimethoprim/ Sulfamethoxazole (Bactrim Single Strength) 1 tab DAILY ORAL 05/19/19 09:00 05/26/19 08:59 05/24/19 08:32 Anthony Mitchell MD May 24, 2019 13:46
[2019-05-24 16:00] VITALS: BP 108/62
--- NOTE | 2019-05-24 19:30 | NUR ---
HAND-OFF: Report given to Danika [place]. Pt remains stable.
--- NOTE | 2019-05-24 19:34 | NUR ---
NURSE NOTES: RECEIVED PATIENT ASLEEP, EASILY AROUSABLE, NO COMPLAINTS OF PAIN AT THIS TIME. FALL PRECAUTIONS IN PLACE: CALL LIGHT, BEDSIDE TABLE AND URINAL WITHIN REACH, BED IN LOW POSITION AND BED ALARM ON. WILL CONTINUE WITH PLAN OF CARE.
--- NOTE | 2019-05-24 19:34 | Infectious Diseases Prog Note ---
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 , with H/O PCP pneumonia (3) CLL (chronic lymphocytic leukemia) Assessment & Plan: on rituxan monthly , follow up with oncology (4) Weakness Assessment & Plan: PT/OT eval (5) Hilar adenopathy Assessment & Plan: recommend close follow up with repeated CT chest, and close monitor by costume mistress Subjective Constitutional: Reports: no symptoms HEENT: Reports: no symptoms Respiratory: Reports: no symptoms Breasts: Reports: no symptoms Cardiovascular: Reports: no symptoms Gastrointestinal/Abdominal: Reports: no symptoms Genitourinary: Reports: no symptoms Neurologic: Reports: no symptoms Psychiatric: Reports: no symptoms Skin: Reports: no symptoms Endocrine: Reports: no symptoms Hematologic: Reports: no symptoms Musculoskeletal: Reports: no symptoms Allergies: Coded Allergies: No Known Allergies (Unverified , 05/18/19) Objective Vital Signs Last 24 Hour Vital Signs Date Time Temp Pulse Resp B/P (MAP) Pulse Ox O2 Delivery O2 Flow Rate FiO2 05/24/19 16:00 88 05/24/19 16:00 98.0 71 20 108/62 (77) 96 05/24/19 12:00 97.9 79 20 96/63 (74) 97 05/24/19 12:00 87 05/24/19 09:00 79 96 114 05/24/19 09:00 Room Air 05/24/19 08:00 97.7 70 19 110/68 (82) 97 05/24/19 08:00 91 05/24/19 04:00 80 05/24/19 04:00 97.6 79 18 95/56 (69) 95 05/24/19 00:00 85 05/24/19 00:00 97.9 88 18 105/64 (78) 95 05/23/19 21:00 Room Air 05/23/19 20:00 97.6 89 18 101/66 (78) 94 05/23/19 20:00 86 101 106 05/23/19 20:00 83 Height (Feet): 5 Height (Inches): 7.00 Weight (Pounds): 143 General Appearance: WD/WN, no acute distress HEENT: normocephalic, atraumatic, anicteric, mucous membranes moist, PERRL Respiratory/Chest: chest wall non-tender, lungs clear, normal breath sounds, no respiratory distress, no accessory muscle use Cardiovascular: normal peripheral pulses, normal rate, regular rhythm, no gallop/murmur, no JVD Abdomen: normal bowel sounds, soft, non tender, no organomegaly, non distended , no mass, no scars Genitourinary: normal external genitalia Extremities: no cyanosis, no clubbing Skin: no rash, no lesions, no ulcers Neurologic/Psychiatric: elevator examiner and adjuster II-XII grossly normal, no motor/sensory deficits, alert, oriented x 3, responsive Lymphatic: no neck adenopathy, no groin adenopathy Musculoskeletal: normal muscle bulk, no effusion Laboratory Tests Test 05/24/19 05:05 White Blood Count 3.5 K/UL (4.8-10.8) L Red Blood Count 3.38 M/UL (4.70-6.10) L Hemoglobin 10.0 G/DL (14.2-18.0) L Hematocrit 29.1 % (42.0-52.0) L Mean Corpuscular Volume 86 FL (80-99) Mean Corpuscular Hemoglobin 29.5 PG (27.0-31.0) Mean Corpuscular Hemoglobin Concent 34.3 G/DL (32.0-36.0) Red Cell Distribution Width 16.5 % (11.6-14.8) H Platelet Count 122 K/UL (150-450) L Mean Platelet Volume 6.9 FL (6.5-10.1) Neutrophils (%) (Auto) 69.9 % (45.0-75.0) Lymphocytes (%) (Auto) 16.1 % (20.0-45.0) L Monocytes (%) (Auto) 11.8 % (1.0-10.0) H Eosinophils (%) (Auto) 0.5 % (0.0-3.0) Basophils (%) (Auto) 1.6 % (0.0-2.0) Sodium Level 139 MMOL/L (136-145) Potassium Level 3.8 MMOL/L (3.5-5.1) Chloride Level 106 MMOL/L (98-107) Carbon Dioxide Level 24 MMOL/L (21-32) Anion Gap 9 mmol/L (5-15) Blood Urea Nitrogen 18 mg/dL (7-18) Creatinine 1.2 MG/DL (0.55-1.30) Estimat Glomerular Filtration Rate mL/min (>60) Glucose Level 93 MG/DL (74-106) Calcium Level 7.8 MG/DL (8.5-10.1) L Phosphorus Level 2.8 MG/DL (2.5-4.9) Current Medications Medications (Trade) Dose Ordered Sig/Tony Route PRN Reason Start Time Stop Time Status Last Admin Dose Admin Aspirin (Ecotrin) 81 mg DAILY ORAL 05/19/19 09:00 06/18/19 08:59 05/24/19 08:32 Azithromycin (Zithromax) 500 mg DAILY ORAL 05/21/19 16:00 05/25/19 08:59 05/24/19 08:32 Cefepime HCl 2 gm/ Dextrose 55 ml @ 110 mls/hr DAILY IVPB 05/24/19 09:00 05/26/19 11:00 05/24/19 08:34 Docusate Sodium (Colace) 100 mg BEDTIME ORAL 05/19/19 21:00 06/18/19 20:59 05/23/19 20:53 Famotidine (Pepcid) 20 mg DAILY ORAL 05/19/19 09:00 06/18/19 08:59 05/24/19 08:32 Finasteride (Proscar) 5 mg DAILY ORAL 05/19/19 09:00 06/18/19 08:59 05/24/19 08:32 Magnesium Oxide (Mag-Ox 400mg) 400 mg THREE TIMES A DAY ORAL 05/20/19 09:00 06/19/19 08:59 05/24/19 17:03 Ondansetron HCl (Zofran) 4 mg Q6H PRN IVP Nausea & Vomiting 05/19/19 03:15 06/18/19 03:14 Phosphorus (Phospha 250 Neutral) 250 mg QID ORAL 05/23/19 13:00 06/22/19 12:59 05/24/19 17:03 Sodium Bicarbonate (NaHCO3) 650 mg BID ORAL 05/19/19 09:00 06/18/19 08:59 05/24/19 17:03 Tamsulosin HCl (Flomax) 0.4 mg DAILY ORAL 05/19/19 09:00 06/18/19 08:59 05/24/19 08:32 Tramadol HCl (Ultram) 50 mg Q6H PRN ORAL for pain 05/19/19 02:30 05/26/19 02:29 Trimethoprim/ Sulfamethoxazole (Bactrim Single Strength) 1 tab DAILY ORAL 05/19/19 09:00 05/26/19 08:59 05/24/19 08:[address] M.D. May 24, 2019 19:34
[2019-05-24 20:00] VITALS: BP 104/60
[2019-05-24] MEDS: Docusate 100mg cap ORAL SCH ×2 (20:58→21:00)
--- NOTE | 2019-05-24 21:33 | Cardiology Progress Note ---
Assessment/Plan Assessment/Plan Tno changes, mild improvement Subjective Subjective The patient is resting in his bed. doing Ok, mild weakness, no dizziness no palptiations Objective Last 24 Hour Vital Signs Date Time Temp Pulse Resp B/P (MAP) Pulse Ox O2 Delivery O2 Flow Rate FiO2 05/24/19 16:00 88 05/24/19 16:00 98.0 71 20 108/62 (77) 96 05/24/19 12:00 97.9 79 20 96/63 (74) 97 05/24/19 12:00 87 05/24/19 09:00 79 96 114 05/24/19 09:00 Room Air 05/24/19 08:00 97.7 70 19 110/68 (82) 97 05/24/19 08:00 91 05/24/19 04:00 80 05/24/19 04:00 97.6 79 18 95/56 (69) 95 05/24/19 00:00 85 05/24/19 00:00 97.9 88 18 105/64 (78) 95 General Appearance: no apparent distress EENT: PERRL/EOMI Neck: normal alignment Rhythm: NSR Cardiovascular: normal rate Respiratory/Chest: crackles/rales Abdomen: soft Extremities: non-tender Intake and Output 05/23/19 05/24/19 19:00 07:00 Intake Total 480 ml 120 ml Output Total 600 ml 200 ml Balance -120 ml -80 ml Intake Oral 480 ml 120 ml Output Urine Total 600 ml 200 ml # Voids 2 2 Laboratory Tests Test 05/24/19 05:05 White Blood Count 3.5 K/UL (4.8-10.8) L Red Blood Count 3.38 M/UL (4.70-6.10) L Hemoglobin 10.0 G/DL (14.2-18.0) L Hematocrit 29.1 % (42.0-52.0) L Mean Corpuscular Volume 86 FL (80-99) Mean Corpuscular Hemoglobin 29.5 PG (27.0-31.0) Mean Corpuscular Hemoglobin Concent 34.3 G/DL (32.0-36.0) Red Cell Distribution Width 16.5 % (11.6-14.8) H Platelet Count 122 K/UL (150-450) L Mean Platelet Volume 6.9 FL (6.5-10.1) Neutrophils (%) (Auto) 69.9 % (45.0-75.0) Lymphocytes (%) (Auto) 16.1 % (20.0-45.0) L Monocytes (%) (Auto) 11.8 % (1.0-10.0) H Eosinophils (%) (Auto) 0.5 % (0.0-3.0) Basophils (%) (Auto) 1.6 % (0.0-2.0) Sodium Level 139 MMOL/L (136-145) Potassium Level 3.8 MMOL/L (3.5-5.1) Chloride Level 106 MMOL/L (98-107) Carbon Dioxide Level 24 MMOL/L (21-32) Anion Gap 9 mmol/L (5-15) Blood Urea Nitrogen 18 mg/dL (7-18) Creatinine 1.2 MG/DL (0.55-1.30) Estimat Glomerular Filtration Rate mL/min (>60) Glucose Level 93 MG/DL (74-106) Calcium Level 7.8 MG/DL (8.5-10.1) L Phosphorus Level 2.8 MG/DL (2.5-4.9) Deborah Zhang MD May 24, 2019 21:33
[2019-05-25] VITALS: BP 107/67
--- NOTE | 2019-05-25 | NUR ---
NURSE NOTES: KEPT PATIENT CLEAN AND DRY, BED BATH GIVEN, SKIN LOTION APPLIED. PLACED OPTIFOAM TO MID BACK FOR PROTECTION, CALAZIME CREAM APPLIED TO PERINEAL AREA. PATIENT TURNED AND REPOSITIONED. BLE ELEVATED ON PILLOW WITH HEELS FLOATING. LINEN CHANGED
[2019-05-25 04:00] VITALS: BP 99/62
[2019-05-25 07:09] LABS: BASOPHILS % (AUTO) 1.5 % (0.0-2.0); EOSINOPHILS % (AUTO) 0.6 % (0.0-3.0); HEMATOCRIT 28.5 % (42.0-52.0); HEMOGLOBIN 9.8 G/DL (14.2-18.0); LYMPHOCYTES % (AUTO) 19.2 % (20.0-45.0); MEAN CORPUSCULAR VOLUME 86 FL (80-99); MONOCYTES % (AUTO) 12.3 % (1.0-10.0); NEUTROPHILS % (AUTO) 66.4 % (45.0-75.0); PLATELET COUNT 134 K/UL (150-450); RED BLOOD COUNT 3.32 M/UL (4.70-6.10); WHITE BLOOD COUNT 3.9 K/UL (4.8-10.8)
--- NOTE | 2019-05-25 07:13 | NUR ---
HAND-OFF: Report given to Tyrone MARTINEZ. PATIENT ASLEEP, NO SIGNS OF DISTRESS NOTED.
[2019-05-25 07:32] LABS: ANION GAP 8 mmol/L (5-15); BLOOD UREA NITROGEN 17 mg/dL (7-18); CARBON DIOXIDE 26 MMOL/L (21-32); CHLORIDE 104 MMOL/L (98-107); CREATININE 1.2 MG/DL (0.55-1.30); POTASSIUM 3.9 MMOL/L (3.5-5.1); SODIUM 137 MMOL/L (136-145)
[2019-05-25 08:00] VITALS: BP 106/70
--- NOTE | 2019-05-25 08:08 | NUR ---
NURSE NOTES: Pt awake, eating breakfast, HOB in fowlers, pt Ox3 no confusion, SR on the monitor, denies pain, wallisian speaking, possible D/C to SNF, no s/s of distress or sob noted.
[2019-05-25] MEDS: Phospha 250 Neutral tab ORAL SCH ×2 (09:02→13:26)
[2019-05-25] MEDS: Aspirin EC 81mg tab ORAL SCH (09:02)
[2019-05-25] MEDS: Magnesium Oxide 400mg tab ORAL SCH ×2 (09:02→13:26)
[2019-05-25] MEDS: Tamsulosin 0.4mg cap ORAL SCH (09:02)
[2019-05-25] MEDS: Sodium Bicarbonate 650mg Tab ORAL SCH (09:02)
[2019-05-25] MEDS: Bactrim SS Tab ORAL SCH (09:03)
[2019-05-25] MEDS: Cefepime HCl 2 GM in D5W 55 ML IVPB SCH (09:57)
[2019-05-25 12:00] VITALS: BP 101/60
--- NOTE | 2019-05-25 12:26 | NUR ---
RD ASSESSMENT & RECOMMENDATIONS SEE CARE ACTIVITY FOR COMPLETE ASSESSMENT DAILY ESTIMATED NEEDS: Needs based on Cardiac, underweight, wasting; 57.7kg 30-35 kcals/kg 1731- 2020 total kcals 1-1.2 g protein/kg 58-69 g total protein 25-30 mL/kg 1443- 1731 total fluid mLs NUTRITION DIAGNOSIS: Increased kcal and pro needs r/t underweight status AEB pt is 86% of [place] Body Weight, and has moderate BL LE and clavicular wasting. CURRENT DIET:Regular PO DIET RECOMMENDATIONS: Regular (texture per AERONAUTICAL ENGINEERING OFFICER) ADDITIONAL RECOMMENDATIONS: 1) Monitor lytes/ adm w/ dehydration 2) Provide Ensure TID w/ meals 3) Possible need for laxitives? last bm 05/23 4) Low Na diet w/ consistant good po (>75%) 5) Add snacks in b/w meals 6) Re-calibrate bed scale (EMR wt: 143# vs 127# bed scale) 7) F/up w/ WC eval (ordered 05/25)
[2019-05-25 13:04] VITALS: BP 101/60
--- NOTE | 2019-05-25 13:11 | Infectious Diseases Prog Note ---
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 , with H/O PCP pneumonia (3) CLL (chronic lymphocytic leukemia) Assessment & Plan: on rituxan monthly , follow up with oncology (4) Weakness Assessment & Plan: PT/OT eval (5) Hilar adenopathy Assessment & Plan: recommend close follow up with repeated CT chest, and close monitor by purchasing agent Subjective Constitutional: Reports: no symptoms HEENT: Reports: no symptoms Respiratory: Reports: no symptoms Breasts: Reports: no symptoms Cardiovascular: Reports: no symptoms Gastrointestinal/Abdominal: Reports: no symptoms Genitourinary: Reports: no symptoms Neurologic: Reports: no symptoms Psychiatric: Reports: no symptoms Skin: Reports: no symptoms Endocrine: Reports: no symptoms Hematologic: Reports: no symptoms Musculoskeletal: Reports: no symptoms Allergies: Coded Allergies: No Known Allergies (Unverified , 05/18/19) Objective Vital Signs Last 24 Hour Vital Signs Date Time Temp Pulse Resp B/P (MAP) Pulse Ox O2 Delivery O2 Flow Rate FiO2 05/25/19 13:04 97.9 17 101/60 (74) 95 05/25/19 12:00 97.9 18 101/60 (74) 95 05/25/19 10:44 Room Air 05/25/19 08:00 98.5 90 18 106/70 (82) 94 05/25/19 07:46 84 05/25/19 04:00 98.1 82 18 99/62 (74) 96 05/25/19 04:00 79 05/25/19 00:00 91 05/25/19 00:00 97.3 89 18 107/67 (80) 95 05/24/19 21:46 88 91 99 05/24/19 21:00 Room Air 05/24/19 20:00 97.5 88 20 104/60 (75) 95 05/24/19 20:00 85 05/24/19 16:00 88 05/24/19 16:00 98.0 71 20 108/62 (77) 96 Height (Feet): 5 Height (Inches): 7.00 Weight (Pounds): 143 General Appearance: WD/WN, no acute distress HEENT: normocephalic, atraumatic, anicteric, mucous membranes moist, PERRL Respiratory/Chest: chest wall non-tender, lungs clear, normal breath sounds, no respiratory distress, no accessory muscle use Cardiovascular: normal peripheral pulses, normal rate, regular rhythm, no gallop/murmur, no JVD Abdomen: normal bowel sounds, soft, non tender, no organomegaly, non distended , no mass, no scars Genitourinary: normal external genitalia Extremities: no cyanosis, no clubbing Skin: no rash, no lesions, no ulcers Neurologic/Psychiatric: 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 grossly normal, no motor/sensory deficits, alert, oriented x 3, responsive Laboratory Tests Test 05/25/19 05:40 White Blood Count 3.9 K/UL (4.8-10.8) L Red Blood Count 3.32 M/UL (4.70-6.10) L Hemoglobin 9.8 G/DL (14.2-18.0) L Hematocrit 28.5 % (42.0-52.0) L Mean Corpuscular Volume 86 FL (80-99) Mean Corpuscular Hemoglobin 29.6 PG (27.0-31.0) Mean Corpuscular Hemoglobin Concent 34.5 G/DL (32.0-36.0) Red Cell Distribution Width 17.0 % (11.6-14.8) H Platelet Count 134 K/UL (150-450) L Mean Platelet Volume 6.2 FL (6.5-10.1) L Neutrophils (%) (Auto) 66.4 % (45.0-75.0) Lymphocytes (%) (Auto) 19.2 % (20.0-45.0) L Monocytes (%) (Auto) 12.3 % (1.0-10.0) H Eosinophils (%) (Auto) 0.6 % (0.0-3.0) Basophils (%) (Auto) 1.5 % (0.0-2.0) Sodium Level 137 MMOL/L (136-145) Potassium Level 3.9 MMOL/L (3.5-5.1) Chloride Level 104 MMOL/L (98-107) Carbon Dioxide Level 26 MMOL/L (21-32) Anion Gap 8 mmol/L (5-15) Blood Urea Nitrogen 17 mg/dL (7-18) Creatinine 1.2 MG/DL (0.55-1.30) Estimat Glomerular Filtration Rate mL/min (>60) Glucose Level 99 MG/DL (74-106) Calcium Level 8.0 MG/DL (8.5-10.1) L Phosphorus Level 3.0 MG/DL (2.5-4.9) Current Medications Medications (Trade) Dose Ordered Sig/Tony Route PRN Reason Start Time Stop Time Status Last Admin Dose Admin Aspirin (Ecotrin) 81 mg DAILY ORAL 05/19/19 09:00 06/18/19 08:59 05/25/19 09:02 Azithromycin (Zithromax) 500 mg Q24H ORAL 05/25/19 14:00 05/26/19 23:59 Cefepime HCl 2 gm/ Dextrose 55 ml @ 110 mls/hr DAILY IVPB 05/24/19 09:00 05/26/19 11:00 05/25/19 09:57 Docusate Sodium (Colace) 100 mg BEDTIME ORAL 05/19/19 21:00 06/18/19 20:59 05/23/19 20:53 Famotidine (Pepcid) 20 mg DAILY ORAL 05/19/19 09:00 06/18/19 08:59 05/25/19 09:02 Finasteride (Proscar) 5 mg DAILY ORAL 05/19/19 09:00 06/18/19 08:59 05/25/19 09:02 Magnesium Oxide (Mag-Ox 400mg) 400 mg THREE TIMES A DAY ORAL 05/20/19 09:00 06/19/19 08:59 05/25/19 09:02 Ondansetron HCl (Zofran) 4 mg Q6H PRN IVP Nausea & Vomiting 05/19/19 03:15 06/18/19 03:14 Phosphorus (Phospha 250 Neutral) 250 mg QID ORAL 05/23/19 13:00 06/22/19 12:59 05/25/19 09:02 Sodium Bicarbonate (NaHCO3) 650 mg BID ORAL 05/19/19 09:00 06/18/19 08:59 10/28/19 09:02 Tamsulosin HCl (Flomax) 0.4 mg DAILY ORAL 05/19/19 09:00 06/18/19 08:59 05/25/19 09:02 Tramadol HCl (Ultram) 50 mg Q6H PRN ORAL for pain 05/19/19 02:30 05/26/19 02:29 Trimethoprim/ Sulfamethoxazole (Bactrim Single Strength) 1 tab DAILY ORAL 05/19/19 09:00 05/26/19 08:59 05/25/19 09:[address] M.D. May 25, 2019 13:11
--- NOTE | 2019-05-25 13:52 | NUR ---
NURSE NOTES:WOUND CARE NOTES:Pt presented on admission with non-blanching erythema without induration sacrum.R and L heels soft with non-blanching erythema. Pt denied pain when each heel palpated. Pt demonstrated good mobility bed and repositions self when cued. Moisture Barrier Paste applied to sacrum and covered with Optifoam. Cav[place] Skin Barrier applied to both heels.Each heel covered with Optifoam drsg and both heels off-loaded with pillow.
[2019-05-25] MEDS ORDERED: Azithromycin 250mg tab ORAL SCH (14:00)
--- NOTE | 2019-05-25 16:37 | NUR ---
NURSE NOTES: Pt rcvd discharge orders SNF called and report given, IV and ID band removed. Family called about discharge, med recon in packet, Vitals WNL, pt calm and cooperative Ox4, report given to Armani gabriels here to picking machine operator helper the patient
--- NOTE | 2019-05-25 21:54 | Pulmonology Progress Note ---
Assessment/Plan Assessment/Plan Pulmonary Progress Note. 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 No loss of consciousness. No fall. No chest pain. No fevers or chills. No nausea, vomiting, diarrhea, or constipation. Laboratory evaluation was significant for baseline pancytopenia. ABG was 7.51/28/74/92/95, and troponin was negative initially and then 0.018. Urinalysis was unremarkable. Urine tox screen was unremarkable and the remainder of the laboratory workup was unremarkable except for mild transaminitis and elevated alkaline phosphatase. No new complaints, Renal and Cardiology following CT confirms Pneumonia, Hilar LN PAST MEDICAL HISTORY: 1. CLL. 2. CAD. 3. CKD. 4. GERD. 5. PCP pneumonia in the past. 6. BPH. 7. Chronic indwelling Mandujano catheter. 8. History of septic shock in the past with glabrata fungemia. 9. History of multiple UTIs in the past. ALLERGIES: No known drug allergies. MEDICATIONS: Prior to admission medications reviewed. Current medications reviewed. SOCIAL HISTORY: He was at rehabilitation center until recently, now he is at home. No tobacco, alcohol, or drug use. FAMILY HISTORY: Noncontributory. REVIEW OF SYSTEMS: Negative on history of present illness. PHYSICAL EXAMINATION: VITAL SIGNS NOTED: GENERAL: He is well-developed, well-nourished, elderly male, in no acute distress. Awake, alert, and oriented x3. HEENT: Normocephalic and atraumatic. Oropharynx is clear with moist mucous membranes. NECK: Supple without lymphadenopathy or jugular venous distention. CHEST: Clear to auscultation bilaterally. HEART: Regular rate and rhythm. ABDOMEN: Soft, nontender, and nondistended. EXTREMITIES: No cyanosis, clubbing, or edema Labs noted Chest x-ray in the emergency department shows some mild interstitial prominence ASSESSMENT: The patient is an 83-year-old male with a history of CAD, CKD, GERD, CLL, prior PCP pneumonia, BPH, urinary Mandujano, protein-calorie malnutrition, deconditioning, presenting with a presyncopal episode and concern initially for sepsis, now hemodynamically stable. 1. Presyncopal episode, possibly vasovagal versus dehydration. 2. Lactic acidosis, resolved. 3. Possible underlying infectious process, though no obvious source. 4. Abnormal LFTs. 5. History of PCP pneumonia in the past. 6. CAD. 7. CKD. 8. GERD. 9. CLL. 10. Pancytopenia. PLAN: 1. For [facility] SNF 2. FU CT in few weeks 3. Monitor volumes and renal function, maintenance IV fluids, replete electrolytes, renal evaluation. 4. Infectious Diseases following. 5. Continue prior to admission medications. 6. DVT prophylaxis, SCDs. 7. The patient is a Full Code. 8. Continue to discuss goals of care. 9. PT/OT. CT Chest: 1. Right infrahilar airspace consolidation suspicious for pneumonia. 2. Pulmonary edema with bilateral moderate pleural effusions. 3. Right infrahilar/subcarinal soft tissue mass which may represent reactive subcarinal lymphadenopathy; however, evaluation is limited in the absence of intravenous contrast and neoplastic etiologies such as metastatic disease, primary pulmonary neoplasm, or esophageal neoplasm cannot be excluded. 4. Right hilar lymphadenopathy, incompletely evaluated in the absence of intravenous contrast. 5. Ascending and arch aortic aneurysms. 6. Splenomegaly with hypodense splenic lesion which is nonspecific but may represent lymphocele or hemangioma. 7. Ascites. Seen earlier Subjective ROS Limited/Unobtainable: No Allergies: Coded Allergies: No Known Allergies (Unverified , 05/18/19) Objective Last 24 Hour Vital Signs Date Time Temp Pulse Resp B/P (MAP) Pulse Ox O2 Delivery O2 Flow Rate FiO2 05/25/19 13:04 97.9 17 101/60 (74) 95 05/25/19 12:00 97.9 18 101/60 (74) 95 05/25/19 11:41 78 05/25/19 10:44 Room Air 05/25/19 08:00 98.5 90 18 106/70 (82) 94 05/25/19 07:46 84 05/25/19 04:00 98.1 82 18 99/62 (74) 96 05/25/19 04:00 79 05/25/19 00:00 91 05/25/19 00:00 97.3 89 18 107/67 (80) 95 Intake and Output 05/24/19 05/25/19 19:00 07:00 Intake Total 1175 ml 120 ml Output Total 1550 ml 450 ml Balance -375 ml -330 ml Intake Oral 1120 ml 120 ml IV Total 55 ml Output Urine Total 1550 ml 450 ml # Voids 3 4 Laboratory Tests 05/25/19 05:40: White Blood Count 3.9L, Red Blood Count 3.32L, Hemoglobin 9.8L, Hematocrit 28.5L , Mean Corpuscular Volume 86, Mean Corpuscular Hemoglobin 29.6, Mean Corpuscular Hemoglobin Concent 34.5, Red Cell Distribution Width 17.0H, Platelet Count 134L, Mean Platelet Volume 6.2L, Neutrophils (%) (Auto) 66.4, Lymphocytes (%) (Auto) 19.2L, Monocytes (%) (Auto) 12.3H, Eosinophils (%) (Auto ) 0.6, Basophils (%) (Auto) 1.5, Sodium Level 137, Potassium Level 3.9, Chloride Level 104, Carbon Dioxide Level 26, Anion Gap 8, Blood Urea Nitrogen 17 , Creatinine 1.2, Estimat Glomerular Filtration Rate , Glucose Level 99, Calcium Level 8.0L, Phosphorus Level 3.0 Anthony Mitchell MD May 25, 2019 21:54
--- NOTE | 2019-05-26 12:54 | Discharge Summary ---
Discharge Summary Discharge Summary _ DATE OF ADMISSION: 05/18/2019 DATE OF DISCHARGE: 05/25/2019 DISCHARGED BY: Dr Lezama REASON FOR ADMISSION: 83 years old male with history of chronic lymphocytic leukemia, presented for lightheadedness, near syncopal episode. He reported recent nonproductive cough and generalized weakness. Patient felt lightheaded while he was in the bathroom. He lost his balance , but was able to catch himself. He denied any head injury or loss of consciousness. He denied recent fever. No nausea, vomiting, diarrhea. No chest pain or shortness of breath no rash. Patient arrived tachycardic, slightly hypotensive with systolic blood pressure in the high 80s. Patient also was tachypneic and appeared to have increased work of breathing. Laboratory work-up revealed WBC 3.2, hemoglobin 11.6, hematocrit 33.8, platelet count 91. Sodium 134, potassium 3.2. Magnesium 1.6 , phosphorus 1.1. BUN 22, creatinine 1.2. Lactic acid 2.1. Glucose 132. AST 81 , ALT 97. Troponin negative. EKG revealed sinus tachycardia no acute ischemic changes . CK 14. Urinalysis revealed no evidence of urinary tract infection . Urine toxicology screen was negative. Chest x-ray revealed mild interstitial edema, no acute process otherwise. Patient started on empiric antibiotic, pancultured and admitted for further management to monitored floor. CONSULTANTS: filter cloth maker Dr. Katty BOWDEN specialist Dr. Lane outreach educator Dr. Gutiérrez [facility] COURSE: Patient admitted to monitored floor. Echocardiogram revealed preserved ejection fraction 55 to 60%. No evidence of left ventricular hypertrophy. No evidence of pericardial effusion. No evidence of wall motion abnormality. Right ventricular systolic pressure of 20. Locomotive Engineer followed. Serial troponin were negative. EKG revealed no acute ischemic changes. Patient was ruled out for acute myocardial infarction. Patient initially was on the IV fluids. Near syncope was likely volume related , as per filter cloth maker. Cortisol level was stable. CT of the head revealed no evidence of acute intracranial hemorrhage, mass- effect or cortical edema. Carotid duplex was essentially negative. CT of the chest revealed right infrahilar airspace consolidation, suspicious for pneumonia. Pulmonary edema with bilateral moderate pleural effusion. Right hilar l lymphadenopathy. Ascending and arch aortic aneurysms. Splenomegaly with hypodense splenic lesion. Ascites. Right infrascapular/subcarinal soft tissue mass, which may represent reactive subcarinal lymphadenopathy. Infectious disease specialist followed. Blood cultures were negative. Urine culture revealed mixed gram-positive organisms. Antibiotic provided as per ID specialist recommendation. Antitussive provided as needed. Patient was on Zithromax and cefepime empirically for 7 days total. Aspiration precaution maintained. Infectious disease specialist recommended to repeat CT chest in the future for follow-up. Patient was on Rituxan monthly for chronic lymphocytic leukemia. ID specialist recommended continue Bactrim single strength daily for long-term suppression due to history of PCP pneumonia. Grocery Store Clerk closely followed. Patient initially was on the IV hydration. Renal parameters and electrolytes were closely monitored. Electrolytes corrected as needed, including potassium , magnesium , phosphorus. Oral intake encouraged and appeared to be stable. Subsequently IV fluids were discontinued. Prior to discharge all electrolytes stable. BUN from 22 down to 17 and creatinine remained stable. LFT were closely monitored: AST from 81 down to 68 and ALT from 97 down to 89. Total bilirubin down to 1 . Abdominal ultrasound revealed gallbladder wall thickening , no other sonographic indication of acute cholecystitis. Hepatic steatosis. Bilateral pleural effusion. Pain management was addressed as needed. DVT prophylaxis with SCD and GI prophylaxis provided. Flomax and Proscar continued. Supportive care provided. Patient clinically stabilized and was ready for transfer to retirement facility for continuation of care. FINAL DIAGNOSES: Presyncopal episode , probably due to dehydration Pneumonia Chronic lymphocytic leukemia History of Pneumocystis pneumonia Hilar adenopathy Lactic acidosis -resolved BPH with urinary retention Dehydration Electrolyte abnormalities: hypokalemia, hypomagnesemia, hypophosphatemia, CAD GERD Abnormal LFT DISCHARGE MEDICATIONS: See Medication Reconciliation list. DISCHARGE INSTRUCTIONS: Patient was discharged to the retirement facility. Follow up with medical doctor at the facility. I have been assigned to dictate discharge summary for this account. I was not involved in the patient's management. Salena Chauhan NP May 26, 2019 12:54
--- NOTE | 2019-05-26 13:41 | Diagnostic Imaging Report ---
APPROVED REPORT CPT Code: 45556 Vascular Symptoms Comments: AMS. Doppler Spectral Velocity Analysis RightLeft RIGHT SIDE: CCA - Imaging reveals no significant plaque within the extracranial carotid arteries. The Doppler spectral flow analysis is within normal limits throughout the extracranial carotid arteries. VERTEBRAL - The vertebral artery is within normal limits. LEFT SIDE: ICA/ECA/BULB - Imaging reveals irregular, minimal plaque in carotid bulb. ICA VERTEBRAL - The vertebral artery is patent, without evidence of stenosis or steal.
--- NOTE | 2019-05-27 15:23 | Cardiology Report ---
APPROVED REPORT EKG Measurement Heart [id number] Sinus rhythm with marked sinus arrhythmia with frequent premature ventricular complexes Low voltage QRS Prolonged QT Abnormal ECG
== END 2019-05-25 17:03 | DRG 194 ==
LOC: EDBD 15:23 → EMR 15:40 → 2E 17:26 → EDBEDREQ 21:14 → 2E 23:07
DX: J18.9 Pneumonia, unspecified organism (principal); C91.10 Chronic lymphocytic leukemia of B-cell type not having achieved remission; E87.2 Acidosis; I50.22 Chronic systolic (congestive) heart failure; D61.818 Other pancytopenia; E87.6 Hypokalemia; E86.0 Dehydration; R55 Syncope and collapse; N40.1 Benign prostatic hyperplasia with lower urinary tract symptoms; R33.8 Other retention of urine; E83.42 Hypomagnesemia; E83.39 Other disorders of phosphorus metabolism; R59.0 Localized enlarged lymph nodes; I25.10 Atherosclerotic heart disease of native coronary artery without angina pectoris; K21.9 Gastro-esophageal reflux disease without esophagitis; R94.5 Abnormal results of liver function studies; N18.3 Chronic kidney disease, stage 3 (moderate); Z86.19 Personal history of other infectious and parasitic diseases
CPT/HCPCS: 36415; 36600; 70450; 71045; 71250; 76700; 80048; 80053; 80307; 81003; 82248; 82533; 82550; 82553; 82803; 83605; 83735; 83880; 84100; 84443; 84484; 85007; 85025; 86710; 87040; 87081; 87086; 93005; 93306; 93880; 96361; 96365; 96368; 99285; C9399; G0480; J7030; J8499